=== PATIENT | female | born 1950 | race Caucasian/White ===

== ENCOUNTER 2023-06-01 10:08 | Outpatient (AMB) | payer OTHER, SELFPAY ==
--- NOTE | 2023-06-01 10:22 | MHC.PC.OV ---
Vital Signs 06/01/23 10:23 Height 5 ft 5 in Weight 126 lb 2 oz BMI 21.0 BP 120/70 Blood Pressure Location Lt brachial Position Sitting Pulse 52 Pulse Source Pulse Oximeter Pulse Oximetry (%) 98 Oxygen Delivery Method Room Air Intake Visit Reasons: SPOT WELDER LINE/ Medications Intake Note: Patient is a new patient here to establish care for HTN, Asthma. Transferring care from Dr. Christiano Fuentes. Medical records have been requested today. Skilled Nursing Case Manager Required: No Accompanied by: Self / Same As Patient Allergies SKYLAR Inhibitors Adverse Reaction (Mild, Verified 06/01/23 10:52) Rash amlodipine [From [facility]] Adverse Reaction (Mild, Verified 06/01/23 10:52) Rash Medication List - Last Reconciled 06/01/23 by Alvaro Butts PA-C albuterol sulfate 90 mcg/actuation (Ventolin HFA) 2 puffs inhalation Q6H PRN alendronate 35 mg PO QWEEK aspirin-acetaminophen (buffer) 250-250 mg tabs PO PRN calcium carbonate-vitamin D3 250 mg-3.125 mcg (125 unit) (Oyster Shell Calcium-Vitamin D3) 1 tab PO BID fluticasone propionate 50 mcg/actuation 1 spray intranasal DAILY dlzzmzdlsef-pxsfyccmt-gamzojdw 200-62.5-25 mcg (Trelegy Ellipta) 1 inh inhalation DAILY levothyroxine (Levoxyl) 75 mcg PO DAILY losartan 50 mg PO DAILY pravastatin 40 mg PO BEDTIME sumatriptan succinate take 1 tab at onset of headache; if no relief may repeat 1 tab after at least 2 hrs; max = 4 tabs/24 hr PO topiramate XR 25 mg PO BID Tobacco use date assessed: 06/01/23 Fall risk assessment: No Falls in past year Last assessed Fall Risk: 06/01/23 Dental Screening Dental Screen Date: 06/01/23 Did you have a dental visit in the last 12 months?: Yes Did you have a dental problem in the last 6 months where you did not have access to dental care?: No Was dental information given to patient?: Patient has dentist HPI SPOT WELDER LINE/ Medications HPI Details Patient is a 72-year-old female here today for a new patient visit. Previous PCP was at [facility]. Patient has a past medical history significant for moderate persistent asthma, migraine disorder, osteopenia, hypothyroidism, hypertension and hyperlipidemia. Concern--> reports she did get a colonoscopy last year which showed a very large colon polyp that grew fast. There were concerns for possible colon resection needed. She needed repeat colonoscopy in 1 year. Will try to set up with [facility] .. Asthma : Is followed by a registration scheduling specialist in the [place] area. Has been well controlled with current maintenance inhaler p.r.n. use of her albuterol inhaler. .. Migraines : Migraine disorder has been well controlled with daily Topamax and p.r.n. use of Imitrex. .. HTN: Patient's blood pressure acceptable today in office. She does report monitoring her blood pressure at home reports normal readings. .. Osteopenia: Patient continues on half dose of Fosamax for her osteopenia. Did have bone density about 2-3 years ago which showed some improvement, will wait records. Family history of bladder cancer: She reports her brother and her father both diagnosed with bladder cancer. Both were smokers. She does get surveillance imaging on a annual basis with urologist at [facility]. [facility] Medical History (Updated 06/01/23 @ 11:04 by Alvaro Butts PA-C) Mild intermittent asthma, uncomplicated Personal history of colonic polyps Lesion of throat SI joint arthritis Chronic osteoarthritis Osteoarthritis of sacroiliac joint Osteoarthritis of right hip Nabothian cyst Lumbar spondylosis SHEBA positive Colon polyps Closed fracture of right ankle B12 deficiency Asthma Migraine Hyperlipidemia Hypertension Hypothyroidism Allergic rhinitis Osteopenia Surgical History (Updated 06/01/23 @ 12:46 by Alvaro Butts PA-C) History of partial hysterectomy Family History (Updated 06/01/23 @ 10:58 by Alvaro Butts PA-C) Father Bladder cancer Brother Bladder cancer Social History Housing: House e-Cigarette/Vaping Use: Never Used service: No Current occupational status: retired Cognitive needs: No Hearing needs: No Vision needs: Yes Questionnaire PHQ-9 Over the last 2 weeks, how often have you been bothered by any of the following problems? 1. Little interest or pleasure in doing things: not at all 2. Feeling down, depressed, or hopeless: not at all 3. Trouble falling or staying asleep, or sleeping too much: not at all 4. Feeling tired or having little energy: not at all 5. Poor appetite or overeating: not at all 6. Feeling bad about yourself - or that you are a failure or have let yourself or your family down: not at all 7. Trouble concentrating on things, such as reading the newspaper or watching television: not at all 8. Moving or speaking so slowly that other people could have noticed. Or the opposite - being so fidgety or restless that you have been moving around a lot more than usual: not at all 9. Thoughts that you would be better off or of hurting yourself in some way: not at all Total score: 0 Depression Screening Interpretation: Negative Depression Screening Done: Yes 49984 - PHQ-9 Billing: Yes Source: Developed by Drs. Arias Darden, Uzma Quintero, Judson Rascon and colleagues, with an educational zhane from [employer]. Thrive Questionnaire Date Thrive assessed: 06/01/23 I am a: Patient What is your living situation today?: I have a steady place to live Within the past 12 months, did the food you bought not last and you didn't have the money to get more?: Never true Within the past 12 months, did you worry whether your food would run out before you got money to buy more?: Never true Do you have trouble paying for medicines?: No Do you have trouble getting transportation to medical appointments?: No Do you have trouble paying your heating and electricity bill?: No Do you have trouble taking care of your child, family member or friend?: No Do you have trouble with day-to-day activities such as bathing, preparing meals, shopping, managing finances, etc.?: No Are you currently unemployed and looking for a job?: No Are you interested in more education?: No Please select the resources that you would like help with: None Currently or been in a relationship where the following occur: no concerns reported THRIVE Score: 0 AUDIT C Alcohol Use Questionnaire (AUDIT-C) 1. How often do you have a drink containing alcohol?: Never 3. How often do you have six or more drinks on one occasion?: Never Total Score: 0 SO-7 AMB Questionnaire SO-7 Date SO - 7 assessed: 06/01/23 Feeling nervous, anxious, or on edge: 0 = Not at all Not being able to stop or control worryin = Not at all Worrying too much about different things: 0 = Not at all Trouble relaxin = Not at all Being so restless that it is hard to sit still: 0 = Not at all Becoming easily annoyed or irritable: 0 = Not at all Feeling afraid as if something awful might happen: 0 = Not at all Total SO-7 score (0-4 normal; 5-9 mild; 10-14 moderate; 15-21 severe): 0 Source: Developed by Drs. Arias Darden, Uzma Quintero, Judson Rascon and colleagues, with an educational zhane from [employer]. SO-7 Assessment Billing SO-7 Assessment Tool: SO-7 Assessment 30588 Review of Systems Const Denies headache(s) Eyes Denies loss of vision ENT Denies vertigo, Denies dizziness, Denies headache(s) and Denies sore throat Card Denies chest pain, Denies leg edema and Denies lightheadedness Resp Denies cough, Denies hemoptysis and Denies wheezing GI Denies abdominal pain, Denies melena, Denies constipation, Denies diarrhea and Denies vomiting Denies urinary frequency, Denies dysuria and Denies urinary urgency Musc Denies arthralgias, Denies joint swelling, Denies numbness and Denies tingling Neuro Denies Abnormal speech present, Denies behavioral changes, Denies vertigo, Denies dizziness, Denies headache(s), Denies loss of vision, Denies memory loss, Denies numbness and Denies tingling Psych Denies anxiety, Denies behavioral changes, Denies depression, Denies memory loss and Denies panic attacks Nayan/Lymph Denies easy bleeding and Denies easy bruising Aller/Immun Denies wheezing Physical exam (Primary Care) Vital Signs: Last Vital Signs Pulse 52 06/01/23 10:23 BP 120/70 06/01/23 10:23 Pulse Ox 98 06/01/23 10:23 Oxygen Delivery Method Room Air 06/01/23 10:23 BMI result Body Mass Index 21.0 Tobacco/Smoking Status: Tobacco use Status Tobacco use date assessed 06/01/23 06/01/23 10:42 e-Cigarette/Vaping Use Never Used 06/01/23 10:42 PHQ-9: PHQ-9 Score PHQ-9: Total score 0 06/01/23 11:18 Depression Screening Interpretation: Negative Thrive Assessment: Date of Thrive Assessment Date Thrive assessed 06/01/23 06/01/23 10:56 Currently or been in a relationship where the following occur: no concerns reported Const General: healthy appearing, no acute distress, alert and awake Nutritional Appearance: well nourished Orientation/consciousness: oriented to person, oriented to place and oriented to time HENMT Ears: TM's normal bilaterally General nose exam: Normal nasal mucous membranes and turbinates present Eyes Conjunctivae: conjunctivae normal Sclerae: sclerae normal Pupils: Equal, round and reactive pupils present Neck Neck: Yes no lymphadenopathy and Yes no JVD Thyroid: Thyroid normal Carotids: no bruits Resp Effort & Inspection: normal respiratory effort and not tachypneic Auscultation: no crackles, no rales, no rhonchi and no wheezes Cardio Rate: regular rate Rhythm: regular rhythm Heart sounds: no murmurs and normal S1 and S2 GI Palpation (GI): Soft to palpation, nontender, no hepatomegaly and no splenomegaly Auscultation: normal bowel sounds Skin General skin exam: no rashes or lesions noted and dry skin Neuro General: oriented to person, oriented to place and oriented to time Cranial nerves: Yes Equal, round and reactive pupils present Speech: No Abnormal speech present Gait exam (Neuro): Normal gait present Motor exam (neuro): no tremor noted Extrem Right upper extremity: full ROM Left upper extremity: full ROM Right lower extremity: full ROM; no edema Left lower extremity: full ROM; no edema Psych Mental Status: mental status grossly normal Speech and movement: Normal speech and movement present Affect: normal affect Attitude: cooperative Thought process: Normal thought process present Assessment and Plan Assessment & Plan (1) Hypertension: Code(s): I10 - Essential (primary) hypertension Qualifiers: Hypertension type: primary hypertension Qualified Code(s): I10 - Essential (primary) hypertension Plan: Patient's blood pressure acceptable today in office. Will continue her current dose of losartan. Goal blood pressure is to be below 140/90 (2) Osteopenia: Code(s): M85.80 - Other specified disorders of bone density and structure, unspecified site Qualifiers: Laterality: unspecified laterality Osteopenia location: hip Qualified Code(s): M85.859 - Other specified disorders of bone density and structure, unspecified thigh Plan: Patient continues on half dose of Fosamax for osteopenia. Will need repeat bone density in next 2 years. (3) Hypothyroidism: Code(s): E03.9 - Hypothyroidism, unspecified Qualifiers: Hypothyroidism type: acquired Qualified Code(s): E03.9 - Hypothyroidism, unspecified Plan: Patient reports she has been stable with current dose of levothyroxine. She was followed by human resource professional previously.. Will recheck TSH to assure normal. (4) Hyperlipidemia: Code(s): E78.5 - Hyperlipidemia, unspecified Qualifiers: Hyperlipidemia type: mixed hyperlipidemia Qualified Code(s): E78.2 - Mixed hyperlipidemia Plan: Patient continues on pravastatin 40 mg. Lipid panels have been stable. Goal LDL is to remain below 130. (5) Asthma: Code(s): J45.909 - Unspecified asthma, uncomplicated Qualifiers: Asthma complication type: uncomplicated Asthma persistence: persistent Asthma severity: moderate Qualified Code(s): J45.40 - Moderate persistent asthma, uncomplicated Plan: Patient reports her asthma has been very well controlled with current controller inhalers and p.r.n. use of her albuterol inhaler. She does follow a registration scheduling specialist in the [facility]. Otherwise denies any asthma exacerbations or nighttime awakenings with asthma symptoms. (6) Colon polyps: Code(s): K63.5 - Polyp of colon Qualifiers: Colon location: ascending Colon polyp type: unspecified Qualified Code(s): K63.5 - Polyp of colon Plan: As per HPI reports she did get a colonoscopy last year which showed a very large colon polyp that grew fast. There were concerns for possible colon resection needed. She needed repeat colonoscopy in 1 year. Will try to set up with [facility] (7) Breast cancer screening: Code(s): Z12.39 - Encounter for other screening for malignant neoplasm of breast Qualifiers: Breast cancer screening modality: mammogram Qualified Code(s): Z12.31 - Encounter for screening mammogram for malignant neoplasm of breast Plan: Did have mammogram in December of 2022. (8) Family history of bladder cancer: Code(s): Z80.52 - Family history of malignant neoplasm of bladder Plan: As per HPI (9) Migraine: Code(s): G43.909 - Migraine, unspecified, not intractable, without status migrainosus Qualifiers: Intractability: not intractable Migraine type: unspecified Status migrainosus presence: without status migrainosus Qualified Code(s): G43.909 - Migraine, unspecified, not intractable, without status migrainosus Plan: Patient reports her migraine disorder has been well controlled with current dose of Topamax. Does use sumatriptan and or Excedrin on as needed basis for breakthrough migraines. (10) B12 deficiency: Code(s): E53.8 - Deficiency of other specified B group vitamins Plan: Has a history B12 deficiency. She does take a B12 oral supplement.. Will recheck B12 (11) Tendinopathy of right shoulder: Code(s): M67.911 - Unspecified disorder of synovium and tendon, right shoulder Plan: Reports doing yoga and injured her right shoulder. Has been having some pinpoint anterior shoulder pain. Otherwise no limitations in her range of motion. Has been using naproxen though has not been effective. Will supply patient with meloxicam. Orders: Orders Lipid Panel Today E78.5 - Hyperlipidemia, unspecified Comprehensive [place]. Panel Fast Today I10 - Essential (primary) hypertension Vitamin B12 and Folate Today E53.8 - Deficiency of other specified B group vitamins TSH reflex Free T4 Today E03.9 - Hypothyroidism, unspecified Microalbumin, Random (w Creat) Today I10 - Essential (primary) hypertension Complete Blood Count no Diff Today I10 - Essential (primary) hypertension Referrals Gastroenterology Referral K63.5 - Polyp of colon Medications: New meloxicam 15 mg PO DAILY PRN 14 tabs 0RF pain (scale score 7-10) 14 days M67.911 - Unspecified disorder of synovium and tendon, right shoulder Coding Level of Care Code New Pt Level 4 (50808) Diagnoses Primary hypertension I10 Hypertension type: primary hypertension Osteopenia of hip, unspecified laterality M85.859 Laterality: unspecified laterality Osteopenia location: hip Acquired hypothyroidism E03.9 Hypothyroidism type: acquired Mixed hyperlipidemia E78.2 Hyperlipidemia type: mixed hyperlipidemia Moderate persistent asthma without complication J45.40 Asthma complication type: uncomplicated Asthma persistence: persistent Asthma severity: moderate Polyp of ascending colon, unspecified type K63.5 Colon location: ascending Colon polyp type: unspecified Encounter for screening mammogram for malignant neoplasm of breast Z12.31 Breast cancer screening modality: mammogram Family history of bladder cancer Z80.52 Migraine without status migrainosus, not intractable, unspecified migraine type G43.909 Intractability: not intractable Migraine type: unspecified Status migrainosus presence: without status migrainosus B12 deficiency E53.8 Tendinopathy of right shoulder M67.911 Additional Codes SO-7 Assessment Billing - SO-7 Assessment Tool: SO-7 Assessment 52932 ([id number])
[2023-06-01 10:23] VITALS: BP 120/70; PULSE 52; O2SAT 98; BMI 21.0
== END 2023-06-01 11:17 | disposition home or self-care (01) ==
PROVIDERS: PCP Physician Assistant; Visit Provider Physician Assistant
DX: I10 Essential (primary) hypertension (principal); M85.859 Other specified disorders of bone density and structure, unspecified thigh; E03.9 Hypothyroidism, unspecified; E78.2 Mixed hyperlipidemia; J45.40 Moderate persistent asthma, uncomplicated; K63.5 Polyp of colon; Z12.31 Encounter for screening mammogram for malignant neoplasm of breast; Z80.52 Family history of malignant neoplasm of bladder; G43.909 Migraine, unspecified, not intractable, without status migrainosus; E53.8 Deficiency of other specified B group vitamins; M67.911 Unspecified disorder of synovium and tendon, right shoulder
CPT/HCPCS: 99204

== ENCOUNTER 2023-09-22 09:51 | Outpatient (AMB) | payer OTHER, SELFPAY ==
--- NOTE | 2023-09-22 09:59 | A.OFFVIS_ITS ---
Vital Signs 09/22/23 10:05 Height 5 ft 5 in Weight 127 lb 13.89 oz BMI 21.3 BP 107/67 Blood Pressure Location Lt brachial Position Sitting Pulse 66 Intake Visit Reasons: Colonoscopy Screening Intake Note: Karen presents to in office visit today as a new patient for colonoscopy screening. CC: Patient's last colonoscopy was done last year at [facility]. Billing And Accounting Staff Assistant Required: No Accompanied by: Self / Same As Patient Allergies SKYLAR Inhibitors Adverse Reaction (Mild, Verified 09/22/23 10:10) Cough amlodipine [From [facility]] Adverse Reaction (Mild, Verified 09/22/23 10:10) Rash HPI HPI Colonoscopy Screening: Details: 73-year-old female here for preprocedural meeting to discuss a screening colonoscopy. She is referred by Alvaro Butts Asthma Hypertension High cholesterol Hypothyroid Osteopenia History of colon polyps Migraines Generalized osteoarthritis Lumbar spondylosis History of right ankle fracture * SURGICAL HISTORY Hysterectomy Ankle fx repair Left knee arthroscopic Rt arthorscopic hip repair cataract surg * ALLERGIES SKYLAR inhibitors Amlodipine - rash * [employer] LABS: None in our system HER LAST COLONOSCOPIES SCANNED INTO OUR SYSTEM FROM [facility] TODAY'S VISIT Her last colonoscopy was at [facility], she says I am a frequent flyer. On her last colonoscopy she had a 3mm and very deep polyp in the cecum. PRIOR TO THAT EXAM SHE HAD 3 TUBULAR ADENOMAS REMOVED. She suffers some CIC that resolves well with Miralax (but she did not do well with Mirlax prep or 1/2 lytely), No upper GI problems. There are no prior problems with anesthesia or sedation. Her asthma is well controlled and she denies any cardiac problems. NO ID problems. He has a hx of polyps the last very large. 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!) [facility] Medical History (Reviewed 09/22/23 @ 10:14 by Florence Null [facility] Mild intermittent asthma, uncomplicated Personal history of colonic polyps Lesion of throat SI joint arthritis Chronic osteoarthritis Osteoarthritis of sacroiliac joint Osteoarthritis of right hip Nabothian cyst Lumbar spondylosis SHEBA positive Colon polyps Closed fracture of right ankle B12 deficiency Asthma Migraine Hyperlipidemia Hypertension Hypothyroidism Allergic rhinitis Osteopenia Surgical History H/O colonoscopy History of cataract surgery S/P left knee arthroscopy History of hip surgery History of partial hysterectomy Family History Father Bladder cancer Brother Bladder cancer Social History Housing: House e-Cigarette/Vaping Use: Never Used service: No Current occupational status: retired Cognitive needs: No Hearing needs: No Vision needs: Yes Review of Systems Const Denies fatigue, Denies fever(s), Denies night sweats, Denies poor appetite and Denies weight loss Eyes Reports requires corrective lenses ENT Reports Normal hearing present, Denies dental pain, Denies dysphagia, Denies hearing loss, Denies mouth pain, Denies odynophagia, Denies throat swelling, Denies tongue swelling and Reports other (Dentition adequate) Card Reports no additional complaints Resp Reports no additional complaints GI Details: Denies abdominal pain, Denies melena, Denies bloating, Denies hematochezia, Reports constipation, Denies GI cramping, Denies dysphagia, Denies excessive flatus, Denies early satiety, Denies heartburn, Denies diarrhea, Denies nausea, Denies odynophagia, Denies vomiting and Denies hematemesis Skin/Breast Denies pruritus, Denies lesions, Denies rash and Denies jaundice Neuro Reports Normal hearing present and Denies Abnormal speech present Endo Denies fatigue Aller/Immun Denies throat swelling and Denies tongue swelling Physical Exam Vital Signs: Last Vital Signs Pulse 66 09/22/23 10:05 BP 107/67 09/22/23 10:05 BMI result Body Mass Index 21.3 Const General: cooperative, no acute distress, well developed and well groomed Nutritional Appearance: average body habitus and well nourished Orientation/consciousness: oriented to person, oriented to place and oriented to time Limitations: No language barrier HEENT Head: Yes normocephalic and Yes atraumatic Eyes General: appearance normal, both eyes and all related structures Pupils: Equal, round and reactive pupils present Neck Neck: Yes normal visual inspection and Yes no lymphadenopathy Thyroid: Thyroid normal Resp Effort & Inspection: normal respiratory effort and able to speak in complete sentences Auscultation: clear to auscultation bilaterally Cardio Rate: regular rate Rhythm: regular rhythm Heart sounds: Normal, physiologic split S2 sound present Peripheral pulses: radial pulses present and posterior tibial pulses present GI Inspection: No distended and No Abdominal panniculus present Palpation (GI): Soft to palpation, nontender, no guarding, not rigid and No hepatosplenomegaly present Percussion: Yes normal to percussion Auscultation: normal bowel sounds Rectal Exam - Female: deferred Skin General skin exam: no rashes or lesions noted, turgor normal, skin not dry, no jaundice, No spider nevi and no striae Rashes: no rashes Nails: normal Neuro General: oriented to person, oriented to place and oriented to time Cranial nerves: Yes Equal, round and reactive pupils present and Yes Normal hearing present Speech: No Abnormal speech present Extrem General: Yes normal to inspection, No clubbing, No cyanosis and No edema Psych Appearance: grossly normal and well kempt Mental Status: mental status grossly normal Speech and movement: Normal speech and movement present Affect: normal affect Attitude: cooperative Thought process: Normal thought process present and not confabulating Thought content: Normal thought content present Insight: Good insight present (Psych) Judgement: Good judgement present (Psych) Assessment & Plan Assessment & Plan (1) Tubular adenoma of colon: Comment: LARGE 3 MM TA REMOVED 1 YEAR AGO [facility] Code(s): D12.6 - Benign neoplasm of colon, unspecified Category: Medical Plan Her last colonoscopy was at [facility], she says I am a frequent flyer. On her last colonoscopy she had a 3mm and very deep polyp in the cecum. PRIOR TO THAT EXAM SHE HAD 3 TUBULAR ADENOMAS REMOVED. She suffers some CIC that resolves well with Miralax (but she did not do well with Mirlax prep or 1/2 lytely), No upper GI problems. There are no prior problems with anesthesia or sedation. Her asthma is well controlled and she denies any cardiac problems. NO ID problems. He has a hx of polyps the last very large. 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 Panel Fast 06/01/23 I10 - Essential (primary) hypertension Medications: New sod sulf-pot chloride-mag sulf 1.479-0.188- 0.225 gram (Sutab) PO PER PKG DIR for colonoscopy prep 24 tabs 0RF Coding Level of Care Code New Pt Level 3 (54205) Diagnoses Tubular adenoma of colon D12.6
[2023-09-22 10:05] VITALS: BP 107/67; PULSE 66; BMI 21.3
== END 2023-09-22 10:46 | disposition home or self-care (01) ==
PROVIDERS: PCP Physician Assistant; Visit Provider Nurse Practitioner
DX: D12.6 Benign neoplasm of colon, unspecified (principal)
CPT/HCPCS: 99203

== ENCOUNTER → 2023-09-22 09:51 | Outpatient (BNVA) | payer OTHER, SELFPAY | PROVIDERS: PCP Physician Assistant; Visit Provider Nurse Practitioner ==

== ENCOUNTER 2023-10-25 14:15 | Outpatient (AMB) | payer OTHER, SELFPAY ==
[2023-10-25 14:31] VITALS: BP 128/66; PULSE 67; O2SAT 96; BMI 21.6
--- NOTE | 2023-10-25 14:31 | A.OFFPC_ITS ---
Vital Signs 3 10/25/23 14:31 Height 5 ft 5 in Weight 130 lb BMI 21.6 BP 128/66 Blood Pressure Location Lt brachial Position Sitting Pulse 67 Pulse Source Pulse Oximeter Pulse Oximetry (%) 96 Oxygen Delivery Method Room Air Intake Visit Reasons: Urgent Care FU for 2 fractures. Accompanied by: Spouse Allergies SKYLAR Inhibitors Adverse Reaction (Mild, Verified 10/25/23 14:51) Cough amlodipine [From [facility]] Adverse Reaction (Mild, Verified 10/25/23 14:51) Rash Medication List - Last Reconciled 10/25/23 by Alvaro Butts PA-C albuterol sulfate 90 mcg/actuation (Ventolin HFA) 2 puffs inhalation Q6H PRN alendronate 35 mg PO QWEEK aspirin-acetaminophen (buffer) 250-250 mg tabs PO PRN calcium carbonate-vitamin D3 250 mg-3.125 mcg (125 unit) (Oyster Shell Calcium- Vitamin D3) 1 tab PO BID fluticasone propionate 50 mcg/actuation 1 spray intranasal DAILY lurmsvebxak-taaqetwje-rwmynuxh 200-62.5-25 mcg (Trelegy Ellipta) 1 inh inhalation DAILY levothyroxine (Levoxyl) 75 mcg PO DAILY losartan 50 mg PO DAILY meloxicam 15 mg PO DAILY PRN 14 days polyethylene glycol 3350 (Miralax) 17 grams PO DAILY pravastatin 40 mg PO BEDTIME sod sulf-pot chloride-mag sulf 1.479-0.188- 0.225 gram (Sutab) PO PER PKG DIR for colonoscopy prep sumatriptan succinate take 1 tab at onset of headache; if no relief may repeat 1 tab after at least 2 hrs; max = 4 tabs/24 hr PO topiramate XR 25 mg PO BID Tobacco use date assessed: 06/01/23 Fall risk assessment: 1 Fall in past year (Fall on 10/22/23 ) Last assessed Fall Risk: 10/25/23 Dental Screening Dental Screen Date: 06/01/23 HPI Urgent Care FU for 2 fractures. 2 HPI0 Details Patient is a 73-year-old female here today for follow-up visit.. Patient has a past medical history significant for moderate persistent asthma, migraine disorder, osteopenia, hypothyroidism, hypertension and hyperlipidemia. Recently injured her right ankle and right wrist due to a fall. Was seen at urgent care and got x-rays which showed a right lateral malleolar fracture and a 1st digit hand fracture. She has been using an old Aircast and a scooter to offload her right lower extremity. Has been using a right wrist splint as well. She reports her pain is manageable with anti-inflammatory. [facility] Medical History Mild intermittent asthma, uncomplicated Personal history of colonic polyps Lesion of throat SI joint arthritis Chronic osteoarthritis Osteoarthritis of sacroiliac joint Osteoarthritis of right hip Nabothian cyst Lumbar spondylosis SHEBA positive Colon polyps Closed fracture of right ankle B12 deficiency Asthma Migraine Hyperlipidemia Hypertension Hypothyroidism Allergic rhinitis Osteopenia Surgical History H/O colonoscopy History of cataract surgery S/P left knee arthroscopy History of hip surgery History of partial hysterectomy Family History Father Bladder cancer Brother Bladder cancer Social History Housing: House e-Cigarette/Vaping Use: Never Used service: No Current occupational status: retired Cognitive needs: No Hearing needs: No Vision needs: Yes Questionnaire Thrive Questionnaire Date Thrive assessed: 06/01/23 SO-7 AMB Questionnaire SO-7 Date SO - 7 assessed: 06/01/23 Source: Developed by Drs. Arias Darden, Uzma Quintero, Judson Rascon and colleagues, with an educational zhane from [employer]. Physical exam (Primary Care) Vital Signs: Last Vital Signs Pulse 67 10/25/23 14:31 BP 128/66 10/25/23 14:31 Pulse Ox 96 10/25/23 14:31 Oxygen Delivery Method Room Air 10/25/23 14:31 BMI result Body Mass Index 21.6 Tobacco/Smoking Status: Tobacco use Status Tobacco use date assessed 06/01/23 10/25/23 14:44 e-Cigarette/Vaping Use Never Used 10/25/23 14:44 Thrive Assessment: Date of Thrive Assessment Date Thrive assessed 06/01/23 10/25/23 14:44 Extrem Hand/finger images: 2 1. TENDERNESS TO PALPATION IN THE AREA OUTLINED Ankle/foot/toe images: 2 1. SOME MODERATE SWELLING OVER THE LATERAL ASPECT OF THE RIGHT ANKLE Assessment and Plan Assessment & Plan (1) Closed right fibular fracture: Code(s): S82.401A - Unspecified fracture of shaft of right fibula, initial encounter for closed fracture Qualifiers: Encounter type: initial encounter Fibula location: lateral malleolus F racture alignment: nondisplaced Qualified Code(s): S82.64XA - Nondisplaced fracture of lateral malleolus of right fibula, initial encounter for closed fracture Plan: As per HPI, has access to an Aircast and offloading scooter. Will get repeat x- ray in 3 weeks to evaluate healing. Advised that she can bear weight as tolerated as her fractures and a nonweightbearing bone. (2) Right hand fracture: Code(s): S62.91XA - Unspecified fracture of right wrist and hand, initial encounter for closed fracture Qualifiers: Encounter type: subsequent encounter Fracture healing: with routine healing Fracture type: closed Qualified Code(s): S62.91XD - Unspecified fracture of right wrist and hand, subsequent encounter for fracture with routine healing Plan: As per HPI patient does have some snuffbox tenderness on physical exam. According to x-rays there was no scaphoid fracture though does have a fracture of the 1st digit. Will upload radiology reports from urgent care to patient's chart. (3) Tenderness of anatomical snuffbox: Code(s): M79.643 - Pain in unspecified hand Orders: Orders 2 XR ankle RT 2V 3 Weeks S82.64XA - Nondisplaced fracture of lateral malleolus of right fibula, initial encounter for closed fracture XR tibia fibula RT 2V 3 Weeks S82.64XA - Nondisplaced fracture of lateral malleolus of right fibula, initial encounter for closed fracture Referrals 2 Orthopedics Referral M79.643 - Pain in unspecified hand, S62.91XD - Unspecified fracture of right wrist and hand, subsequent encounter for fracture with routine healing Medications: Changed 2 From alendronate 35 mg PO QWEEK M85.80 - Other specified disorders of bone density and structure, unspecified site To alendronate 35 mg PO QWEEK 13 tabs 2RF 90 days M85.80 - Other specified disorders of bone density and structure, unspecified site From vjuvudrdfpv-pvcqmgnbb-othiirsc 200-62.5-25 mcg (Trelegy Ellipta) 1 inh inhalation DAILY J45.909 - Unspecified asthma, uncomplicated To yzwlkjjpbus-ltzgunexl-vywrfzmf 200-62.5-25 mcg (Trelegy Ellipta) 1 inh inhalation DAILY 3 inhalers 2RF 90 days J45.909 - Unspecified asthma, uncomplicated From levothyroxine (Levoxyl) 75 mcg PO DAILY E03.9 - Hypothyroidism, unspecified To levothyroxine (Levoxyl) 75 mcg PO DAILY 90 tabs 2RF 90 days E03.9 - Hypothyroidism, unspecified From losartan 50 mg PO DAILY I10 - Essential (primary) hypertension To losartan 50 mg PO DAILY 90 tabs 2RF 90 days I10 - Essential (primary) hypertension From pravastatin 40 mg PO BEDTIME E78.5 - Hyperlipidemia, unspecified To pravastatin 40 mg PO BEDTIME 90 tabs 2RF 90 days E78.5 - Hyperlipidemia, unspecified From topiramate XR 25 mg PO BID G43.909 - Migraine, unspecified, not intractable, without status migrainosus To topiramate XR 25 mg PO BID 180 caps 2RF 90 days G43.909 - Migraine, unspecified, not intractable, without status migrainosus From albuterol sulfate 90 mcg/actuation (Ventolin HFA) 2 puffs inhalation Q6H PRN To albuterol sulfate 90 mcg/actuation (Ventolin HFA) 2 puffs inhalation Q6H 3 inhalers 1RF 90 days Coding Level of Care Code Est Pt Level 3 (12776) Diagnoses Closed nondisplaced fracture of lateral malleolus of right fibula, initial encounter S82.64XA Encounter type: initial encounter Fibula location: lateral malleolus Fracture alignment: nondisplaced Closed fracture of right hand with routine healing, subsequent encounter S62.91XD Encounter type: subsequent encounter Fracture healing: with routine healing Fracture type: closed Tenderness of anatomical snuffbox M79.643
== END 2023-10-25 15:18 | disposition home or self-care (01) ==
PROVIDERS: PCP Physician Assistant; Visit Provider Physician Assistant
DX: S82.64XA Nondisplaced fracture of lateral malleolus of right fibula, initial encounter for closed fracture (principal); S62.91XD Unspecified fracture of right hand, subsequent encounter for fracture with routine healing; M79.643 Pain in unspecified hand
CPT/HCPCS: 99213

== ENCOUNTER 2023-10-28 07:34 | Outpatient (REF) | payer OTHER, SELFPAY ==
--- NOTE | ~2023-10-28 | XR_ITS ---
EXAMINATION: XR WRIST, RIGHT CLINICAL INFORMATION: Right hand pain COMPARISON: None available. TECHNIQUE: PA, lateral, oblique, and scaphoid views of the right wrist. FINDINGS: No acute fracture or malalignment. Moderate 1st CMC joint osteoarthritis. No radiopaque foreign body. XR/XR wrist RT w scaphoid IMPRESSION: No acute fracture or malalignment. Moderate 1st CMC joint osteoarthritis. Electronically signed by: Roman Albert MD 11/03/2023 08:36 AM EDT
== END 2023-10-28 07:35 | disposition home or self-care (01) ==
LOC: HO.HOSX 07:34
PROVIDERS: PCP Physician Assistant
DX: M79.641 Pain in right hand (principal); M18.11 Unilateral primary osteoarthritis of first carpometacarpal joint, right hand
CPT/HCPCS: 73110

== ENCOUNTER 2023-10-28 08:14 | Outpatient (AMB) | payer OTHER, SELFPAY ==
[2023-10-28 08:16] VITALS: BMI 21.6
--- NOTE | 2023-10-28 08:16 | A.OFFVIS_ITS ---
Vital Signs 10/28/23 08:16 Height 5 ft 5 in Weight 130 lb BMI 21.6 Intake Visit Reasons: FC- RT Wrist Unspecified fracture Intake Note: Karen is a 73 year old right hand dominant female who presents today for an ED evaluation s/p right thumb nondisplaced fracture, DOI 10/21/23. Patient reports she fell at home, twisting her ankle, using her hand to keep herself from hi tting the floor. She is currently experiencing pain on the radial aspect of the right hand but denies numbness and tingling. She is wearing a wrist brace she already had at home and is taking meloxicam for generalized pains. Denies prior injuries or surgeries to the right hand. Allergies SKYLAR Inhibitors Adverse Reaction (Mild, Verified 10/28/23 08:20) Cough amlodipine [From [facility]] Adverse Reaction (Mild, Verified 10/28/23 08:20) Rash HPI HPI FC- RT Wrist Unspecified fracture: Details: Patient is a 73-year-old female who presents for evaluation of right wrist pain after a fall, date of injury 10/21/2023. The patient reports that when she fell, she both twisted her ankle and struck her right hand on the floor, has been experiencing significant pain in the right wrist and thumb ever since. Patient reports that she was previously evaluated at the urgent care, where x-rays were taken, in the only significant finding on x-ray but the radiologist was a distal tuft fracture of the right thumb. Patient was also evaluated by her primary care, who sent her for evaluation by us due to concerns for right anatomical snuffbox tenderness. Today, the patient reports that she is still experiencing significant pain in the radial wrist and the base of the right thumb, and that both palpation and range of motion are extremely painful. Patient denies any numbness or tingling in the right upper extremity. No other acute complaints or concerns at this time. [facility] Medical History Mild intermittent asthma, uncomplicated Personal history of colonic polyps Lesion of throat SI joint arthritis Chronic osteoarthritis Osteoarthritis of sacroiliac joint Osteoarthritis of right hip Nabothian cyst Lumbar spondylosis SHEBA positive Colon polyps Closed fracture of right ankle B12 deficiency Asthma Migraine Hyperlipidemia Hypertension Hypothyroidism Allergic rhinitis Osteopenia Surgical History H/O colonoscopy History of cataract surgery S/P left knee arthroscopy History of hip surgery History of partial hysterectomy Family History Father Bladder cancer Brother Bladder cancer Social History (Updated 10/28/23 @ 08:20 by GINNY Hudson) Housing: House e-Cigarette/Vaping Use: Never Used service: No Current occupational status: retired Current occupation: rt handed Cognitive needs: No Hearing needs: No Vision needs: Yes Review of Systems Const All systems reviewed & are unremarkable except as noted in HPI and below Physical Exam Vital Signs: BMI result Body Mass Index 21.6 Extrem Other: Patient is alert, oriented, and in no acute distress. Neuro: Normal sensation of the tips of all digits of the right hand this time. Vascular: Cap refill brisk Pain: Patient reports significant tenderness to palpation to the base of the right thumb and the thenar eminence of the right hand and wrist Some tenderness to palpation about the anatomical snuffbox, however the patient reports that this is mostly in the base of the thumb No tenderness to palpation about the ulnar wrist No other tenderness to palpation about the right hand or wrist noted ROM: Patient is able to partially flex and extend the right thumb, but this is restricted due to pain Patient is able to make a full closed fist and extend all other digits of the right hand without difficulty Skin: No lacerations or abrasions. General: No ecchymosis, erythema, or evidence of infection. Psych: Appears grossly normal Affect normal Attitude cooperative Results Reviewed Results Reviewed: X-rays obtained in the office today and independently reviewed by me, Matt Rueda PA-C, demonstrate no radio evident fracture or acute bony abnormality. Assessment & Plan Assessment & Plan (1) Tenderness of anatomical snuffbox: Code(s): M79.643 - Pain in unspecified hand Category: Medical Plan 1. Tenderness of right thumb and anatomical snuffbox after fall Date of injury 11/21/2023 Due to significant tenderness to palpation and pain with range of motion, patient is referred for urgent CT of the right wrist for assessment of the scaphoid and other bones of the right wrist and hand. Patient will be re-evaluated at her CT scan for results review and discussion of further treatment options at that time In the meantime, patient is told that she should remain in her thumb spica splint previously provided to her in the urgent care like a cast until follow-up Patient is amenable to this plan Patient will follow-up after CT scan for results review and discussion of further treatment options, sooner with any acute concerns Orders: Orders CT wrist RT wo IV con Today M79.643 - Pain in unspecified hand XR wrist RT w scaphoid Today M79.641 - Pain in right hand Coding Level of Care Code New Pt Level 3 (14146) Diagnoses Tenderness of anatomical snuffbox M79.643
== END 2023-10-28 08:55 | disposition home or self-care (01) ==
PROVIDERS: PCP Physician Assistant
DX: M79.641 Pain in right hand (principal); M25.531 Pain in right wrist
CPT/HCPCS: 99203

== ENCOUNTER 2023-10-28 14:45 | Outpatient (REF) | payer MEDICARE, SELFPAY ==
--- NOTE | ~2023-10-28 | CT_ITS ---
EXAMINATION: CT WRIST WITHOUT CONTRAST, RIGHT CLINICAL INFORMATION: Concern for scaphoid fracture COMPARISON: Radiographs 10/28/2023 TECHNIQUE: A noncontrast CT is performed on the right wrist with sagittal and coronal reformats. This CT examination was performed using dose optimization techniques as appropriate, variously including the following: *Automated exposure control *Adjustment of mA and/or kV according to patient size (this includes techniques or standardized protocols for targeted exams where dose is matched to indication/reason for exam; i.e. extremities or head) *Use of iterative reconstruction technique DLP: 133 mGy-cm FINDINGS: No acute fracture or malalignment. Degenerative cysts at the volar aspect of the distal pole of the scaphoid narrowing of the triscaphe articulation. Moderate 1st CMC joint osteoarthritis. CT/CT wrist RT wo IV con IMPRESSION: No acute osseous abnormality. Moderate triscaphoid and 1st CMC joint osteoarthritis. Electronically signed by: Roman Albert MD 10/28/2023 04:15 PM EDT
== END 2023-10-28 14:46 | disposition home or self-care (01) ==
LOC: HO.CT 14:45
PROVIDERS: PCP Physician Assistant
DX: M79.641 Pain in right hand (principal)
CPT/HCPCS: 73200

== ENCOUNTER 2023-11-04 13:34 | Outpatient (AMB) | payer OTHER, SELFPAY ==
--- NOTE | 2023-11-04 13:35 | A.OFFVIS_ITS ---
Intake Visit Reasons: OV- RT wrist CT scan review Intake Note: Karen is a 73 year old right hand dominant female who presents for a CT review of the right wrist done on 10/28/2023 S/P fall DOI: 10/21/2023 Allergies SKYLAR Inhibitors Adverse Reaction (Mild, Verified 11/04/23 13:35) Cough amlodipine [From [facility]] Adverse Reaction (Mild, Verified 11/04/23 13:35) Rash HPI HPI OV- RT wrist CT scan review: Details: Patient is a 73-year-old female who presents for right wrist CT scan review. Today, the patient reports that her symptoms have improved significantly, and then she is only experiencing very minor discomfort in her right wrist at this time. The patient states that she did not get her portal to see if the results of her CT scan were, and saw that they were negative for any fracture or acute bony abnormality. Patient has continued wearing of the Velcro thumb spica splint previously provided to her the urgent care. Patient denies any numbness or tingling in the right upper extremity. No other acute complaints or concerns at this time. [facility] Medical History Mild intermittent asthma, uncomplicated Personal history of colonic polyps Lesion of throat SI joint arthritis Chronic osteoarthritis Osteoarthritis of sacroiliac joint Osteoarthritis of right hip Nabothian cyst Lumbar spondylosis SHEBA positive Colon polyps Closed fracture of right ankle B12 deficiency Asthma Migraine Hyperlipidemia Hypertension Hypothyroidism Allergic rhinitis Osteopenia Surgical History H/O colonoscopy History of cataract surgery S/P left knee arthroscopy History of hip surgery History of partial hysterectomy Family History Father Bladder cancer Brother Bladder cancer Social History (Updated 10/28/23 @ 08:20 by GINNY Hudson) Housing: House e-Cigarette/Vaping Use: Never Used service: No Current occupational status: retired Current occupation: rt handed Cognitive needs: No Hearing needs: No Vision needs: Yes Review of Systems Const All systems reviewed & are unremarkable except as noted in HPI and below Physical Exam Extrem Other: Patient is alert, oriented, and in no acute distress. Neuro: Normal sensation of the tips of all digits of the right hand at this time Vascular: Cap refill brisk Pain: Tenderness to palpation of the radial styloid No tenderness to the anatomical snuffbox of the right hand today ROM: Patient is able to make a closed fist and extend digits of the right hand fully and without difficulty Positive Elma test on the right Skin: No lacerations or abrasions. General: Very mild ecchymosis, no erythema, or evidence of infection. Psych: Appears grossly normal Affect normal Attitude cooperative Office Procedures Tendon Injection Tendon Injection Details: De Quervain tenosynovitis injection [id number] Tendon Sheath Injection All charges added?: Procedure code (CPT) selection complete Results Reviewed Results Reviewed: CT scan obtained on 10/28/2023 and independently reviewed by me, Matt Marley, demonstrates no fracture or acute bony abnormality of the right hand or wrist. Cystic changes are noted in the right scaphoid. Assessment & Plan Assessment & Plan (1) De Quervain's tenosynovitis, right: Code(s): M65.4 - Radial styloid tenosynovitis [de Quervain] Category: Medical Plan 1. De Quervain tenosynovitis, right Injection #1: The risks and benefits of a steroid injection including but not limited to risk of damage to blood vessels, nerves, tendons, infection, skin bleaching, failure to improve symptoms, increased pain, and possible need for further injections or other intervention were discussed with the patient and the patient wishes to proceed with the steroid injection. Once consent was obtained, I aseptically prepped the area over the 1st dorsal compartment of the right thumb. I then injected the 1st dorsal compartment with a combination of 1 mL of dexamethasone (4mg/ml), and 1% lidocaine. The patient tolerated the procedure well with no complications and good resolution of their symptoms prior to leaving clinic. If the patient continues to have pain 6-8 weeks following this injection, they may call to schedule appointment to discuss alternative treatment options, sooner with any acute concerns 2. Anatomical snuffbox tenderness of right wrist Resolved No evidence of fracture on CT scan Coding Level of Care Code Est Pt Level 3 (18700) Diagnoses De Quervain's tenosynovitis, right M65.4 CPT Codes Tendon Injection - Tendon Injection 1: [id number] Tendon Sheath Injection ([id number])
== END 2023-11-04 14:13 | disposition home or self-care (01) ==
PROVIDERS: PCP Physician Assistant
DX: M65.4 Radial styloid tenosynovitis [de Quervain] (principal)
CPT/HCPCS: 20550; 99213

== ENCOUNTER → 2023-11-04 13:34 | Outpatient (BNVA) | payer OTHER, SELFPAY | PROVIDERS: PCP Physician Assistant | DX: M65.4 Radial styloid tenosynovitis [de Quervain] (principal) | CPT/HCPCS: 20550; J1100 ==

== ENCOUNTER 2023-11-15 08:27 | Outpatient (REF) | payer OTHER, SELFPAY ==
--- NOTE | ~2023-11-15 | XR_ITS ---
EXAMINATION: XR TIBIA AND FIBULA, RIGHT CLINICAL INFORMATION: S82.64XA - Nondisplaced fracture of lateral malleolus of right fibula. COMPARISON: Same day 11/15/2023 right ankle x-ray. TECHNIQUE: AP and lateral views of the right tibia and fibula were obtained. FINDINGS: Redemonstration of minimally displaced avulsion fracture arising from the tip of the lateral malleolus. See discussion on the ankle x-ray. Otherwise, no additional fracture, dislocation, or focal bone abnormality. Normal bone mineralization. The ankle mortise and knee joints are preserved in anatomic alignment. Mild soft tissue swelling over lateral malleolus. XR/XR tibia fibula RT 2V IMPRESSION: 1. Minimally displaced avulsion fracture tip of lateral malleolus. 2. Otherwise, normal right tibia and fibula. Electronically signed by: Nilo Cid MD 01/23/2024 10:09 AM BLANK Workstation: [id number]
--- NOTE | ~2023-11-15 | XR_ITS ---
EXAMINATION: XR ANKLE, RIGHT CLINICAL INFORMATION: S82.64XA - Nondisplaced fracture of lateral malleolus of right fibula, i... COMPARISON: None available. TECHNIQUE: AP, lateral, and mortise views of the right ankle. FINDINGS: Submitted for interpretation on January 23, 2024. Horizontally oriented cortical disruption at the lateral malleolus without gross malalignment. No lytic or blastic lesions. No metallic or radiopaque foreign body. XR/XR ankle RT 2V IMPRESSION: Concerning fracture lateral malleolus without displacement. Electronically signed by: Jamie Quarles MD 01/23/2024 10:08 AM EST
[2023-11-15 09:57] LABS: Creatinine Urine 66.91 mg/dL; Microalbum/Creatinine Ratio Ur 22.4 ug/mg cr (<30)
[2023-11-15 10:02] LABS: Cholesterol 154 mg/dL (<200); HDL Cholesterol 70 mg/dL (>40); LDL Cholesterol Calculated 73 mg/dL (<100); Triglycerides 56 mg/dL (<150)
[2023-11-15 10:22] LABS: Folate 16.3 ng/mL (> or = 4.0); Vitamin B12 803 pg/mL (200-900)
[2023-11-15 10:23] LABS: TSH reflex Free T4 0.83 uIU/mL (0.32-4.0)
== END 2023-11-15 08:28 | disposition home or self-care (01) ==
LOC: HO.LAB 08:27
PROVIDERS: PCP Physician Assistant; Visit Provider Physician Assistant
DX: S82.64XA Nondisplaced fracture of lateral malleolus of right fibula, initial encounter for closed fracture (principal); E53.8 Deficiency of other specified B group vitamins; E78.5 Hyperlipidemia, unspecified; I10 Essential (primary) hypertension; E03.9 Hypothyroidism, unspecified
CPT/HCPCS: 36415; 73590; 73600; 80061; 82043; 82570; 82607; 82746; 84443

== ENCOUNTER → 2023-11-15 08:48 | Outpatient (BNV) | payer OTHER, SELFPAY | PROVIDERS: PCP Physician Assistant; Visit Provider Radiology Diagnostic Radiology | DX: S82.64XA Nondisplaced fracture of lateral malleolus of right fibula, initial encounter for closed fracture (principal) | CPT/HCPCS: 73590; 73600 ==

== ENCOUNTER 2023-12-01 09:46 | Outpatient (AMB) | payer OTHER, SELFPAY ==
--- NOTE | 2023-12-01 09:54 | A.OFFPC_ITS ---
Vital Signs 12/01/23 10:04 Height 5 ft 5 in Weight 123 lb 8 oz BMI 20.5 BP 118/80 Blood Pressure Location Lt brachial Position Sitting Pulse 67 Pulse Source Pulse Oximeter Pulse Oximetry (%) 98 Oxygen Delivery Method Room Air Intake Visit Reasons: f/u HTN/ Hypothyroid/ HLD - see comments Intake Note: Pt decline flu vaccine in the office. Pt will get Covid-19 and Flu at the pharmacy tomorrow. 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 Accompanied by: Self / Same As Patient Allergies SKYLAR Inhibitors Adverse Reaction (Mild, Verified 12/01/23 10:09) Cough amlodipine [From [facility]] Adverse Reaction (Mild, Verified 12/01/23 10:09) Rash Medication List - Last Reconciled 12/01/23 by Alvaro Butts PA-C albuterol sulfate 90 mcg/actuation (Ventolin HFA) 2 puffs inhalation Q6H 90 days alendronate 35 mg PO QWEEK 90 days aspirin-acetaminophen (buffer) 250-250 mg tabs PO PRN calcium carbonate-vitamin D3 250 mg-3.125 mcg (125 unit) (Oyster Shell Calcium- Vitamin D3) 1 tab PO BID fluticasone propionate 50 mcg/actuation 1 spray intranasal DAILY [id number] 200-62.5-25 mcg (Trelegy Ellipta) 1 inh inhalation DAILY 90 days levothyroxine (Levoxyl) 75 mcg PO DAILY 90 days losartan 50 mg PO DAILY 90 days meloxicam 15 mg PO DAILY PRN 14 days polyethylene glycol 3350 (Miralax) 17 grams PO DAILY pravastatin 40 mg PO BEDTIME 90 days sod sulf-pot chloride-mag sulf 1.479-0.188- 0.225 gram (Sutab) PO PER PKG DIR for colonoscopy prep sumatriptan succinate take 1 tab at onset of headache; if no relief may repeat 1 tab after at least 2 hrs; max = 4 tabs/24 hr PO topiramate XR 25 mg PO BID 90 days Tobacco use date assessed: 06/01/23 Fall risk assessment: No Falls in past year Last assessed Fall Risk: 12/01/23 Dental Screening Dental Screen Date: 06/01/23 HPI f/u HTN/ Hypothyroid/ HLD - see comments HPI Details Patient is a 73-year-old female here today for a follow-up visit. Patient has a past medical history significant for moderate persistent asthma, migraine disorder, osteopenia, hypothyroidism, hypertension and hyperlipidemia. Concern--> patient reports she has been having some right shoulder pain and decreased range of motion ever since her fall. She is interested in physical therapy Right wrist tenosynovitis: Patient did have a fall with concerns for a right wrist fracture. CT of the right wrist without any evidence of fracture. Followed by [facility] .. Right ankle fracture: She has a repeat ankle x-ray she is awaiting radiology read out. She has been in a Aircast walking boot for over the last 6 weeks. She still reports some pain and soreness to her right ankle though attributes this to being in an Aircast all day. Again still waiting radiologist read out over right ankle x-ray to confirm healing of her fracture. .. Asthma : Is followed by a plasma center technician in the [place] area. Has been well controlled with current maintenance inhaler p.r.n. use of her albuterol inhaler. .. Migraines : Migraine disorder has been well controlled with daily Topamax and p.r.n. use of Imitrex. .. HTN: Patient's blood pressure acceptable today in office. She does report monitoring her blood pressure at home reports normal readings. .. Osteopenia: Patient continues on half dose of Fosamax for her osteopenia. Did have bone density about 2-3 years ago which showed some improvement, will wait records. Family history of bladder cancer: She reports her brother and her father both diagnosed with bladder cancer. Both were smokers. She does get surveillance imaging on a annual basis with urologist at [facility]. 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 Has had a partial hysterectomy in the past- Does have her cervix [facility] Medical History Mild intermittent asthma, uncomplicated Personal history of colonic polyps Lesion of throat SI joint arthritis Chronic osteoarthritis Osteoarthritis of sacroiliac joint Osteoarthritis of right hip Nabothian cyst Lumbar spondylosis SHEBA positive Colon polyps Closed fracture of right ankle B12 deficiency Asthma Migraine Hyperlipidemia Hypertension Hypothyroidism Allergic rhinitis Osteopenia Surgical History H/O colonoscopy History of cataract surgery S/P left knee arthroscopy History of hip surgery History of partial hysterectomy Family History Father Bladder cancer Brother Bladder cancer Social History Housing: House e-Cigarette/Vaping Use: Never Used service: No Current occupational status: retired Current occupation: rt handed Cognitive needs: No Hearing needs: No Vision needs: Yes Questionnaire PHQ-9 Over the last 2 weeks, how often have you been bothered by any of the following problems? 1. Little interest or pleasure in doing things: not at all 2. Feeling down, depressed, or hopeless: not at all 3. Trouble falling or staying asleep, or sleeping too much: not at all 4. Feeling tired or having little energy: not at all 5. Poor appetite or overeating: not at all 6. Feeling bad about yourself - or that you are a failure or have let yourself or your family down: not at all 7. Trouble concentrating on things, such as reading the newspaper or watching television: not at all 8. Moving or speaking so slowly that other people could have noticed. Or the opposite - being so fidgety or restless that you have been moving around a lot more than usual: not at all 9. Thoughts that you would be better off or of hurting yourself in some way: not at all Total score: 0 Depression Screening Interpretation: Negative Depression Screening Done: Yes 47877 - PHQ-9 Billing: Yes Source: Developed by Drs. Arias Darden, Uzma Quintero, Judson Rascon and colleagues, with an educational zhane from [employer]. Thrive Questionnaire Date Thrive assessed: 12/01/23 I am a: Patient What is your living situation today?: I have a steady place to live Within the past 12 months, did the food you bought not last and you didn't have the money to get more?: Never true Within the past 12 months, did you worry whether your food would run out before you got money to buy more?: Never true Do you have trouble paying for medicines?: No Do you have trouble getting transportation to medical appointments?: No Do you have trouble paying your heating and electricity bill?: No Do you have trouble taking care of your child, family member or friend?: No Do you have trouble with day-to-day activities such as bathing, preparing meals, shopping, managing finances, etc.?: No Are you currently unemployed and looking for a job?: No Are you interested in more education?: No Please select the resources that you would like help with: None Currently or been in a relationship where the following occur: No concerns reported THRIVE Score: 0 AUDIT C Alcohol Use Questionnaire (AUDIT-C) 1. How often do you have a drink containing alcohol?: Never 3. How often do you have six or more drinks on one occasion?: Never Total Score: 0 SO-7 AMB Questionnaire SO-7 Date SO - 7 assessed: 12/01/23 Feeling nervous, anxious, or on edge: 0 = Not at all Not being able to stop or control worryin = Not at all Worrying too much about different things: 0 = Not at all Trouble relaxin = Not at all Being so restless that it is hard to sit still: 0 = Not at all Becoming easily annoyed or irritable: 0 = Not at all Feeling afraid as if something awful might happen: 0 = Not at all Total SO-7 score (0-4 normal; 5-9 mild; 10-14 moderate; 15-21 severe): 0 Source: Developed by Drs. Arias Darden, Uzma Quintero, Judson Rascon and colleagues, with an educational zhane from [employer]. SO-7 Assessment Billing SO-7 Assessment Tool: SO-7 Assessment 00000 Review of Systems Const Denies headache(s) Eyes Denies loss of vision ENT Denies vertigo, Denies dizziness, Denies headache(s) and Denies sore throat Card Denies chest pain, Denies leg edema and Denies lightheadedness Resp Denies cough, Denies hemoptysis and Denies wheezing GI Denies abdominal pain, Denies melena, Denies constipation, Denies diarrhea and Denies vomiting Denies urinary frequency, Denies dysuria and Denies urinary urgency Musc Denies arthralgias, Denies joint swelling, Denies numbness and Denies tingling Neuro Denies Abnormal speech present, Denies behavioral changes, Denies vertigo, Denies dizziness, Denies headache(s), Denies loss of vision, Denies memory loss, Denies numbness and Denies tingling Psych Denies anxiety, Denies behavioral changes, Denies depression, Denies memory loss and Denies panic attacks Nayan/Lymph Denies easy bleeding and Denies easy bruising Aller/Immun Denies wheezing Physical exam (Primary Care) Vital Signs: Last Vital Signs Pulse 67 12/01/23 10:04 BP 118/80 12/01/23 10:04 Pulse Ox 98 12/01/23 10:04 Oxygen Delivery Method Room Air 12/01/23 10:04 BMI result Body Mass Index 20.5 Tobacco/Smoking Status: Tobacco use Status Tobacco use date assessed 06/01/23 12/01/23 09:55 e-Cigarette/Vaping Use Never Used 12/01/23 09:55 PHQ-9: PHQ-9 Score PHQ-9: Total score 0 12/01/23 10:11 Depression Screening Interpretation: Negative Thrive Assessment: Date of Thrive Assessment Date Thrive assessed 12/01/23 12/01/23 09:55 Currently or been in a relationship where the following occur: No concerns reported Const General: healthy appearing, no acute distress, alert and awake Nutritional Appearance: well nourished Orientation/consciousness: oriented to person, oriented to place and oriented to time HENMT Ears: TM's normal bilaterally General nose exam: Normal nasal mucous membranes and turbinates present Eyes Conjunctivae: conjunctivae normal Sclerae: sclerae normal Pupils: Equal, round and reactive pupils present Neck Neck: Yes no lymphadenopathy and Yes no JVD Thyroid: Thyroid normal Carotids: no bruits Resp Effort & Inspection: normal respiratory effort and not tachypneic Auscultation: no crackles, no rales, no rhonchi and no wheezes Cardio Rate: regular rate Rhythm: regular rhythm Heart sounds: no murmurs and normal S1 and S2 GI Palpation (GI): Soft to palpation, nontender, no hepatomegaly and no splenomegaly Auscultation: normal bowel sounds Skin General skin exam: no rashes or lesions noted and dry skin Neuro General: oriented to person, oriented to place and oriented to time Cranial nerves: Yes Equal, round and reactive pupils present Speech: No Abnormal speech present Gait exam (Neuro): Normal gait present Motor exam (neuro): no tremor noted Extrem Right upper extremity: full ROM Left upper extremity: full ROM Right lower extremity: full ROM; no edema Left lower extremity: full ROM; no edema Psych Mental Status: mental status grossly normal Speech and movement: Normal speech and movement present Affect: normal affect Attitude: cooperative Thought process: Normal thought process present Coding Level of Care Code Est Pt Level 4 (94323) Diagnoses Mixed hyperlipidemia E78.2 Hyperlipidemia type: mixed hyperlipidemia Encounter for screening mammogram for malignant neoplasm of breast Z12.31 Breast cancer screening modality: mammogram Cervical cancer screening Z12.4 Right shoulder tendonitis M77.8 Acquired hypothyroidism E03.9 Hypothyroidism type: acquired De Quervain's tenosynovitis, right M65.4 Additional Codes SO-7 Assessment Billing - SO-7 Assessment Tool: SO-7 Assessment 20910 ([id number]) Assessment & Plan Assessment & Plan (1) Hyperlipidemia: Code(s): E78.5 - Hyperlipidemia, unspecified Category: Medical Qualifiers: Hyperlipidemia type: mixed hyperlipidemia Qualified Code(s): E78.2 - Mixed hyperlipidemia Plan: Patient continues on pravastatin 40 mg. Most recent lipid panel showing excellent control over total cholesterol and LDL (2) Breast cancer screening: Code(s): Z12.39 - Encounter for other screening for malignant neoplasm of breast Category: Medical Qualifiers: Breast cancer screening modality: mammogram Qualified Code(s): Z12.31 - Encounter for screening mammogram for malignant neoplasm of breast Plan: Patient is in need of a up-to-date screening mammogram. (3) Cervical cancer screening: Code(s): Z12.4 - Encounter for screening for malignant neoplasm of cervix Category: Medical Plan: Patient is interested in an up-to-date Pap screening. (4) Right shoulder tendonitis: Code(s): M77.8 - Other enthesopathies, not elsewhere classified Category: Medical Plan: Patient seems to have right shoulder tendinosis likely secondary to her fall. Will likely benefit from formal physical therapy. (5) Hypothyroidism: Code(s): E03.9 - Hypothyroidism, unspecified Category: Medical Qualifiers: Hypothyroidism type: acquired Qualified Code(s): E03.9 - Hypothyroidism, unspecified Plan: Patient continues on levothyroxine 75 mcg daily with good effect. Most recent TSH is stable. (6) De Quervain's tenosynovitis, right: Code(s): M65.4 - Radial styloid tenosynovitis [de Quervain] Category: Medical Plan: Patient was diagnosed with de Quervain's tenosynovitis of her right wrist. She does use a stabilizing, compression brace during the daytime. 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 Referral Z12.4 - Encounter for screening for malignant neoplasm of cervix Medications: Changed From sumatriptan succinate 25 mg orally G43.909 - Migraine, unspecified, not in tractable, without status migrainosus To sumatriptan succinate 25 mg orally PRN; 90 days 27 tabs 3RF migraine headache G43.909 - Migraine, unspecified, not intractable, without status migrainosus From calcium carbonate-vitamin D3 250 mg-3.125 mcg (125 unit) (Oyster Shell Calcium-Vitamin D3) 1 tab PO BID M85.859 - Other specified disorders of bone density and structure, unspecified thigh To calcium carbonate-vitamin D3 250 mg-3.125 mcg (125 unit) (Oyster Shell Calcium-Vitamin D3) 1 tab PO BID 90 days 180 tabs 3RF M85.859 - Other specified disorders of bone density and structure, unspecified thigh Patient Instructions: Goal: LDL to remain below 100 Barriers: Adherence to physical activity and healthy eating habits
[2023-12-01 10:04] VITALS: BP 118/80; PULSE 67; O2SAT 98; BMI 20.5
== END 2023-12-01 10:36 | disposition home or self-care (01) ==
PROVIDERS: PCP Physician Assistant; Visit Provider Physician Assistant
DX: E78.2 Mixed hyperlipidemia (principal); Z12.31 Encounter for screening mammogram for malignant neoplasm of breast; Z12.4 Encounter for screening for malignant neoplasm of cervix; M77.8 Other enthesopathies, not elsewhere classified; E03.9 Hypothyroidism, unspecified; M65.4 Radial styloid tenosynovitis [de Quervain]

== ENCOUNTER → 2023-12-01 09:46 | Outpatient (BNVA) | payer OTHER, SELFPAY | PROVIDERS: PCP Physician Assistant; Visit Provider Physician Assistant | DX: E78.2 Mixed hyperlipidemia (principal); M77.8 Other enthesopathies, not elsewhere classified; E03.9 Hypothyroidism, unspecified; M65.4 Radial styloid tenosynovitis [de Quervain]; Z79.899 Other long term (current) drug therapy | CPT/HCPCS: 96127 ==

== ENCOUNTER 2024-01-03 09:47 | Outpatient (RCR) | payer OTHER, SELFPAY ==
--- NOTE | 2024-01-03 13:19 | MHC.PT.EP ---
[facility] [place] Office [place] Office [place] Office [address] Wen Hess [address] [phone] F: [phone] F: [phone] F: [phone] F: [phone] Physical Therapy Plan of Care Date of Evaluation: 01/03/24 Date of Surgery: Diagnosis: This is a 73 yo female presenting to skilled PT with a script for R shoulder tendonitis. Assessment: This is a 73 yo female presenting to skilled PT with a script for R shoulder tendonitis. Patient reporting that she has had pain now for the last few months after attempting at home yoga. She states that she pushed up from the ground during a yoga move and felt pain at her shoulder. This pain has improved since then but is still lingering with reaching OH, sleeping on her R side and with reaching behind her back. She has not been using pain management with medication or ice/heat as she does not feel like her symptoms are that bad. Pain is described as achy and is located at the anterior and posterior GHJ as well as ACJ. Her pain is constant but worse with end range motions. She is here today requesting an HEP that she can trial on her own due to the distance she has to travel to get here. Assessment reveals pain that ranges from up to a 4/10 at the worst. Patient demos decreased R shoulder and cervical ROM, strength of B shoulder's and scapular stabilizers, TTP at GHJ joint line, UT and impaired posture with forward head, anterior GHJ and rounded shoulders. Based on functional limitations, impaired QOL and pain tolerance patient is a good candidate for skilled PT 2x/wk for 4wks. Due to her commute to the clinic she will be trialing an HEP on her own at this time with the option to return as needed over the next 30 days in case she has questions or pain increases. Additionally, patient was noted to have nystagmus and symptoms with positioning on the mat, with cervical AROM. I suspect she has BPPV based on her statements and torsional nature of the nystagmus. She would benefit from a referral to a PT for assistance with her vestibular dysfunction in order to improve her QOL, prevent falls. Frequency and Duration: The patient will be seen 2x/wk for 4wks Short Term Goals: (In 2 weeks) Demo I with HEP Improve shoulder AROM by at least 20 degs all directions Demo proper scapular recruitment with appropriate shoulder strengthening exercise Intermediate Goals: (in 4 wks) Improve shoulder nonpainful AROM to almost near equal B Demo at least 2 grades improvement in MMT for shoulder Improve SPADI by at least 10 points combined Improve overall functional QOL by at least 75% Treatment Plan: Modalities to reduce pain, spasms and effusion. Manual therapy to restore motion and function. Therapeutic exercise to improve strength and flexibility. Neuromuscular re-education for posture and balance. Therapeutic activities to return to functional activities of daily living. Electronically signed by: Nicolette Aguilera PT Please sign and return to therapist. Thank you for your referral.
--- NOTE | 2024-02-06 09:34 | MHC.PT.DC ---
[facility] [place] Office [place] Office [place] Office [address] Wen Hess [address] [phone] F: [phone] F: [phone] F: [phone] F: [phone] Physical Therapy Discharge Report Diagnosis: This is a 73 yo female presenting to skilled PT with a script for R shoulder tendonitis. Date of Surgery: Date of Evaluation: 01/03/24 Date of Discharge: 02/06/24 Treatments to Date: 1 Cancellations to Date: 0 No Shows to Date: 0 Discharge Status: Achieved Goals Improved Function Independent with HEP Patient Elected to Stop Discharge Summary: This is a 73 yo female presenting to skilled PT with a script for R shoulder tendonitis. Patient reporting that she has had pain now for the last few months after attempting at home yoga. She states that she pushed up from the ground during a yoga move and felt pain at her shoulder. This pain has improved since then but is still lingering with reaching OH, sleeping on her R side and with reaching behind her back. She has not been using pain management with medication or ice/heat as she does not feel like her symptoms are that bad. Pain is described as achy and is located at the anterior and posterior GHJ as well as ACJ. Her pain is constant but worse with end range motions. She is here today requesting an HEP that she can trial on her own due to the distance she has to travel to get here. Assessment reveals pain that ranges from up to a 4/10 at the worst. Patient demos decreased R shoulder and cervical ROM, strength of B shoulder's and scapular stabilizers, TTP at GHJ joint line, UT and impaired posture with forward head, anterior GHJ and rounded shoulders. Based on functional limitations, impaired QOL and pain tolerance patient is a good candidate for skilled PT 2x/wk for 4wks. Due to her commute to the clinic she will be trialing an HEP on her own at this time with the option to return as needed over the next 30 days in case she has questions or pain increases. Chart was DC'd after 30 days Electronically signed by: Nicolette Aguilera PT Please sign and return to therapist. Thank you for your referral.
== END 2024-02-06 09:34 | disposition home or self-care (01) ==
LOC: HO.PTCHIC 09:47
PROVIDERS: PCP Physician Assistant; Visit Provider Physician Assistant
DX: M77.8 Other enthesopathies, not elsewhere classified (principal)
CPT/HCPCS: 97110; 97161; 97162

== ENCOUNTER 2024-01-16 10:18 | Outpatient (REF) | payer OTHER, SELFPAY ==
--- NOTE | ~2024-01-16 | MM_ITS ---
EXAMINATION: MM SCREENING DIGITAL BREAST TOMOSYNTHESIS, BILATERAL CLINICAL INFORMATION: Screening. Asymptomatic. COMPARISON: Mammography: Comparison is made with available priors TECHNIQUE: Digital breast mammography with tomosynthesis is performed in both the craniocaudal and mediolateral oblique views along with computer-aided detection (CAD). FINDINGS: There are scattered areas of fibroglandular density (ACR BI-RADS breast composition Category b). Focal asymmetry upper outer right breast posterior depth stable dating back to 2021 and therefore benign. There are no significant masses, abnormal calcifications, or other abnormalities. MM/MM tomosynthesis screening BI IMPRESSION: No mammographic evidence of malignancy. ASSESSMENT: BI-RADS BI-RADS 2 - Benign Findings RECOMMENDATION: Routine annual mammography screening. 1 year F/U This examination should not preclude the clinical evaluation of a suspicious palpable abnormality. This patient's information was entered into a reminder system with a target due date for their next mammogram. Electronically signed by: Courtney Segundo DO 01/25/2024 02:18 PM BLANK BONILLA
== END 2024-01-16 10:19 | disposition home or self-care (01) ==
LOC: HO.MAMMO 10:18
PROVIDERS: PCP Physician Assistant; Visit Provider Physician Assistant
DX: Z12.31 Encounter for screening mammogram for malignant neoplasm of breast (principal)
CPT/HCPCS: 77063; 77067

== ENCOUNTER → 2024-01-16 10:45 | Outpatient (BNV) | payer OTHER, SELFPAY | PROVIDERS: PCP Physician Assistant; Visit Provider Internal Medicine | DX: Z12.31 Encounter for screening mammogram for malignant neoplasm of breast (principal) | CPT/HCPCS: 77063; 77067 ==

== ENCOUNTER 2024-02-03 11:00 | Outpatient (RCR) | payer OTHER, SELFPAY ==
[2024-01-30 10:48] VITALS: BP 140/80; PULSE 68; O2SAT 94
--- NOTE | 2024-01-30 11:53 | MHC.PT.EP ---
[facility] [place] Office [place] Office [place] Office [address] Wen Hess [address] [phone] F: [phone] F: [phone] F: [phone] F: [phone] Physical Therapy Plan of Care Date of Evaluation: 01/30/24 Date of Surgery: Diagnosis: This is a 73 yo female presenting to skilled PT with a script for BPPV. Assessment: This is a 73 yo female presenting to skilled PT with a script for BPPV. Patient reporting on and off dizziness for many years. Her symptoms increase with looking up, laying on her R side, bending forward, turning fast, heights, being in the dark. Her balance has been off and she is fearful of falling. Her symptoms improve with closing her eyes. She reports fullness in the R ear but no dizziness. Her symptoms last about 30 sec to a min and are provoked by movement. Examination shows WFL oculomotor tests with saccades, (-) VBI B, and decreased cervical AROM. She was (+) for BPPV with dale-hallpike on the L and L patience maneuver which was improved s/p tx. Balance was noted to be off with ambulation and transfers throughout the clinic however was not formally assessed with testing due to time (this will be done next session). S/S consistent with L PC BPPV and she would benefit from PT 2x/wk for 4wks to address impairments, implement HEP and optimize functional mobility. Frequency and Duration: The patient will be seen 2x/wk for 4wks Short Term Goals: Detention Attendant Goals: I in HEP Negative in all 6 canals for dizziness and nystagmus Return to normal gait pattern without reports fo LOB due to dizziness Treatment Plan: Modalities to reduce pain, spasms and effusion. Manual therapy to restore motion and function. Therapeutic exercise to improve strength and flexibility. Neuromuscular re-education for posture and balance. Therapeutic activities to return to functional activities of daily living. Electronically signed by: Nicolette Aguilera PT Please sign and return to therapist. Thank you for your referral.
--- NOTE | 2024-03-05 06:47 | MHC.PT.DC ---
[facility] [place] Office [place] Office [place] Office [address] [phone] F: [phone] F: [phone] F: [phone] F: [phone] Physical Therapy Discharge Report Diagnosis: This is a 73 yo female presenting to skilled PT with a script for BPPV. Date of Surgery: Date of Evaluation: 01/30/24 Date of Discharge: 03/05/24 Treatments to Date: 2 Cancellations to Date: No Shows to Date: Discharge Status: Achieved Goals Improved Function Independent with HEP Discharge Summary: 02/02: Patient was negative in all 6 canals. She demos normal scores on her balance tests. She demo some lightheadedness with head turns during head turns and DGI so I provided her with VOR exercises, balance exercise ideas and ed in regards to returning to our clinic if symptoms return. Chart will be closed after 30 days. Electronically signed by: Nicolette Aguilera, PT Please sign and return to therapist. Thank you for your referral.
== END 2024-03-05 06:47 | disposition home or self-care (01) ==
LOC: HO.PTCHIC 11:00
PROVIDERS: PCP Physician Assistant; Visit Provider Physician Assistant
DX: H81.10 Benign paroxysmal vertigo, unspecified ear (principal)
CPT/HCPCS: 95992; 97110; 97112; 97162

== ENCOUNTER 2024-03-01 10:30 | Outpatient (REF) | payer OTHER, SELFPAY ==
--- OUTSIDE RECORDS SUMMARY | 2024-03-01 11:48 | XMS_ITS ---
Author Organization [facility], Address [address] [facility] [place] [address] Care Team Providers Care Curator Herbarium Name Role Phone Katherin Proctor Unavailable [phone] ALLERGIES, ADVERSE REACTIONS, ALERTS Substance Code Code System Type Reaction Severity Status Start Date End Date Norvasc 87779 RxNorm Drug allergy () 1 Norvasc 59474 RxNorm Drug allergy () 0 MEDICATIONS Medication Code Code System Start Date Stop Date Route Dosage Directions Fill Instructions Breo Ellipta 4442095 RxNorm 019 inhalation Zithromax Z-Jean 719124 RxNorm 06/10/19 22 2 losartan RxNorm 2 alendronate RxNorm 08/18/19 22 levothyroxine RxNorm 2 fexofenadine RxNorm 10/12/19 20 pravastatin RxNorm 2 sumatriptan RxNorm 08/18/19 Excedrin Migraine RxNorm 2 topiramate RxNorm 06/10/19 Celebrex 642771 RxNorm 08/18/19 22 2021 oral 1 prednisone 904955 RxNorm 06/10/19 22 2021 oral 1 Calcium 500 RxNorm 2 fluticasone prop, micro (bulk) RxNorm 10/12/19 20 Trelegy Ellipta 0 RxNorm inhalation PROBLEMS Problem Name Code Code System Start Date End Date Stat us Asthma 636406614 [facility] 06/09/2021 Active Hyperlipidemia 83680410 [facility] 06/09/2021 Activ e Hypothyroidism 38998619 [facility] 06/09/2021 Activ e Hypertension 83293821 [facility] 06/09/2021 Active Unspecified fracture of right patella, initial encounter for closed fracture (822.0, S82.001A) 37873962 [facility] 10/12/2019 I nactive Unspecified fall, initial encounter (W19.xxxA) [facility] 10/18/2019 Inactiv e Bronchitis, acute (J20.9) 64501244 [facility] 06/09/2021 Inactive Contact with and (suspected) exposure to COVID-19 (Z20.822) [facility] 06/11/2021 Inactive Cough, unspecified (R05.9) [facility] 06/11/2021 Inactive Migraines 44979896 [facility] 08/17/2021 Active osteopenia 614355512 [facility] 08/17/2021 Active Unspecified osteoarthritis, unspecified site 643859358 [facility] 08/17/2021 Active Hematuria, unspecified 79588209 [facility] 11/30/2022 Active Contusion of right hand, initial encounter 249375744 [facility] 10/22/2023 Active Sprain of metacarpophalangeal joint of right thumb, initial encounter 96248591 [facility] 10/22/2023 Active Sprain of unspecified ligament of right ankle, initial encounter 47030668714657467 [facility] 10/22/2023 Activ e ENCOUNTERS Encounter Diagnosis Code Code System Date Stat us Hematuria, unspecified 09802271 [facility] 11/30/2022 Ac tive IMMUNIZATIONS * None VITAL SIGNS Code Code System Vitals Name Date Value and Un its 8462-4 [facility] Blood Pressure-Diastolic 11/30/2022 70 mmHg 8480-6 [facility] Blood Pressure-Systolic 11/30/2022 1 16 mmHg 8867-4 [facility] Heart Rate 11/30/2022 66 /min 9279-1 [facility] Respiratory Rate 11/30/2022 18 /min 8310-5 [facility] Body Temperature 11/30/2022 97.4 F 10246-2 [facility] Oxygen Saturation 11/30/2022 99 % SOCIAL HISTORY * None PROCEDURES * None RESULTS Test Code Code System Description Result Value Date Ref erence Range [facility] Glucose Negative 11/30/2022 [facility] Bilirubin Negative 11/30/2022 [facility] Ketone Negative 11/30/2022 [facility] Specific [place] 1.44316 11/30/2022 [facility] Blood 3.81592 11/30/2022 [facility] pH 7.48157 11/30/2022 [facility] Protein Negative 11/30/2022 [facility] Urobilinogen 0.14346 E.U./dL 11/30/2022 [facility] Nitrite Negative 11/30/2022 [facility] Leukocytes 2.74967 11/30/2022 [facility] Color Yellow 11/30/2022 [facility] Clarity [...] Code System Date Urinalysis, automated, without microscopy 62584 CPT 11/30/2022 CULTURE, URINE, ROUTINE 39998;79303 CPT 11/21 GOALS * None HEALTH CONCERNS * No Health Concerns FUNCTIONAL AND COGNITIVE STATUS * None CONSULTATION NOTES * None DISCHARGE SUMMARY NOTES * None HISTORY AND PHYSICAL NOTES * Reason for visit - Illness IMAGING NOTES * None LABORATORY REPORT NARRATIVE NOTES * None PATHOLOGY REPORT NARRATIVE NOTES * None PROGRESS NOTES * None
--- OUTSIDE RECORDS SUMMARY | 2024-03-01 11:48 | XMS_ITS ---
Author Organization [facility], Address [address] [facility] [place] [address] Care Team Providers Care Brake Repairer Air Name Role Phone Judy Nuno Unavailable [phone] ALLERGIES, ADVERSE REACTIONS, ALERTS Substance Code Code System Type Reaction Severity Status Start Date End Date Norvasc 72053 RxNorm Drug allergy () 0 Norvasc 89755 RxNorm Drug allergy () 1 MEDICATIONS Medication Code Code System Start Date Stop Date Route Dosage Directions Fill Instructions Breo Ellipta 2552039 RxNorm 019 inhalation Zithromax Z-Jean 506675 RxNorm 06/10/19 22 2 losartan RxNorm 2 alendronate RxNorm 08/18/19 22 levothyroxine RxNorm 2 fexofenadine RxNorm 10/12/19 20 pravastatin RxNorm 2 sumatriptan RxNorm 08/18/19 Excedrin Migraine RxNorm 2 topiramate RxNorm 06/10/19 22 Celebrex 018334 RxNorm 08/18/19 22 2021 oral 1 prednisone 836669 RxNorm 06/10/19 22 2021 oral 1 Calcium 500 RxNorm 2 fluticasone prop, micro (bulk) RxNorm 10/12/19 20 Trelegy Ellipta 0 RxNorm inhalation PROBLEMS Problem Name Code Code System Start Date End Date Stat Asthma 307681731 [facility] 06/09/2021 Active Hyperlipidemia 68429397 [facility] 06/09/2021 Activ e Hypothyroidism 62717579 [facility] 06/09/2021 Activ e Hypertension 52741676 [facility] 06/09/2021 Active Unspecified fracture of right patella, initial encounter for closed fracture (822.0, S82.001A) 41761249 [facility] 10/12/2019 I nactive Unspecified fall, initial encounter (W19.xxxA) [facility] 10/18/2019 Inactiv e Bronchitis, acute (J20.9) 28081257 [facility] 06/09/2021 Inactive Contact with and (suspected) exposure to COVID-19 (Z20.822) [facility] 06/11/2021 Inactive Cough, unspecified (R05.9) [facility] 06/11/2021 Inactive Migraines 75080516 [facility] 08/17/2021 Active osteopenia 894189231 [facility] 08/17/2021 Active Unspecified osteoarthritis, unspecified site 232036725 [facility] 08/17/2021 Active Hematuria, unspecified 89923371 [facility] 11/30/2022 Active Contusion of right hand, initial encounter 641579362 [facility] 10/22/2023 Active Sprain of metacarpophalangeal joint of right thumb, initial encounter 49054500 [facility] 10/22/2023 Active Sprain of unspecified ligament of right ankle, initial encounter 53362019069855210 [facility] 10/22/2023 Activ e ENCOUNTERS Encounter Diagnosis Code Code System Date Stat us Contusion of right hand, ini tial encounter 334365895 [facility] 10/22/2023 Active Sprain of metacarpophalangea l joint of right thumb, initial encounter 90214974 [facility] 10/22/2023 A ctive Sprain of unspecified ligame nt of right ankle, initial encounter 22463120621347660 [facility] 10/22/2023 Active IMMUNIZATIONS * None VITAL SIGNS Code Code System Vitals Name Date Value and Un its 8462-4 [facility] Blood Pressure-Diastolic 10/22/2023 75 mmHg 8480-6 [facility] Blood Pressure-Systolic 10/22/2023 1 46 mmHg 8867-4 [facility] Heart Rate 10/22/2023 60 /min 9279-1 [facility] Respiratory Rate 10/22/2023 18 /min 8310-5 [facility] Body Temperature 10/22/2023 97.3 F 61241-7 [facility] Oxygen Saturation 10/22/2023 98 % SOCIAL [...] comfort while you are ankle is healing.See aegis operations specialist if you do not have resolution [...] healing for 7 to 10 daysSee your aegis operations specialist if you do not have resolution [...] are identified. IMPRESSION: [place] type A fracture /[place] LABORATORY REPORT NARRATIVE NOTES * None PATHOLOGY REPORT NARRATIVE NOTES * None PROGRESS NOTES * None
[2024-03-02 09:52] LABS: HPV 16,18/45 See PAP report
== END 2024-03-01 10:31 | disposition home or self-care (01) ==
LOC: HO.LNP 10:30
PROVIDERS: PCP Physician Assistant; Visit Provider Obstetrics & Gynecology
DX: Z01.419 Encounter for gynecological examination (general) (routine) without abnormal findings (principal); Z11.51 Encounter for screening for human papillomavirus (HPV)
CPT/HCPCS: 87626; 88175

== ENCOUNTER 2024-03-01 10:30 | Outpatient (AMB) | payer OTHER, SELFPAY ==
--- NOTE | 2024-03-01 10:38 | A.OFFVIS_ITS ---
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 Informatics Consultant: Informatics Consultant Present (Leticia) Accompanied by: Self / Same As Patient Allergies SKYLAR Inhibitors Adverse Reaction (Mild, Verified 03/01/24 10:41) Cough amlodipine [From Norvasc] Adverse Reaction (Mild, Verified 03/01/24 10:41) Rash HPI Comments Details: Presenting for annual exam. No complaints. Last Pap/HPV was many 2 ago, no history of abnormal Pap smears according to the patient, no records available Last Mammogram was BI-RADS 2 in 01/14 Last Colonoscopy was many years ago. preop colonoscopy visit was done in 01/14, the patient is in the process of scheduling her colonoscopy Last DEXA scan was in 06/13 [facility] Medical History Mild intermittent asthma, uncomplicated Personal history of colonic polyps Lesion of throat SI joint arthritis Chronic osteoarthritis Osteoarthritis of sacroiliac joint Osteoarthritis of right hip Nabothian cyst Lumbar spondylosis SHEBA positive Colon polyps Closed fracture of right ankle B12 deficiency Asthma Migraine Hyperlipidemia Hypertension Hypothyroidism Allergic rhinitis Osteopenia Surgical History (Updated 03/01/24 @ 11:00 by Ranjith Guerin MD) History of hysterectomy, supracervical H/O colonoscopy History of cataract surgery S/P left knee arthroscopy History of hip surgery Family History Father Bladder cancer Brother Bladder cancer Social History Housing: House e-Cigarette/Vaping Use: Never Used service: No Current occupational status: retired Current occupation: rt handed Cognitive needs: No Hearing needs: No Vision needs: Yes Female Reproductive History Menstrual Total pregnancies: 2 Full term: 2 Date of Mammogram: 01/16/24 (BI RAD 2) Review of Systems Const All systems reviewed & are unremarkable except as noted in HPI and below Card Reports as per HPI and Reports no additional complaints Resp Reports as per HPI and Reports no additional complaints GI Reports as per HPI and Reports no additional complaints Reports as per HPI Physical Exam Vital Signs: Last Vital Signs BP 118/80 03/01/24 10:44 BMI result Body Mass Index 20.8 Const General: cooperative, healthy appearing and comfortable General: Yes bladder normal to palpation External Female Exam: No lesion Speculum Exam - Vagina: normal appearance of the vagina, normal vaginal discharge and not erythematous Speculum Exam - Cervix: normal appearance of the cervix and Cervical os open Bimanual exam- vagina & uterus: bladder normal to palpation and uterus absent Bimanual Exam- Adnexa, other: Other (No masses detected) OB/external & speculum: Cervical os open Assessment & Plan Assessment & Plan (1) Well woman exam: Code(s): Z01.419 - Encounter for gynecological examination (general) (routine) without abnormal findings Category: Medical Plan: Co testing done since there is no records available of previous Pap smears Counseled the patient about the recommended dietary allowance of 1200 mg of Calcium & 800 IU of vitamin D. Instructions given the patient to schedule next screen Mammogram in 01/15. Will order DEXA scan for 06/15 . The patient was instructed to perform monthly self-breast exams and to schedule a 2 week DEXA scan follow-up appointment and an annual exam in a year; All questions answered and the patient verbalized understanding. Orders: Orders XR DEXA axial skeleton 3 Months Z78.0 - Asymptomatic menopausal state Coding Level of Care Code New Pt Prev Care >65yr (51917) Diagnoses Well woman exam Z01.419
[2024-03-01 10:44] VITALS: BP 118/80; BMI 20.8
--- OUTSIDE RECORDS SUMMARY | 2024-03-01 11:10 | XMS_ITS ---
Author Organization [facility], Address [address] [facility] [place] [address] Care Team Providers Care Pie Bakery Laborer Name Role Phone Katherin Proctor Unavailable [phone] ALLERGIES, ADVERSE REACTIONS, ALERTS Substance Code Code System Type Reaction Severity Status Start Date End Date Norvasc 59102 RxNorm Drug allergy () 0 Norvasc 07766 RxNorm Drug allergy () 1 MEDICATIONS Medication Code Code System Start Date Stop Date Route Dosage Directions Fill Instructions Breo Ellipta 8360070 RxNorm 019 inhalation Zithromax Z-Jean 281314 RxNorm 06/10/19 22 2 losartan RxNorm 2 alendronate RxNorm 08/18/19 22 levothyroxine RxNorm 2 fexofenadine RxNorm 10/12/19 20 pravastatin RxNorm 2 sumatriptan RxNorm 08/18/19 Excedrin Migraine RxNorm 2 topiramate RxNorm 06/10/19 Celebrex 744494 RxNorm 08/18/19 22 2021 oral 1 prednisone 112768 RxNorm 06/10/19 22 2021 oral 1 Calcium 500 RxNorm 2 fluticasone prop, micro (bulk) RxNorm 10/12/19 20 Trelegy Ellipta 0 RxNorm inhalation PROBLEMS Problem Name Code Code System Start Date End Date Stat us Asthma 009337455 [facility] 06/09/2021 Active Hyperlipidemia 20373193 [facility] 06/09/2021 Activ e Hypothyroidism 73733576 [facility] 06/09/2021 Activ e Hypertension 51211889 [facility] 06/09/2021 Active Unspecified fracture of right patella, initial encounter for closed fracture (822.0, S82.001A) 33828635 [facility] 10/12/2019 I nactive Unspecified fall, initial encounter (W19.xxxA) [facility] 10/18/2019 Inactiv e Bronchitis, acute (J20.9) 96165543 [facility] 06/09/2021 Inactive Contact with and (suspected) exposure to COVID-19 (Z20.822) [facility] 06/11/2021 Inactive Cough, unspecified (R05.9) [facility] 06/11/2021 Inactive Migraines 14521858 [facility] 08/17/2021 Active osteopenia 793630496 [facility] 08/17/2021 Active Unspecified osteoarthritis, unspecified site 749000798 [facility] 08/17/2021 Active Hematuria, unspecified 46930988 [facility] 11/30/2022 Active Contusion of right hand, initial encounter 042876055 [facility] 10/22/2023 Active Sprain of metacarpophalangeal joint of right thumb, initial encounter 19983300 [facility] 10/22/2023 Active Sprain of unspecified ligament of right ankle, initial encounter 13813075914508854 [facility] 10/22/2023 Activ e ENCOUNTERS Encounter Diagnosis Code Code System Date Stat us Hematuria, unspecified 94122250 [facility] 11/30/2022 Ac tive IMMUNIZATIONS * None VITAL SIGNS Code Code System Vitals Name Date Value and Un its 8462-4 [facility] Blood Pressure-Diastolic 11/30/2022 70 mmHg 8480-6 [facility] Blood Pressure-Systolic 11/30/2022 1 16 mmHg 8867-4 [facility] Heart Rate 11/30/2022 66 /min 9279-1 [facility] Respiratory Rate 11/30/2022 18 /min 8310-5 [facility] Body Temperature 11/30/2022 97.4 F 00949-5 [facility] Oxygen Saturation 11/30/2022 99 % SOCIAL HISTORY * None PROCEDURES * None RESULTS Test Code Code System Description Result Value Date Ref erence Range [facility] Glucose Negative 11/30/2022 [facility] Bilirubin Negative 11/30/2022 [facility] Ketone Negative 11/30/2022 [facility] Specific [place] 1.62932 11/30/2022 [facility] Blood 3.97492 11/30/2022 [facility] pH 7.58729 11/30/2022 [facility] Protein Negative 11/30/2022 [facility] Urobilinogen 0.44420 E.U./dL 11/30/2022 [facility] Nitrite Negative 11/30/2022 [facility] Leukocytes 2.29025 11/30/2022 [facility] Color Yellow 11/30/2022 [facility] Clarity Clear 11/30/2022 630-4 [facility] CULTURE, URINE, ROUTINE SEE NOTE 11/30/2022 MEDICAL EQUIPMENT * Patient has no history of implantable devices ASSESSMENT Assessment We will contact you in about 3 days with the results of the urine culture.As discussed given your strong family history of bladder cancer and the blood in your urine you MUST arrange follow-up with a urologist.If you develop any burning with urination, peeing more frequently, urgency, or fever please be reevaluated immediately TREATMENT PLAN Type Description Date APPOINTMENT If not feeling mary r in 3 day(s), please see your primary care physician. If you do not have a primary care physician, please return to this clinic. 11/30/2022 Labs Tests Test Name Code Code System Date Urinalysis, automated, without microscopy 55855 CPT 11/30/2022 CULTURE, URINE, ROUTINE 69391;57382 CPT 11/21 GOALS * None HEALTH CONCERNS * No Health Concerns FUNCTIONAL AND COGNITIVE STATUS * None CONSULTATION NOTES * None DISCHARGE SUMMARY NOTES * None HISTORY AND PHYSICAL NOTES * Reason for visit - Illness IMAGING NOTES * None LABORATORY REPORT NARRATIVE NOTES * None PATHOLOGY REPORT NARRATIVE NOTES * None PROGRESS NOTES * None
--- OUTSIDE RECORDS SUMMARY | 2024-03-01 11:10 | XMS_ITS ---
Author Organization [facility], Address [address] [facility] [place] [address] Care Team Providers Care Credit Card Analyst Name Role Phone Judy Nuno Unavailable [phone] ALLERGIES, ADVERSE REACTIONS, ALERTS Substance Code Code System Type Reaction Severity Status Start Date End Date Norvasc 02859 RxNorm Drug allergy () 0 Norvasc 75917 RxNorm Drug allergy () 1 MEDICATIONS Medication Code Code System Start Date Stop Date Route Dosage Directions Fill Instructions Breo Ellipta 1033833 RxNorm 019 inhalation Zithromax Z-Jean 040525 RxNorm 06/10/19 22 2 losartan RxNorm 2 alendronate RxNorm 08/18/19 22 levothyroxine RxNorm 2 fexofenadine RxNorm 10/12/19 20 pravastatin RxNorm 2 sumatriptan RxNorm 08/18/19 Excedrin Migraine RxNorm 2 topiramate RxNorm 06/10/19 22 Celebrex 362912 RxNorm 08/18/19 22 2021 oral 1 prednisone 435022 RxNorm 06/10/19 22 2021 oral 1 Calcium 500 RxNorm 2 fluticasone prop, micro (bulk) RxNorm 10/12/19 20 Trelegy Ellipta 0 RxNorm inhalation PROBLEMS Problem Name Code Code System Start Date End Date Stat Asthma 726219841 [facility] 06/09/2021 Active Hyperlipidemia 07832370 [facility] 06/09/2021 Activ e Hypothyroidism 19642728 [facility] 06/09/2021 Activ e Hypertension 79032617 [facility] 06/09/2021 Active Unspecified fracture of right patella, initial encounter for closed fracture (822.0, S82.001A) 49481365 [facility] 10/12/2019 I nactive Unspecified fall, initial encounter (W19.xxxA) [facility] 10/18/2019 Inactiv e Bronchitis, acute (J20.9) 63099834 [facility] 06/09/2021 Inactive Contact with and (suspected) exposure to COVID-19 (Z20.822) [facility] 06/11/2021 Inactive Cough, unspecified (R05.9) [facility] 06/11/2021 Inactive Migraines 33715420 [facility] 08/17/2021 Active osteopenia 357776272 [facility] 08/17/2021 Active Unspecified osteoarthritis, unspecified site 833970902 [facility] 08/17/2021 Active Hematuria, unspecified 97584646 [facility] 11/30/2022 Active Contusion of right hand, initial encounter 858293720 [facility] 10/22/2023 Active Sprain of metacarpophalangeal joint of right thumb, initial encounter 39946876 [facility] 10/22/2023 Active Sprain of unspecified ligament of right ankle, initial encounter 68625788495506128 [facility] 10/22/2023 Activ e ENCOUNTERS Encounter Diagnosis Code Code System Date Stat us Contusion of right hand, ini tial encounter 697784674 [facility] 10/22/2023 Active Sprain of metacarpophalangea l joint of right thumb, initial encounter 44803881 [facility] 10/22/2023 A ctive Sprain of unspecified ligame nt of right ankle, initial encounter 15286106197640446 [facility] 10/22/2023 Active IMMUNIZATIONS * None VITAL SIGNS Code Code System Vitals Name Date Value and Un its 8462-4 [facility] Blood Pressure-Diastolic 10/22/2023 75 mmHg 8480-6 [facility] Blood Pressure-Systolic 10/22/2023 1 46 mmHg 8867-4 [facility] Heart Rate 10/22/2023 60 /min 9279-1 [facility] Respiratory Rate 10/22/2023 18 /min 8310-5 [facility] Body Temperature 10/22/2023 97.3 F 91004-3 [facility] Oxygen Saturation 10/22/2023 98 % SOCIAL HISTORY * None PROCEDURES * None MEDICAL EQUIPMENT * Patient has no history of implantable devices ASSESSMENT * None TREATMENT PLAN Type Description Date ORDERS For your ankle sprai n Y our x-ray does not show any new bony abnormalities but a radiologist will review the films and we will call you if there is any change in this report.Use the boot you have from your previous ankle fracture for up to 7 to 10 days for support and comfort while you are ankle is healing.See intelligence specialist if you do not have resolution of your symptoms in 7 to 10 days, sooner if it is worse or if we call you with confirmation of a fracture by the radiologistFor your thumb sprain Y our x-ray does not show any new bony abnormalities. A radiologist will review the films and we will call you if there is a change in this report.Use the splint for support and comfort while your thumb is healing for 7 to 10 daysSee your intelligence specialist if you do not have resolution of your symptoms in 7 to 10 days or sooner if worse should we call you with confirmation of her fracture by the radiologist 10/22/2023 APPOINTMENT If not feeling mary r in 3 day(s), please see your primary care physician. If you do not have a primary care physician, please return to this clinic. 10/22/2023 Lab Tests None GOALS * None HEALTH CONCERNS * No Health Concerns FUNCTIONAL AND COGNITIVE STATUS * None CONSULTATION NOTES * None DISCHARGE SUMMARY NOTES * None HISTORY AND PHYSICAL NOTES * Reason for visit - Injury IMAGING NOTES * /[place] History: Pain-Right Ankle: The patient presents with a chief complaint of constant (but worse at times) pain of the right wrist and right ankle since Oct 21, 2023. It has the following qualities: aching and shooting. The patient describes the severity as 7/10, with 10 being the worst imaginable. The problem is made worse by movement. Context - Initial History: The patient reports it was the result of an injury that occurred on 10/21/2023, which was not work related. This is not the result of a motor vehicle accident. Pt reports falling after getting up off the couch. The patient also reports swelling as an abnormal symptom related to the complaint.RIGHT - FINGER #1 (THUMB), 2 OR MORE VIEWS FINDINGS:Soft tissue swelling is appreciable. There is concern of a subtle lucency about the first distal tuft without displacement cortical fragmentsThere are no advanced degenerative changes areevident.No radiodense foreign bodies are identified. IMPRESSION:Questionable fracture of the distaltuft * History: Pain-Right Ankle: The patient presents with a chief complaint of constant (but worse at times) pain of the right wrist and right ankle since Oct 21, 2023. It has the following qualities: aching and shooting. The patient describes the severity as 7/10, with 10 being the worst imaginable. The problem is made worse by movement. Context - Initial History: The patient reports it was the result of an injury that occurred on 10/21/2023, which was not work related. This is not the result of a motor vehicle accident. Pt reports falling after getting up off the couch. The patient also reports swelling as an abnormal symptom related to the complaint.Ankle FINDINGS: Soft tissue swelling is appreciable about the lateral malleolus. There is an obliquely oriented fracture involving the distal fibula below the level of the tibiotalar joint. Tibiotalar joint is congruent There are no advanced degenerative changes are evident. No radiodense foreign bodies are identified. IMPRESSION: West type A fracture /[place] LABORATORY REPORT NARRATIVE NOTES * None PATHOLOGY REPORT NARRATIVE NOTES * None PROGRESS NOTES * None
== END 2024-03-01 11:06 | disposition home or self-care (01) ==
PROVIDERS: PCP Physician Assistant; Visit Provider Obstetrics & Gynecology
DX: Z01.419 Encounter for gynecological examination (general) (routine) without abnormal findings (principal)
CPT/HCPCS: 99387; 99459

== ENCOUNTER 2024-03-07 10:27 | Outpatient (AMB) | payer OTHER, SELFPAY ==
--- NOTE | 2024-03-07 10:47 | A.OFFVIS_ITS ---
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 Pv Required: No Accompanied by: Self / Same As Patient Allergies SKYLAR Inhibitors Adverse Reaction (Mild, Verified 03/07/24 10:53) Cough amlodipine [From [facility]] Adverse Reaction (Mild, Verified 03/07/24 10:53) Rash Medication List - Last Reconciled 03/07/24 by Alvaro Butts PA-C albuterol sulfate 90 mcg/actuation (Ventolin HFA) 2 puffs inhalation Q6H 90 days alendronate 35 mg PO QWEEK 90 days aspirin-acetaminophen (buffer) 250-250 mg tabs PO PRN calcium carbonate-vitamin D3 250 mg-3.125 mcg (125 unit) (Oyster Shell Calcium- Vitamin D3) 1 tab PO BID 90 days fluticasone propionate 50 mcg/actuation 1 spray intranasal DAILY rgltskrskex-jsfishwxi-guwcnnpi 200-62.5-25 mcg (Trelegy Ellipta) 1 inh inhalation DAILY 90 days levothyroxine (Levoxyl) 75 mcg PO DAILY 90 days losartan 50 mg PO DAILY 90 days meloxicam 15 mg PO DAILY PRN 14 days polyethylene glycol 3350 (Miralax) 17 grams PO DAILY pravastatin 40 mg PO BEDTIME 90 days sod sulf-pot chloride-mag sulf 1.479-0.188- 0.225 gram (Sutab) PO PER PKG DIR for colonoscopy prep sumatriptan succinate 25 mg orally PRN; 90 days topiramate XR 25 mg PO BID 90 days HPI AWV G0438 HPI Details Patient is a 73-year-old female here today for] an annual wellness visit Patient has a past medical history significant for moderate persistent asthma, migraine disorder, osteopenia, hypothyroidism, hypertension and hyperlipidemia. Today we discussed patient's in his life planning and [place] of care. We also did review patient's comprehensive care plan that was scanned into patient's documents. Vaccines: Up-to-date with COVID, flu, shingles. Needs pneumonia vaccine .. mammo: Done 12/2023- BIRADS 1 Bone density: done at [facility] in 2022- Osteopenia -continues on half dose of Fosamax though most recent DEXA shows no indication to treat. She will stop Fosamax. Colorectal cancer screening: scheduled for colonoscopy in the Spring 2024 HPI Comments History of Present Illness Details reviewed past medical history- yes reviewed surgical / hospitalization history- yes reviewed current medications- yes reviewed family history- yes home safety throw rugs? grab bars? raised toilet seat? working smoke detectors? activities of daily living difficulty bathing or showering? difficulty dressing? difficulty using the toilet? difficulty getting in and out of bed? difficulty walking? receives help from other person's with any of the above tasks? instrumental activities of daily living uses telephone - gets to place out of walking distance- go shopping for groceries- repairs own meals- does own minor home maintenance- does own laundry- does own housework- manages own money- currently takes medication- end of life planning discussed advanced directives- yes advanced directives on file? discussed wishes expressed in advanced directives. fall risk have you had any falls with injuries in the past year? have you had 2 or more falls in the past year? fall risk assessment: [facility] Medical History (Updated 03/07/24 @ 11:14 by Alvaro Butts PA-C) Mild intermittent asthma, uncomplicated Personal history of colonic polyps Lesion of throat SI joint arthritis Chronic osteoarthritis Osteoarthritis of sacroiliac joint Osteoarthritis of right hip Nabothian cyst Lumbar spondylosis SHEBA positive Colon polyps Closed fracture of right ankle B12 deficiency Asthma Migraine Hyperlipidemia Hypertension Hypothyroidism Allergic rhinitis Osteopenia Surgical History History of hysterectomy, supracervical H/O colonoscopy History of cataract surgery S/P left knee arthroscopy History of hip surgery Family History Father Bladder cancer Brother Bladder cancer Social History Housing: House e-Cigarette/Vaping Use: Never Used service: No Current occupational status: retired Current occupation: rt handed Cognitive needs: No Hearing needs: No Vision needs: Yes Questionnaire Medicare Wellness Checkup [age] What gender do you identify with?: female During the past 4 weeks, how much have you been bothered by emotional problems such as feeling anxious, depressed, irritable, sad or downhearted, and blue?: not at all During the past 4 weeks, has your physical & emotional health limited your social activities with family, friends, neighbors, or groups?: not at all During the past 4 weeks, how much bodily pain have you generally had?: moderate pain (dental work) During the past 4 weeks, was someone available to help you if you needed & wanted help?: yes, as much as I wanted During the past 4 weeks, what was the hardest physical activity you could do for at least 2 minutes?: moderate Can you get to places out of walking distance without help? (For eg., can you travel alone on buses, taxis or drive your car?): Yes Can you go shopping for groceries or clothes without someone's help?: Yes Can you prepare your own meals?: Yes Can you do your housework without help?: Yes Because of any health problems, do you need the help of another person with your personal care needs such as eating, bathing, dressing or getting around the house?: No Can you handle your own money without help?: Yes During the past 4 weeks, how would you rate your health in general?: very good During the past 4 weeks how have things been going for you?: pretty well Are you having difficulties driving your car?: no Do you always fasten your seat belt when you are in a car?: yes, usually During past 4 weeks, have you been bothered by the following: never: Sexual problems? and Problems using the telephone? and sometimes: Falling or dizzy when standing up, Trouble eating well?, Teeth or denture problems? and Tiredness or fatigue? Have you fallen 2 or more times in the past year?: Yes Are you afraid of falling?: Yes During the past 4 weeks, how many drinks of wine, beer, or other alcoholic beverages did you have?: no alcohol at all Do you exercise for about 20 minutes 3 or more times a week?: yes, all the time Have you been given information to help with the following?: yes: Hazards in your house that might hurt you? and yes: Keeping track of your medications? How often do you have trouble taking medicines the way you have been told to take them?: I always take medicine as prescribed How confident are you that you can control & manage most of your health problems?: very confident What is your race?: or origin or descent Mini Mental State Exam (MMSE) Orientation What is the (year) (season) (date) (day) (month)?: year Where are we (state) (county) (town or city) (hospital) (floor)?: town or city Attention & Calculation (CHOOSE ONE) Ask pt to begin with 100 & count backward by 7. Stop after 5 repeats. If pt cannot ask them to spell the word WORLD backward.: 86 Spell WORLD backwards (DLROW): 5 letters Score Score: 8 Activity of Daily Living Bathing - sponge bath, tub bath or shower: receives no assistance (gets in/out by self, if usual bathing means Dressing - getting clothes from closets & drawers, including inner/outer garments & fasteners.: gets clothes & gets completely dressed without help Toileting - going to the 'toilet room' for urine/bowel elimination & cleaning self/arranging clothes: goes to toilet room, cleans self, arranges clothes without help Transfer: moves in & out of bed and chair without help (may use support object) Continence: controls urination/bowel movements completely by self Feeding: feeds self without help Total Score: 0 Information obtained from: patient Using telephone: independent Traveling: independent Shopping: independent Preparing meals: independent Housework: independent Taking medicine: independent Managing money: independent PHQ-9 Over the last 2 weeks, how often have you been bothered by any of the following problems? 1. Little interest or pleasure in doing things: not at all 2. Feeling down, depressed, or hopeless: not at all 3. Trouble falling or staying asleep, or sleeping too much: not at all 4. Feeling tired or having little energy: several days 5. Poor appetite or overeating: several days 6. Feeling bad about yourself - or that you are a failure or have let yourself or your family down: not at all 7. Trouble concentrating on things, such as reading the newspaper or watching television: not at all 8. Moving or speaking so slowly that other people could have noticed. Or the opposite - being so fidgety or restless that you have been moving around a lot more than usual: not at all 9. Thoughts that you would be better off or of hurting yourself in some way: not at all Total score: 2 Depression Screening Interpretation: Negative Depression Screening Done: Yes 36365 - PHQ-9 Billing: Yes Source: Developed by Drs. Arias Darden, Uzma Quintero, Judson Rascon and colleagues, with an educational zhane from [employer]. Physical Exam Vital Signs: Last Vital Signs Temp 97.1 F 03/07/24 10:48 Pulse 76 03/07/24 10:48 BP 136/80 03/07/24 10:48 Pulse Ox 98 03/07/24 10:48 Oxygen Delivery Method Room Air 03/07/24 10:48 BMI result Body Mass Index 20.6 HEENT Other: hearing screening whisper test- passed Eyes Other: vision screening- 20 20 OS OD OU Other: urinary incontinence? no Neuro Other: balance Romberg- normal tandem walk test- able walk-in turned test-able rise from sit to stand- within 2 seconds Assessment & Plan Assessment & Plan (1) Annual wellness visit: Code(s): Z00.00 - Encounter for general adult medical examination without abnormal findings Plan: As per HPI Orders: Orders TSH reflex Free T4 03/07/24 E03.9 - Hypothyroidism, unspecified Lipid Panel 03/07/24 E78.2 - Mixed hyperlipidemia Comprehensive [place]. Panel Fast 03/07/24 I10 - Essential (primary) hypertension Microalbumin, Random (w Creat) 03/07/24 I10 - Essential (primary) hypertension Medications: Discontinued alendronate Discontinued Reason: Doctor's Order 35 mg PO QWEEK 90 days 13 tabs 2RF M85.80 - Other specified disorders of bone density and structure, unspecified site Quality Reporting (2019) Depression/Bipolar (159/160/161/177) PHQ-9: Total score: 2 Coding Level of Care Code Medicare First (G0438) Diagnoses Annual wellness visit Z00.00 CPT Codes Advance Care Planning - Time spent: 1-15 minutes, not on file ([id number]) Additional Codes PHQ-9 - 54048 - PHQ-9 Billing: Yes ([id number]) Advance Care Planning Advance Care Planning discussion: Exists, not on file Date of discussion: 03/07/24 Who was present: Patient Forms completed: TRIXIE Time spent: 1-15 minutes, not on file Actual minutes spent: 4
[2024-03-07 10:48] VITALS: BP 136/80; PULSE 76; TEMP 36.2; O2SAT 98; BMI 20.6
--- OUTSIDE RECORDS SUMMARY | 2024-03-07 11:56 | XMS_ITS ---
Author Organization [facility], Address [address] [facility] [place] [address] Care Team Providers Care Splitting Machine Tender Name Role Phone Judy Nuno Unavailable [phone] ALLERGIES, ADVERSE REACTIONS, ALERTS Substance Code Code System Type Reaction Severity Status Start Date End Date Norvasc 75640 RxNorm Drug allergy () 0 Norvasc 34580 RxNorm Drug allergy () 1 MEDICATIONS Medication Code Code System Start Date Stop Date Route Dosage Directions Fill Instructions Breo Ellipta [id number] RxNorm 019 inhalation Zithromax Z-Jean 484733 RxNorm 06/10/19 22 2 losartan RxNorm 2 alendronate RxNorm 08/18/19 22 levothyroxine RxNorm 2 fexofenadine RxNorm 10/12/19 20 pravastatin RxNorm 2 sumatriptan RxNorm 08/18/19 Excedrin Migraine RxNorm 2 topiramate RxNorm 06/10/19 Celebrex 491351 RxNorm 08/18/19 22 2021 oral 1 prednisone 057143 RxNorm 06/10/19 22 2021 oral 1 Calcium 500 RxNorm 2 fluticasone prop, micro (bulk) RxNorm 10/12/19 20 Trelegy Ellipta 0 RxNorm inhalation PROBLEMS Problem Name Code Code System Start Date End Date Stat Asthma 260490052 [facility] 06/09/2021 Active Hyperlipidemia 56475844 [facility] 06/09/2021 Activ e Hypothyroidism 89359245 [facility] 06/09/2021 Activ e Hypertension 73408982 [facility] 06/09/2021 Active Unspecified fracture of right patella, initial encounter for closed fracture (822.0, S82.001A) 85958167 [facility] 10/12/2019 I nactive Unspecified fall, initial encounter (W19.xxxA) [facility] 10/18/2019 Inactiv e Bronchitis, acute (J20.9) 14647928 [facility] 06/09/2021 Inactive Contact with and (suspected) exposure to COVID-19 (Z20.822) [facility] 06/11/2021 Inactive Cough, unspecified (R05.9) [facility] 06/11/2021 Inactive Migraines 35016014 [facility] 08/17/2021 Active osteopenia 456176576 [facility] 08/17/2021 Active Unspecified osteoarthritis, unspecified site 802175292 [facility] 08/17/2021 Active Hematuria, unspecified 63751350 [facility] 11/30/2022 Active Contusion of right hand, initial encounter 741480859 [facility] 10/22/2023 Active Sprain of metacarpophalangeal joint of right thumb, initial encounter 43977544 [facility] 10/22/2023 Active Sprain of unspecified ligament of right ankle, initial encounter 45753986184547945 [facility] 10/22/2023 Activ e ENCOUNTERS Encounter Diagnosis Code Code System Date Stat us Contusion of right hand, ini tial encounter 217778333 [facility] 10/22/2023 Active Sprain of metacarpophalangea l joint of right thumb, initial encounter 75925895 [facility] 10/22/2023 A ctive Sprain of unspecified ligame nt of right ankle, initial encounter 91922101868294026 [facility] 10/22/2023 Active IMMUNIZATIONS * None VITAL SIGNS Code Code System Vitals Name Date Value and Un its 8462-4 [facility] Blood Pressure-Diastolic 10/22/2023 75 mmHg 8480-6 [facility] Blood Pressure-Systolic 10/22/2023 1 46 mmHg 8867-4 [facility] Heart Rate 10/22/2023 60 /min 9279-1 [facility] Respiratory Rate 10/22/2023 18 /min 8310-5 [facility] Body Temperature 10/22/2023 97.3 F 93447-1 [facility] Oxygen Saturation 10/22/2023 98 % SOCIAL [...] comfort while you are ankle is healing.See correctional treatment specialist if you do not have resolution [...] healing for 7 to 10 daysSee your correctional treatment specialist if you do not have resolution [...] are identified. IMPRESSION: [place] type A fracture /[place] LABORATORY REPORT NARRATIVE NOTES * None PATHOLOGY REPORT NARRATIVE NOTES * None PROGRESS NOTES * None
--- OUTSIDE RECORDS SUMMARY | 2024-03-07 11:56 | XMS_ITS ---
Author Organization [facility], Address [address] [facility] [place] [address] Care Team Providers Care Analytical Scientist Name Role Phone Katherin Proctor Unavailable [phone] ALLERGIES, ADVERSE REACTIONS, ALERTS Substance Code Code System Type Reaction Severity Status Start Date End Date Norvasc 43022 RxNorm Drug allergy () 0 Norvasc 26185 RxNorm Drug allergy () 1 MEDICATIONS Medication Code Code System Start Date Stop Date Route Dosage Directions Fill Instructions Breo Ellipta [id number] RxNorm 019 inhalation Zithromax Z-Jean 593122 RxNorm 06/10/19 22 2 losartan RxNorm 2 alendronate RxNorm 08/18/19 22 levothyroxine RxNorm 2 fexofenadine RxNorm 10/12/19 20 pravastatin RxNorm 2 sumatriptan RxNorm 08/18/19 Excedrin Migraine RxNorm 2 topiramate RxNorm 06/10/19 Celebrex 135045 RxNorm 08/18/19 22 2021 oral 1 prednisone 136358 RxNorm 06/10/19 22 2021 oral 1 Calcium 500 RxNorm 2 fluticasone prop, micro (bulk) RxNorm 10/12/19 20 Trelegy Ellipta 0 RxNorm inhalation PROBLEMS Problem Name Code Code System Start Date End Date Stat us Asthma 334304151 [facility] 06/09/2021 Active Hyperlipidemia 97225052 [facility] 06/09/2021 Activ e Hypothyroidism 86751239 [facility] 06/09/2021 Activ e Hypertension 00869934 [facility] 06/09/2021 Active Unspecified fracture of right patella, initial encounter for closed fracture (822.0, S82.001A) 90875225 [facility] 10/12/2019 I nactive Unspecified fall, initial encounter (W19.xxxA) [facility] 10/18/2019 Inactiv e Bronchitis, acute (J20.9) 30887065 [facility] 06/09/2021 Inactive Contact with and (suspected) exposure to COVID-19 (Z20.822) [facility] 06/11/2021 Inactive Cough, unspecified (R05.9) [facility] 06/11/2021 Inactive Migraines 98220768 [facility] 08/17/2021 Active osteopenia 926442763 [facility] 08/17/2021 Active Unspecified osteoarthritis, unspecified site 913879321 [facility] 08/17/2021 Active Hematuria, unspecified 21682224 [facility] 11/30/2022 Active Contusion of right hand, initial encounter 553748368 [facility] 10/22/2023 Active Sprain of metacarpophalangeal joint of right thumb, initial encounter 38671477 [facility] 10/22/2023 Active Sprain of unspecified ligament of right ankle, initial encounter 46169485921250944 [facility] 10/22/2023 Activ e ENCOUNTERS Encounter Diagnosis Code Code System Date Stat us Hematuria, unspecified 20098871 [facility] 11/30/2022 Ac tive IMMUNIZATIONS * None VITAL SIGNS Code Code System Vitals Name Date Value and Un its 8462-4 [facility] Blood Pressure-Diastolic 11/30/2022 70 mmHg 8480-6 [facility] Blood Pressure-Systolic 11/30/2022 1 16 mmHg 8867-4 [facility] Heart Rate 11/30/2022 66 /min 9279-1 [facility] Respiratory Rate 11/30/2022 18 /min 8310-5 [facility] Body Temperature 11/30/2022 97.4 F 47810-8 [facility] Oxygen Saturation 11/30/2022 99 % SOCIAL HISTORY * None PROCEDURES * None RESULTS Test Code Code System Description Result Value Date Ref erence Range [facility] Glucose Negative 11/30/2022 [facility] Bilirubin Negative 11/30/2022 [facility] Ketone Negative 11/30/2022 [facility] Specific [place] 1.52809 11/30/2022 [facility] Blood 3.48453 11/30/2022 [facility] pH 7.85022 11/30/2022 [facility] Protein Negative 11/30/2022 [facility] Urobilinogen 0.68340 E.U./dL 11/30/2022 [facility] Nitrite Negative 11/30/2022 [facility] Leukocytes 2.76323 11/30/2022 [facility] Color Yellow 11/30/2022 [facility] Clarity [...] Code System Date Urinalysis, automated, without microscopy 27030 CPT 11/30/2022 CULTURE, URINE, ROUTINE 39598;54709 CPT 11/21 GOALS * None HEALTH CONCERNS * No Health Concerns FUNCTIONAL AND COGNITIVE STATUS * None CONSULTATION NOTES * None DISCHARGE SUMMARY NOTES * None HISTORY AND PHYSICAL NOTES * Reason for visit - Illness IMAGING NOTES * None LABORATORY REPORT NARRATIVE NOTES * None PATHOLOGY REPORT NARRATIVE NOTES * None PROGRESS NOTES * None
--- OUTSIDE RECORDS SUMMARY | 2024-03-07 11:57 | XMS_ITS ---
Author Organization [facility], Address [address] [facility] [place] [address] Care Team Providers Care Health Education Teacher Name Role Phone Judy Nuno Unavailable [phone] ALLERGIES, ADVERSE REACTIONS, ALERTS Substance Code Code System Type Reaction Severity Status Start Date End Date Norvasc 62360 RxNorm Drug allergy () 1 Norvasc 77767 RxNorm Drug allergy () 0 MEDICATIONS Medication Code Code System Start Date Stop Date Route Dosage Directions Fill Instructions Breo Ellipta 8249052 RxNorm 019 inhalation Zithromax Z-Jean 326162 RxNorm 06/10/19 22 2 losartan RxNorm 2 alendronate RxNorm 08/18/19 22 levothyroxine RxNorm 2 fexofenadine RxNorm 10/12/19 20 pravastatin RxNorm 2 sumatriptan RxNorm 08/18/19 Excedrin Migraine RxNorm 2 topiramate RxNorm 06/10/19 Celebrex 838365 RxNorm 08/18/19 22 2021 oral 1 prednisone 168570 RxNorm 06/10/19 22 2021 oral 1 Calcium 500 RxNorm 2 fluticasone prop, micro (bulk) RxNorm 10/12/19 20 Trelegy Ellipta 0 RxNorm inhalation PROBLEMS Problem Name Code Code System Start Date End Date Stat Asthma 720781987 [facility] 06/09/2021 Active Hyperlipidemia 79982796 [facility] 06/09/2021 Activ e Hypothyroidism 47399245 [facility] 06/09/2021 Activ e Hypertension 34751504 [facility] 06/09/2021 Active Unspecified fracture of right patella, initial encounter for closed fracture (822.0, S82.001A) 12801895 [facility] 10/12/2019 I nactive Unspecified fall, initial encounter (W19.xxxA) [facility] 10/18/2019 Inactiv e Bronchitis, acute (J20.9) 63024463 [facility] 06/09/2021 Inactive Contact with and (suspected) exposure to COVID-19 (Z20.822) [facility] 06/11/2021 Inactive Cough, unspecified (R05.9) [facility] 06/11/2021 Inactive Migraines 43409584 [facility] 08/17/2021 Active osteopenia 399765343 [facility] 08/17/2021 Active Unspecified osteoarthritis, unspecified site 186502085 [facility] 08/17/2021 Active Hematuria, unspecified 15874560 [facility] 11/30/2022 Active Contusion of right hand, initial encounter 575708241 [facility] 10/22/2023 Active Sprain of metacarpophalangeal joint of right thumb, initial encounter 99868564 [facility] 10/22/2023 Active Sprain of unspecified ligament of right ankle, initial encounter 76887062828015031 [facility] 10/22/2023 Activ e ENCOUNTERS Encounter Diagnosis Code Code System Date Stat us Contusion of right hand, ini tial encounter 999410078 [facility] 10/22/2023 Active Sprain of metacarpophalangea l joint of right thumb, initial encounter 52490342 [facility] 10/22/2023 A ctive Sprain of unspecified ligame nt of right ankle, initial encounter 98193555991008839 [facility] 10/22/2023 Active IMMUNIZATIONS * None VITAL SIGNS Code Code System Vitals Name Date Value and Un its 8462-4 [facility] Blood Pressure-Diastolic 10/22/2023 75 mmHg 8480-6 [facility] Blood Pressure-Systolic 10/22/2023 1 46 mmHg 8867-4 [facility] Heart Rate 10/22/2023 60 /min 9279-1 [facility] Respiratory Rate 10/22/2023 18 /min 8310-5 [facility] Body Temperature 10/22/2023 97.3 F 35813-7 [facility] Oxygen Saturation 10/22/2023 98 % SOCIAL [...] comfort while you are ankle is healing.See orthopedics teacher if you do not have resolution of [...] healing for 7 to 10 daysSee your orthopedics teacher if you do not have resolution of [...] are identified. IMPRESSION: [place] type A fracture /[place] LABORATORY REPORT NARRATIVE NOTES * None PATHOLOGY REPORT NARRATIVE NOTES * None PROGRESS NOTES * None
--- OUTSIDE RECORDS SUMMARY | 2024-03-07 11:57 | XMS_ITS ---
Author Organization [facility], Address [address] [facility] [place] [address] Care Team Providers Care Quality Assurance Supervisor Body Name Role Phone Katherin Proctor Unavailable [phone] ALLERGIES, ADVERSE REACTIONS, ALERTS Substance Code Code System Type Reaction Severity Status Start Date End Date Norvasc 45197 RxNorm Drug allergy () 0 Norvasc 75077 RxNorm Drug allergy () 1 MEDICATIONS Medication Code Code System Start Date Stop Date Route Dosage Directions Fill Instructions Breo Ellipta 1823674 RxNorm 019 inhalation Zithromax Z-Jaen 357239 RxNorm 06/10/19 22 2 losartan RxNorm 2 alendronate RxNorm 08/18/19 22 levothyroxine RxNorm 2 fexofenadine RxNorm 10/12/19 20 pravastatin RxNorm 2 sumatriptan RxNorm 08/18/19 Excedrin Migraine RxNorm 2 topiramate RxNorm 06/10/19 Celebrex 037441 RxNorm 08/18/19 22 2021 oral 1 prednisone 842682 RxNorm 06/10/19 22 2021 oral 1 Calcium 500 RxNorm 2 fluticasone prop, micro (bulk) RxNorm 10/12/19 20 Trelegy Ellipta 0 RxNorm inhalation PROBLEMS Problem Name Code Code System Start Date End Date Stat us Asthma 778730782 [facility] 06/09/2021 Active Hyperlipidemia 29555052 [facility] 06/09/2021 Activ e Hypothyroidism 45654858 [facility] 06/09/2021 Activ e Hypertension 16485680 [facility] 06/09/2021 Active Unspecified fracture of right patella, initial encounter for closed fracture (822.0, S82.001A) 72665281 [facility] 10/12/2019 I nactive Unspecified fall, initial encounter (W19.xxxA) [facility] 10/18/2019 Inactiv e Bronchitis, acute (J20.9) 39612708 [facility] 06/09/2021 Inactive Contact with and (suspected) exposure to COVID-19 (Z20.822) [facility] 06/11/2021 Inactive Cough, unspecified (R05.9) [facility] 06/11/2021 Inactive Migraines 93569561 [facility] 08/17/2021 Active osteopenia 496436598 [facility] 08/17/2021 Active Unspecified osteoarthritis, unspecified site 124560061 [facility] 08/17/2021 Active Hematuria, unspecified 88435910 [facility] 11/30/2022 Active Contusion of right hand, initial encounter 301988106 [facility] 10/22/2023 Active Sprain of metacarpophalangeal joint of right thumb, initial encounter 32977197 [facility] 10/22/2023 Active Sprain of unspecified ligament of right ankle, initial encounter 59043767536925850 [facility] 10/22/2023 Activ e ENCOUNTERS Encounter Diagnosis Code Code System Date Stat us Hematuria, unspecified 37679351 [facility] 11/30/2022 Ac tive IMMUNIZATIONS * None VITAL SIGNS Code Code System Vitals Name Date Value and Un its 8462-4 [facility] Blood Pressure-Diastolic 11/30/2022 70 mmHg 8480-6 [facility] Blood Pressure-Systolic 11/30/2022 1 16 mmHg 8867-4 [facility] Heart Rate 11/30/2022 66 /min 9279-1 [facility] Respiratory Rate 11/30/2022 18 /min 8310-5 [facility] Body Temperature 11/30/2022 97.4 F 20041-4 [facility] Oxygen Saturation 11/30/2022 99 % SOCIAL HISTORY * None PROCEDURES * None RESULTS Test Code Code System Description Result Value Date Ref erence Range [facility] Glucose Negative 11/30/2022 [facility] Bilirubin Negative 11/30/2022 [facility] Ketone Negative 11/30/2022 [facility] Specific Randolph 1.22141 11/30/2022 [facility] Blood 3.20598 11/30/2022 [facility] pH 7.74959 11/30/2022 [facility] Protein Negative 11/30/2022 [facility] Urobilinogen 0.11530 E.U./dL 11/30/2022 [facility] Nitrite Negative 11/30/2022 [facility] Leukocytes 2.49225 11/30/2022 [facility] Color Yellow 11/30/2022 [facility] Clarity [...] Code System Date Urinalysis, automated, without microscopy 93126 CPT 11/30/2022 CULTURE, URINE, ROUTINE 44251;93740 CPT 11/21 GOALS * None HEALTH CONCERNS * No Health Concerns FUNCTIONAL AND COGNITIVE STATUS * None CONSULTATION NOTES * None DISCHARGE SUMMARY NOTES * None HISTORY AND PHYSICAL NOTES * Reason for visit - Illness IMAGING NOTES * None LABORATORY REPORT NARRATIVE NOTES * None PATHOLOGY REPORT NARRATIVE NOTES * None PROGRESS NOTES * None
== END 2024-03-07 11:25 | disposition home or self-care (01) ==
PROVIDERS: PCP Physician Assistant; Visit Provider Physician Assistant
DX: Z00.00 Encounter for general adult medical examination without abnormal findings (principal)

== ENCOUNTER → 2024-03-07 10:27 | Outpatient (BNVA) | payer OTHER, SELFPAY | PROVIDERS: PCP Physician Assistant; Visit Provider Physician Assistant | DX: Z00.00 Encounter for general adult medical examination without abnormal findings (principal); J45.40 Moderate persistent asthma, uncomplicated; G43.909 Migraine, unspecified, not intractable, without status migrainosus; M85.80 Other specified disorders of bone density and structure, unspecified site; E03.9 Hypothyroidism, unspecified; I10 Essential (primary) hypertension; E78.5 Hyperlipidemia, unspecified | CPT/HCPCS: 96127 ==

== ENCOUNTER 2024-04-24 11:01 | Day surgery (SDC) | payer OTHER, SELFPAY ==
--- OUTSIDE RECORDS SUMMARY | 2024-04-24 10:36 | XMS_ITS | Patient Health Record ---
Author Organization [facility] Address [address] [place], [place] [id number] Care Team Providers Care Dulser Name Role Phone Molly SERNA, Lee Primary Care Provider Michael Leonard Unavailable [phone] Josh Power Unavailable Unavailable Allergies Allergen (clinical drug ingredient) Drug/Non Drug Allergy documented on EMR Reaction Allergy Type Onset Date Status amlodipine Norvasc rash Drug Allergy Active angiotensin-converting enzyme inhibitor (FN) SKYLAR Inhibitors Unknown Drug Allergy Acti ve Reason For Referral No Information Medications Medication SIG (Take, Route, Frequency, Duration) Notes Start Date End Date Status Fluticasone Propionate 50 MCG/ACT 1 spray in each nostril Nasally Once a day for 90 days Active Alendronate Sodium 35 MG 1 tablet 30 min utes before the first food, beverage or medicine of the day with plain water Orally for 30 day(s) Active Trelegy Ellipta 200-62.5-25 MCG/ACT 1 puff Inhalation Once a day for 30 days Active Naproxen Active Losartan Potassium 50 MG 1 tablet Orally Once a day for 30 day(s) Active Levoxyl 75 MCG 1 tablet in the morning on an empty stomach Orally Once a day Active Topiramate 25 MG 1 tablet Orally Once a day for 30 day(s) twice a day Active Calcium + D 500-1000-40 MG-UNT-MCG as directed Orally Active Albuterol Sulfate HFA 108 (90 Base) MCG/ACT 1 puff as needed Inhalation every 4 hrs Active Super B Complex Acti ve prevastin 40mg one capsual once a day Active SUMAtriptan Succinate 25 MG 1 tablet at least 2 hours between doses as needed Orally Twice a day as needed Active Social History Tobacco Use: Social History Observation Description Date Details (start date - stop date) Never Smoker NA - NA Tobacco Question Answer Notes Are you a: never smoker Additional Findings: Tobacco Non-User Does not u se moist powdered tobacco Problems Problem Type SNOMED Code ICD Code Onset Dates Problem Status W/U Status Risk Notes Problem Allergic rhinitis (35533451) Allergic rhinitis (J30.9) Active confirmed Problem Moderate persistent asthma (694576139) Moderate persistent asthma (J45.40) Active confirmed Vital Signs Heart Rate 65 /min 10/28/2023 Respiratory Rate 14 /min 10/28/2023 Blood pressure diastolic 74 mm Hg 10/28/2023 Height 66 in 10/28/2023 Blood pressure systolic 120 mm Hg 10/28/2023 Weight 130 lbs 10/28/2023 BMI 20.98 kg/m2 10/28/2023 Encounters Encounter Location Date Provider Diagnosis [facility] [address] [place] [address] 04/27/2023 Michael Gant Moderate persistent asthma J45.40 and Allergic rhinitis J30.9 [facility] [address] [place] [address] 10/28/2023 Michael Gant Moderate persistent asthma J45.40 and Allergic rhinitis J30.9 Assessments Encounter Date Diagnosis (ICD Code) Assessment Notes Treatment Notes Treatment Clinical Notes Section Notes 10/28/2023 Moderate persistent asthma (ICD-10 - J45.40) Will require pneumonia vaccination if has not received yet also influenza vaccination annually. Also had RSV vaccine 04/27/2023 Moderate persistent asthma (ICD-10 - J45.40) Will require pneumonia vaccination if has not received yet also influenza vaccination annually. Also had RSV vaccine 04/27/2023 Allergic rhinitis (ICD-10 - J30.9) 10/28/2023 Allergic rhinitis (ICD-10 - J30.9) Plan Of Treatment Pending Test Test Name Order Date Chest X-Ray PA and Lateral 08/04/2021 Next Appt Details Provider Name:Michael Gant, 05/09/2024 10:30:00 AM, [address] [place], [address], Insurance Providers Payer Name Payer Address Payer Phone Subscriber Number Group Number Insured Name Patient Relationship to Insured Coverage Start Date Coverage End Date [facility] [address] [place] [phone] [id number] FEROZ SIMONS Self - patient is the insured Medical (General) History Medical History History ICD Code Hyperlipidemia Hypothyroidism Back pain Migraine headache G43.909 Allergic rhinitis J30.9 Moderate persistent asthma J45.40 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
--- OUTSIDE RECORDS SUMMARY | 2024-04-24 10:36 | XMS_ITS ---
Author Organization [facility] Address [address] [place] [address] [address] [place], [place] [phone] Care Team Providers Care Dependency Counselor Name Role Phone Lee Barnes MD Primary Care Provider Sara jennifer Michael Gant Unavailable [phone] Josh Power Unavailable Unavailable REASON FOR VISIT New Refill Request Medications Medication SIG (Take, Route, Frequency, Duration) Notes Start Date End Date Status Trelegy Ellipta 200-62.5-25 MCG/ACT 1 puff Inhalation Once a day for 90 days Active Encounters Encounter Location Date Provider Diagnosis [facility] [address] [id number] 12/20/2022 Michael Gant Moderate persistent asthma J45.40 Assessments Encounter Date Diagnosis (ICD Code) Assessment Notes Treatment Notes Treatment Clinical Notes Section Notes 12/20/2022 Moderate persistent asthma (ICD-10 - J45.40) Plan Of Treatment Medication Medication Name Sig Start Date Stop Date Notes Trelegy Ellipta 200-62.5-25 MCG/ACT 1 puff Inhalation Once a day for 90 days Next Appt Details Provider Name:Michael Gant, 05/09/2024 10:30:00 AM, [address] [place], [address], Progress Notes * FEROZ SIMONSDOB:1950 (72 yo F)Acc No.[id number]:12/20/2022 Patient:?FEROZ SIMONS :1950???Age:72 Y???Sex:Female Address:[address] [place] [address], [place], [address] * Refills? Refill Trelegy Ellipta Aerosol Powder Breath Activated, 200-62.5-25 MCG/ACT, Inhalation, 3, 1 puff, Once a day, 90 days, Refills=5 * true * Date:? Generated for Radha malave/Sonali/Bellitting on:?04/24/2024 10:36 AM EST
--- OUTSIDE RECORDS SUMMARY | 2024-04-24 10:36 | XMS_ITS | Clinical Summary ---
Author Organization [facility] Address [address] [place] [address] Care Team Providers Care Concrete Technician Name Role Phone Horace Stovall MD Primary Care Provider Allergies Active Allergy Reactions Criticality Noted Date Comments Reuben Inhibitors Cough,Other (see comments) 11/20 cough Amlodipine Cough,Rash Low 11/20/2016 rash Medications albuterol (PROAIR HFA,VENTOLIN HFA) 90 mcg inhaler Inhale by mouth. Active aspirin-acetaminoph en-caffeine (Excedrin Extra Strength) 250-250-65 mg per tablet Take 1 tablet by mouth 3 times daily as needed. 3 Active calcium carbonate-vitamin D3 500 mg-10 mcg (400 unit) chewable tablet Chew and swallow 1 tablet by mouth 2 times daily. 1 Active fexofenadine (SABINO) 180 mg tablet Take 1 tablet by mouth daily. Active fluticasone-umeclid inium-vilanterol (Trelegy Ellipta) 200-62.5-25 mcg blister with device Inhale by mouth. 3 Active b complex vitamins tablet Take by mouth. Active levothyroxine (LevoxyL) 75 mcg tabletIndications:H yperparathyroidism (HCC) Take 1 tablet (75 mcg total) by mouth daily. 90 tablet 3 3 Active polyethylene glycol 3350 (Miralax) powder Take 17 g by mouth daily. 3 Active fluticasone propionate (FLONASE) 50 mcg/actuation nasal spray 3 Active pravastatin (PRAVACHOL) 40 mg tabletIndications:H yperlipidemia, unspecified hyperlipidemia type Take 1 tablet (40 mg total) by mouth once a day. 90 tablet 3 3 Active calcium carbonate-vitamin D3 (Oyster Shell Calcium-Vit D3) 500 mg-400 units tabletIndications:A ge-related osteoporosis without current pathological fracture Take 1 tablet by mouth 2 times a day. 180 tablet 3 3 Active SUMAtriptan (IMITREX) 25 mg tablet Take 1 tablet (25 mg total) by mouth once as needed for migraine for up to 90 doses. 27 tablet 2 3 Active alendronate (FOSAMAX) 35 mg tabletIndications:A ge-related osteoporosis without current pathological fracture Take one tablet by mouth once weekly. 12 tablet 3 3 Active losartan (COZAAR) 50 mg tablet TAKE 1 TABLET DAILY DIRECTED 90 tablet 3 4 Active topiramate (TOPAMAX) 25 mg tabletIndications:M igraine without aura and without status migrainosus, not intractable TAKE 1 TABLET TWICE A DAY 180 tablet 3 4 Active Active Problems Problem Noted Date Diagnosed Date Hypothyroidism (acquired) 12/29/2022 Hematuria 12/29/2022 Allergic rhinitis 11/23/2022 Asthma 11/23/2022 At risk for osteoporosis 11/23/2022 B12 deficiency 11/23/2022 Cataract 11/23/2022 Cervical radiculopathy 11/23/2022 Chest pain, exertional 11/23/2022 Colon polyps 11/23/2022 Assessment & Plan (11/23/2022 2:03 PM EDT): The patient recently had colonoscopy. Recommendation for repeat colonoscopy in 1 year. Dizziness, nonspecific 11/23/2022 Elevated antinuclear antibody (SHEBA) level 2022 Positive SHEBA (antinuclear antibody) 11/23/2022 Essential hypertension 11/23/2022 Hyperlipidemia 11/23/2022 Hyperparathyroidism 11/23/2022 Lesion of throat 11/23/2022 Migraine without aura and wi thout status migrainosus, not intractable 11/23/2022 Nabothian cyst 11/23/2022 Neck pain 11/23/2022 Osteopenia of neck of left femur 11/23/2022 Personal history of colonic polyps 11/23/2022 Primary osteoarthritis of both hands 11/23/2022 Osteoarthritis of sacroiliac joint 11/23/2022 SI joint arthritis 11/23/2022 Spondylosis of lumbar spine 11/23/2022 Stage 3 chronic kidney disease 11/23/2022 Closed fracture of distal phalanx of right thumb 10/30/2021 Low back pain, unspecified 08/17/2021 Resolved Problems Problem Noted Date Diagnosed Date Resolved Date Closed fracture of right ankle 11/23/2022 11/23/2022 Dog bite, hand 11/23/2022 11/23/2022 Hypertension 11/23/2022 11/23/2022 Hypertrophied cervix 11/23/2022 023 Tick bite of right thigh 11/23/202204/2022 Bitten by dog, initial encounter 10/30/2021 11/23/2022 Contusion of right thumb with damage to nail 11/23/2022 Encounters Date Type Department Care Team Description 02/08/[address] Endocrinology Department [address] [place] [id number] Dereje Nunez MD Age-related osteoporosis without current pathological fracture from Last 3 Months Immunizations Immunization Administration Dates Next Due Covid-19, Moderna, mRNA, Mon ovalent, PF Pediatric 50 mcg/0.5mL dose (for ages 6 to 11 years old) 12/01/2021 Covid-19, Moderna, mRNA, Mon ovalent, PF, 50 mcg/0.5 mL dose (for ages 6 to 11 yrs old or booster dose 18Y+) 12/01/2021 Influenza Whole 11/01/2018 Influenza, High Dose Seasona l, Preservative Free 10/31/2017,11/20/2016 Influenza, High Dose Seasona l, Quadrivalent PF 12/01/2021,11/01/2020,11/02/2019 Influenza, Trivalent, MDV, Injectable ,11/02/2019,10/31/2017,11/20 Influenza, Unspecified 12/01/2021 Pneumococcal Conjugate Vacci ne, 13 Valent 05/16/2015 Pneumococcal Conjugate Vacci ne, 7 Valent 05/16/2015 Pneumococcal Polysaccharide Vaccine, 23 Valent 04/19/2017,08/22/2006 Td(Adult) Unspecified Formulation 12/13/2016 Zoster Vaccine Recombinant 01/02/2020,11/02/2019 Zoster Vaccine, Live 11/02/2019,05/16/2011 Family History Medical History Relation Name Comments Bladder Cancer Brother Hypertension Brother Myocardial Infarction Brother Bladder Cancer Father Hypertension Father Peripheral vascular disease Father Stroke Father Diabetes type II Mother Hypertension Mother Rheum arthritis Mother Breast cancer Neg Hx Colon cancer Neg Hx Ovarian cancer Neg Hx Uterine cancer Neg Hx Relation Name Status Comments Brother Father Mother Social History Tobacco Use Types Packs/Day Years Used Date Smoking Tobacco: Never Passive Smoke Exposure: Past Smokeless Tobacco: Never Tobacco Cessation:Counseling Given: Not Answered Comments No Sex and Gender Information Value Date Recorded Sex Assigned at Female 11/23/2022 12:26 PM EDT Legal Sex Female 10:05 AM EDT Gender Identity Female 11/23/2022 12:26 PM EDT Sexual Orientation Choose not to disclose 2022 12:26 PM EDT Last Filed Vital Signs Vital Sign Reading Time Taken Comments Blood Pressure 118/78 12/29/2022 8:43 AM EST Pulse 70 11/23/2022 1:41 PM EDT Temperature - - Respiratory Rate 16 12/29/2022 8:43 AM EST Oxygen Saturation - - Inhaled Oxygen Concentration - - Weight 57.2 kg (126 lb) 12/29/2022 8:43 AM EST Height 165.1 cm (5' 5 ) 12/29/2022 8:43 AM EST Body Mass Index 20.97 12/29/2022 8:43 AM EST Plan of Treatment Health Maintenance Due Date Last Done Comments Cologuard 1950 Colon Cancer Screening 1950 Colonoscopy 1950 FOBT / Fit Test 1950 Sigmoidoscopy 1950 DTaP,Tdap,and Td Vaccines (1 - Tdap) 12/14/2016 12/13/2016 Basic Metabolic Panel 05/11/2023 05/10/2022 , 07/24/2021, 07/24/2021, Additional history exists COVID-19 Vaccine ( season) 2023 12/01/2022, 12/01/2021, 12/01/2021, Additional history exists Influenza Vaccine (#1) 2023 , 12/01/2022, 12/01/2021, Additional history exists Alcohol/Substance Use Screening 02/22/2024 Depression Screening and Follow-Up 02/22/2024 11/23/2022 Health Care Proxy Review 02/22/2024 Social Drivers of Health Annual Screening 02/22/2024 Mammogram 12/27/2024 12/27/2022, 09/2021, 10/20/2020 Pneumococcal Vaccine: 50+ Years Completed 04/19/2017, 05/16/2015, 08/22/2006 Zoster Vaccines Completed 01/02/2020, 10/22, 11/02/2019, Additional history exists Hepatitis C Screening Completed 05/15/2020 Osteoporosis Screening Completed 05/26/2022, 2020 RSV Vaccine (60+ years old and patients) Completed 12/08/2022 Hepatitis B Vaccines Aged Out No long er eligible based on patient's age to complete this topic Procedures * Due to [place] [employer] law, this organization might not be sharing negative HIV tests. Procedure Name Priority Date/Time Associated Diagnosis Comments LYRIC BILATERAL SCREENING DIGITAL MAMMOGRAM WITH SPIKE Routine 12/27/2022 8:30 AM EST Polyp of colon, unspecified part of colon, unspecified type DEXA BONE DENSITY AXIAL Routine 05/26/2022 8:53 AM EDT COMPREHENSIVE METABOLIC PANEL Routine 05/10/2022 9:30 AM EDT HEPATITIS C ANTIBODY W/REFLEX TO HCV RNA, QUANTITATIVE PCR Routine 05/15/2020 9:11 AM EDT from Last 3 Months or Most Recently Relevant to Health Maintenance Results * Due to [place] [employer] law, this organization might not be sharing negative HIV tests. * LYRIC Bilateral Screening Digital Mammogram With Spike (12/27/2022 8:30 AM EST) Anatomical Region Laterality Modality Breast Bilateral Mammography Narrative 01/01/2023 5:05 PM EST EXAMINATION LYRIC Bilateral Screening Digital Mammogram With Spike. INDICATION Karen Simons is a 72 y.o. female and is seen for: LYRIC Bilateral Screening Digital Mammogram With Spike. R2 CAD was used in the interpretation of this study. COMPARISON Compared to: 10/29/2021 LYRIC Screening Digital Mammogram and 10/20/2020 LYRIC Screening Digital Mammogram Bilateral Breast Findings: The breasts have scattered areas of fibroglandular density. No significant masses, calcifications or other abnormalities are seen. IMPRESSION No mammographic findings of malignancy. BI-RADS?? ATLAS category (overall): 1 - Negative MANAGEMENT Routine Screening Mammogram in 1 Year is recommended for bilateral. ??The patient was entered into a reminder system with a target date for their next mammogram. If this radiology report contains a blank impression section, it is an incomplete radiology report. ??Please contact the interpreting radiologist or applicable radiology division as soon as possible to obtain the completed interpretation. us Wil Wallace MD IMG BI PROCEDURES Final Res ult * DEXA Bone Density Axial (05/26/2022 8:53 AM EDT) Anatomical Region Laterality Modality Hip, L-spine Bone Densitometr y 05/26/2022 11:2 1 AM EDT Narrative 05/26/2022 11:24 AM EDT ? DEPARTMENT OF RADIOLOGY Patient: KAREN SIMONS ?Unit #: [id number] Ordering MD: DEREJE NUNEZ MD ? : 1950 Procedure: DEXA Bone Density Axial ?Age: 71 Location: XRAY ?Exam Date: 05/26/22 Status: REG CLI ? Room/Bed: Primary MD: YONATAN MAC DO ?Patient ?Order: DEXABONE Additional Copy: ??DEREJE NUNEZ MD, YASIR DO - EXAM: ??BONE MINERAL DENSITY PROCEDURE: The bone mineral density (BMD) of the spine and proximal left femur was determined using an external X-ray source (TYMR). SITE: ??[facility] COMPARISON: Prior BMD of 2020 FINDINGS: L1-L4: ??BMD 0.98gm/cm2 ?? T-Score -0.6 ?Z-score: 1.7 ?? prior BMD(T) 1.03 (-0.2) Femoral neck: ??BMD 0.68gm/cm2 ?? T-Score -1.5 ?Z-score: 0.4 Total hip: ?? BMD 0.82 gm/cm2 ?? T-Score -1 ?Z-score: 0.6 prior BMD(T) 0.88 (-0.6) The World Health Organization (WHO) defines osteoporosis (as studied in post-menopausal women) as a T value of (-)2.5 or less at any site. ??Osteopenia is defined by a T value between (-)1.1 and (-)2.4. 10-year Fracture Risk (FRAX) Major osteoporotic fracture 9.5% Hip fracture 1.7% In general, it is recommended that patients receive approximately 1000 mg of calcium daily, either from dairy products or supplements (including multiple vitamin). Patients should consider supplementing with vitamin D. Vitamin D recommendations should be discussed with Health Care Provider and measurement of vitamin D levels should be considered. Careful weight-bearing exercise is also useful in maintaining bone mass and to help protect against falls. Based on our precision data, a change of 1.5% in the spine or total hip is significant in the individual patient. IMPRESSION: This patient has osteopenia. Compared to the prior study, there has been a decrease in the BMD/T value of the spine and hip. Thank you for the courtesy of this referral. ELECTRONICALLY SIGNED BY: ??Arias Miranda MD 05/26/2022 11:22 AM ?? [id number] Procedure Note Arias Miranda MD - 11/17/2022 DEPARTMENTOF RADIOLOGY Peng t: KAREN SIMONS Unit #:[id number] Ordering MD: DEREJE NUNEZ MD :1950 Procedure: DEXA Bone Density Axial Age:71 Location: XRAY ExamDate: 05/26/22 Status: REG CLIRoom/Bed: Primary MD: YONATAN MAC DO PatientAcct #: [id number] Order:DEXABONE Additional Copy: DEREJE NUNEZ MD, YASIR DO - EXAM: BONE MINERAL DENSITY PROCEDURE: The bone mineral density (BMD) of the spine and proximal leftfemur was determined using an external X-ray source (Hologic). SITE: [facility] COMPARISON: Prior BMD of 2020 FINDINGS: L1-L4: BMD 0.98gm/cm2 T-Score -0.6 Z-score: 1.7 prior BMD(T) 1.03(-0.2) Femoral neck: BMD 0.68gm/cm2 T-Score -1.5 Z-score: 0.4 Total hip: BMD 0.82 gm/cm2 T-Score -1 Z-score: 0.6 prior BMD(T)0.88 (-0.6) The World Health Organization (WHO) defines osteoporosis (as studied inpost-menopausal women) as a T value of (-)2.5 or less at any site. Osteopenia is defined by a T value between (-)1.1 and (-)2.4. 10-year Fracture Risk (FRAX) Major osteoporotic fracture 9.5% Hip fracture 1.7% In general, it is recommended that patients receive approximately 1000 mgof calcium daily, either from dairy products or supplements (including multiple vitamin). Patients should considersupplementing with vitamin D. Vitamin D recommendations should be discussed with Health Care Provider and measurement of vitamin D levelsshould be considered. Careful weight-bearing exercise is also useful in maintaining bone mass and to help protect against falls. Based on our precision data, a change of 1.5% in the spine or total hipis significant in the individual patient. IMPRESSION: This patient has osteopenia. Compared to the prior study, there has nan decrease in the BMD/T value of the spine and hip. Thank you for the courtesy of this referral. ELECTRONICALLY SIGNED BY: Arias Miranda MD 05/26/2022 11:22 [place] [id number] Dereje Nunez MD IMG DXA PROCEDURES Final Result * (ABNORMAL) Comprehensive Metabolic Panel (05/10/2022 9:30 AM EDT) NA 140 136 - 145 mMOL/L [facility] K 4.4 3.5 - 5.1 mMOL/L [facility] Cl 106 98.0 - 109.0 mMOL/L [facility] CO2 26 23 - 32 mMOL/L [facility] Anion Gap 12 11 - 21 mMOL/L [facility] BUN 15 8 - 23 mg/dL [facility] Creatinine 0.91 0.50 - 1.12 mg/dL [facility] eGFR 63 60- eGFR [facility] Comment: GFR=60-89mL/min/1.73m^2; POSSIBLE MILDLY REDUCED KIDNEY FUNCTION (STAGE G2) Glucose 103(H) 60 - 99 mg/dL [facility] Calcium 9.6 8.4 - 10.4 mg/dL [facility] Bilirubin, Total 0.43 0.2 - 1.2 mg/dL [facility] AST 25 0 - 33 U/L [facility] ALT 16 0 - 33 U/L [facility] Total Protein 6.7 6.6 - 8.7 g/dL [facility] Albumin 4.1 3.5 - 5.0 gm/dL [facility] Globulin, Total 2.6 1.3 - 3.5 gm/dL [facility] A/G Ratio 1.6 1.5 - 3.0 . [facility] Alkaline Phosphatase 46 40.0 - 129.0 U/L [facility] 05/10/2022 9:30 AM EDT Dereje Nunez MD LAB BLOOD ORDERABLES Anayeli l Result [facility] * Hepatitis C Antibody w/Reflex to HCV RNA, Quantitative PCR (05/15/2020 9:11 AM EDT) Hepatitis C Antibody Interpretation NONREACTIVE NONREACTIVE . [facility] 05/15/2020 9:11 AM EDT us Susy Rdz MD LAB BLOOD ORDERABLES Final Resu lt [facility] from Last 3 Months or Most Recently Relevant to Health Maintenance Advance Directives Documents on File Type Date Recorded Patient Test Bore Helper Expl anation Health Care Proxy 03/02/2022 03/02/2022 Health Care Proxy 08/07/2021 07/24/2021 Care Teams Concrete Technician Relationship Specialty Start Date End Date Horace Stovall MD [address] [place] [address] PCP - General Internal Medicine 08/01/23
--- OUTSIDE RECORDS SUMMARY | 2024-04-24 10:36 | XMS_ITS | Referral Summary ---
Author Organization [facility] Address [address] [place] [address] Care Team Providers Care Orthotics Prosthetics Technician Name Role Phone Horace Stovall MD Primary Care Provider Encounters Date Type Department Care Team Description 02/08/2024 Refill [facility] [address] [facility] Endocrinology Department [address] [place] [address] Dereje Nunez MD Age-related osteoporosis without current pathological fracture from Last 3 Months Allergies Active Allergy Reactions Criticality Noted Date [...] right thumb with damage to nail 11/23/2022 Immunizations Immunization Administration Dates Next Due Covid-19, [...] Vaccine Recombinant 01/02/2020,11/02/2019 Zoster Vaccine, Live 11/02/2019,05/16/2011 Social History Tobacco Use Types Packs/Day Years [...] 12/29/2022 8:43 AM EST Plan of Treatment Not on file Procedures * Due to [place] [employer] law, this organization might not be sharing [...] to Health Maintenance Results * Due to [place] [employer] law, this organization might not be sharing [...] OF RADIOLOGY Patient: KAREN SIMONS ?Unit #: [id number] Ordering MD: DEREJE NUNEZ MD ? : [...] using an external X-ray source (Hologic). SITE: ??[facility] COMPARISON: Prior BMD of 2020 FINDINGS: [...] ??Arias Miranda MD 05/26/2022 11:22 AM ?? [id number] Procedure Note Arias Miranda MD - 11/17/2022 DEPARTMENTOF RADIOLOGY Peng t: KAREN SIMONS Unit #:[id number] Ordering MD: DEREJE NUNEZ MD :1950 Procedure: DEXA Bone Density Axial Age:71 Location: XRAY ExamDate: 05/26/22 Status: REG CLIRoom/Bed: Primary MD: YONATAN MAC DO PatientAcct #: [id number] Order:DEXABONE Additional Copy: DEREJE NUNEZ MD, YASIR DO - EXAM: BONE MINERAL DENSITY PROCEDURE: The bone mineral density (BMD) of the spine and proximal leftfemur was determined using an external X-ray source (Hologic). SITE: [facility] COMPARISON: Prior BMD of 2020 FINDINGS: [...] SIGNED BY: Arias Miranda MD 05/26/2022 11:22 [id number] us Dereje Nunez MD IM DXA PROCEDURES Final Result * (ABNORMAL) Comprehensive [...] [facility] 05/10/2022 9:30 AM EDT us Dereje Nunez MD LAB BLOOD ORDERABLES Anayeli [...] Documents on File Type Date Recorded Patient Edger Machine Operator Expl anation Health Care Proxy 03/02/2022 03/02/2022 Health Care Proxy 08/07/2021 07/24/2021 Care Teams Orthotics Prosthetics Technician Relationship Specialty Start Date End Date Horace Stovall MD [address] [place] [id number] PCP - General Internal Medicine 08/01/23
--- OUTSIDE RECORDS SUMMARY | 2024-04-24 10:36 | XMS_ITS | Encounter Summary ---
Author Organization [facility] Address [address] [place] [address] Care Team Providers Care Hose Finisher Name Role Phone Physician, Pcp Unknown Primary Care Provider Sara vailable Encounter Details Date Type Department Care Team (Late st Contact Info) Description 03/22/2024 Lab Requisition [facility] - Main Lab [address] [facility] [place] [address] Joshua Arreaga MD [address] [facility] [address] [place] [address] Gross hematuria Social History Tobacco Use Types Packs/Day Years Used Date Smoking Tobacco: Never Assessed Comments Unknown Sex and Gender Information Value Date Recorded Sex Assigned at Not on file Legal Sex Female 2:07 PM EST Gender Identity Not on file Sexual Orientation Not on file documented as of this encounter Plan of Treatment Not on file documented as of this encounter Procedures Procedure Name Priority Date/Time Associated Diagnosis Comments AP OUTSIDE CONSULT Routine 03/20/2024 12 :00 AM EST Gross hematuria documented in this encounter Results * Anatomic pathology outside consult (03/20/2024 12:00 AM EST) Final Diagnosis A. Urine, Voided, ([id number]): Negative for high grade urothelial carcinoma. Acute inflammatory cells are present. 04/02/2024 4:56 PM EST [facility] Clinical Information Gross hematuria R31.0 Urine cytology with reflex [facility]ro[employer] ([facility]) 04/02/2024 4:56 PM EST [facility] Gross Description A. Urine, Voided, ([id number]): Received is one ThinPrep slide for cytology. 04/02/2024 4:56 PM EST [facility] Disclaimer Unless otherwise specified, all tissue is 10% NB formalin fixed and paraffin embedded. Technical pathology services provided by [facility] at [address] [facility] [address], [place] [address] (CLIA #[id number]/Trino Retana MD, Software Quality Manager) 04/02/2024 4:56 PM EST [facility] Tissue Urine specimen from urethra / Unknown 03/20/2024 03/22/2024 2:13 PM EST us Joshua Arreaga MD LAB PATHOLOGY ORDERABLES Final Result [facility] [address] [place] [address], documented in this encounter Visit Diagnoses Diagnosis Gross hematuria documented in this encounter Care Teams Hose Finisher Relationship Specialty Start Date End Date Physician, Pcp Unknown PCP - General 03/22/24 documented as of this encounter
--- OUTSIDE RECORDS SUMMARY | 2024-04-24 10:36 | XMS_ITS | Clinical Summary ---
Author Organization [email or web address] Address [address] [facility] [address] [place] [address] Care Team Providers Care Coffee Taster Name Role Phone No, Pcp [facility] Primary Care Provider Unavailabl e Allergies Active Allergy Reactions Criticality Noted Date Comments Reuben Inhibitors Other (See Comments) 11/20/2016 Amlodipine Rash Low 11/20/2016 Immunizations Name Administration Dates Next Due Fluzone Trivalent High Dose (65+ years) 11/01/19 18,11/20/2016 Social History Tobacco Use Types Packs/Day Years Used Date Smoking Tobacco: Never Assessed Comments Unknown Sex and Gender Information Value Date Recorded Sex Assigned at Not on file Legal Sex Female 9:25 AM EDT Gender Identity Not on file Sexual Orientation Not on file Plan of Treatment Health Maintenance Due Date Last Done Comments Colorectal Cancer: COLONOSCO PY Screening every 10 yrs (or Modifier) 1950 Depression: Screening Annual ly using PHQ-2/9 in Adults 18 yrs or above (or HM Modifier)([facility]) 08/04/1967 Hepatitis C Virus Infection in Adolescents and Adults: Screening (or Modifier) ([facility]) 08/04/1967 SDWI Screening Reminder: Miriam brooks for all adults ([facility]) 08/04/1967 Tobacco Smoking Cessation: i n Adults excluding Women: Behavioral and Pharmacotherapy Interventions ([facility]) 08/04/1967 DTaP/Tdap/Td Vaccines ([facility]) (1 - Tdap) 1968 Colorectal Cancer Screening 45 -75 Yrs (or HM Modifier) 1994 Colorectal Cancer: FLEXIBLE SIGMOIDOSCOPY Screening every 5 yrs 1994 Colorectal Cancer: Fecal Imm unochemical Test (FIT) Annually [facility] 1994 Colorectal Cancer: High-sens itivity gFOBT Screening Annually [facility] 1994 Colorectal Cancer: Stool Col oguard Screening every 3 yrs 1994 Colorectal Cancer:CT Colonog kenya Screening every 5 yrs 1994 Lipid Screening: Every 5 yrs for Women aged 45+ (or HM Modifier) ([facility]) 08/04/1995 Breast Cancer: Screening Miriam ually age 50-74 yrs (or HM Modifier)([facility]) 08/04/1999 Zoster/Shingles Vaccine Seri es Screening: Adults aged 18+ yrs (or HM Modifiers)([facility]) (1 of 2) 08/04/1999 Osteoporosis Screening to Pr event Fractures: Women aged 65 years+ ([facility]) 2014 Pneumococcal Vaccination Scr eening: Patients 65+ yrs of age ([facility]) (1 of 1 - PCV) 2014 Flu Vaccination: Ages 65+: Y early High Dose Recommended (or Modifier)([facility]) 09/22/2023 10/31/2017, 7 COVID-19 Vaccine Screening: Initial Series and Booster Status ([facility]) ( - 2023-25 season) 2023 RSV Vaccines (1 - 1-dose 75+ series) 2024 [employer] Devices Not on file Insurance MEDICARE Care Teams Coffee Taster Relationship Specialty Start Date End Date No, Pcp, [facility] N/A Do not use PCP - General 11/21/19
--- OUTSIDE RECORDS SUMMARY | 2024-04-24 10:37 | XMS_ITS ---
Author Organization [facility] Address [address] [place], [place] [address] Care Team Providers Care Customs Broker Name Role Phone Lee Barnes MD Primary Care Provider Michael Leonard Unavailable [phone] Josh Power Unavailable Unavailable Allergies Allergen (clinical drug ingredient) Drug/Non Drug Allergy documented on EMR Reaction Allergy Type Onset Date Status Norvasc rash Drug Allergy Active angiotensin-converting enzyme inhibitor (FN) SKYLAR Inhibitors Unknown Drug Allergy Acti ve REASON FOR VISIT 6 Month f/u Asthma Medications Medication SIG (Take, Route, Frequency, Duration) Notes Start Date End Date Status Fluticasone Propionate 50 MCG/ACT 1 spray in each nostril Nasally Once a day for 90 days Active Trelegy Ellipta 200-62.5-25 MCG/ACT 1 puff Inhalation Once a day for 30 days Active Calcium + D 500-1000-40 MG-UNT-MCG as directed Orally Active prevastin 40mg one capsual once a day Active SUMAtriptan Succinate 25 MG 1 tablet at least 2 hours between doses as needed Orally Twice a day as needed Active Alendronate Sodium 35 MG 1 tablet 30 min utes before the first food, beverage or medicine of the day with plain water Orally for 30 day(s) Active Naproxen Active Losartan Potassium 50 MG 1 tablet Orally Once a day for 30 day(s) Active Levoxyl 75 MCG 1 tablet in the morning on an empty stomach Orally Once a day Active Super B Complex Acti ve Topiramate 25 MG 1 tablet Orally Once a day for 30 day(s) twice a day Active Albuterol Sulfate HFA 108 (90 Base) MCG/ACT 1 puff as needed Inhalation every 4 hrs Active Social History Tobacco Use: Social History Observation Description Date Details (start date - stop date) Never Smoker NA - NA Tobacco Question Answer Notes Are you a: never smoker Additional Findings: Tobacco Non-User Does not u se moist powdered tobacco Vital Signs Weight 130 lbs 10/28/2023 Blood pressure systolic 120 mm Hg 10/28/19 24 Blood pressure diastolic 74 mm Hg 024 Heart Rate 65 /min 10/28/2023 Respiratory Rate 14 /min 10/28/2023 Height 66 in 10/28/2023 BMI 20.98 kg/m2 10/28/2023 Encounters Encounter Location Date Provider Diagnosis [facility] [address] [place] [address] 10/28/2023 Michael Gant Moderate persistent asthma J45.40 and Allergic rhinitis J30.9 Assessments Encounter Date Diagnosis (ICD Code) Assessment Notes Treatment Notes Treatment Clinical Notes Section Notes 10/28/2023 Moderate persistent asthma (ICD-10 - J45.40) Will require pneumonia vaccination if has not received yet also influenza vaccination annually. Also had RSV vaccine 10/28/2023 Allergic rhinitis (ICD-10 - J30.9) Plan Of Treatment Medication Medication Name Sig Start Date Stop Date Notes Fluticasone Propionate 50 MCG/ACT 1 spray in each nostril Nasally Once a day for 90 days Trelegy Ellipta 200-62.5-25 MCG/ACT 1 puff Inhalation Once a day for 30 days Albuterol Sulfate HFA 108 (9 0 Base) MCG/ACT 1 puff as needed Inhalation every 4 hrs Treatment Notes Assessment Notes Moderate persistent asthma Will require pneumonia vaccination if has not received yet also influenza vaccination annually. Also had RSV vaccine Next Appt Details Follow Up: 6 Months, Reason: Provider Name:Michael Gant, 05/09/2024 10:30:00 AM, [address] [place], [address], Progress Notes * FEROZ SIMONSDOB:1950 (73 yo F)Acc No.[id number]:10/28/2023 Patient:?FEROZ SIMONS Provider:?[facility]1950???Age:73 Y???Sex:Female D ate:10/28/2023 Address:[address] [place] [address], [place] , [facility] Pcp:Lee Barnes MD Subjective: * Chief Complaints: * ???6 Month f/u Asthma * HPI: ???Asthma:?73 year old female presents with c/o Asthma.?Since the last visit?the shortness of breath is stable with the use of Trelegy. Had some difficulty with humidity in summer but now feels better. She had a fall and injured her ankle and right wrist?.?The cough is?improved.?The shortness of breath is?mild occuring with climbing up one flight of stairs.?Bronchodilator use is now?albuterol rarely.?Patient denies?chest pain chills fever hemoptysis.? * ROS:?follow up ROS:?General:?alert, energetic.?Cardiology:?no chest pain with exertion, no chest pain while asleep, no palpitations, no leg swelling, no shortness of breath when supine, no shortness of breath with exertion.?Endocrinology:?no new/worsening heat/cold intolerance, no new/worsening sexual dysfunction, no new/worsening of hot flashes.?GI:?no reflux symptoms while asleep, denies occasional nausea/vomiting.?Neurology:?no headaches in the AM, no excessive night movement, gait stable, no indication of nocturnal seizures, no recent loss of coordination, no new motor or sensory losses.?Psychology:?heightended mood, no suicidal thoughts, optimistic, memory good/better, concentration good/better, motivation good/better.?Pulmonology:?no shortness of breath during the day, no worsening cough, no chest pain with breathing.?All other 12 systems reviewed and negative other than above. * Medical History:? * Surgical History:?Colonoscop y Ankle Fx, ORIF Hysterectomy Knee surgery Hip surgery Tonsillectomy/Adenoidectomy * Hospitalization/Major Diagno stic Procedure:? * Family History:?Father: dece ased, Bladder cancer, diagnosed with Diabetes mellitus, Hypertension, Cancer.?Mother: , diagnosed with Diabetes mellitus, Hypertension.? * Social History:?Marital stat us: . 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 Occup. exposure: None. Tobacco?Are you a:?never smoker,?Additional Findings: Tobacco Non-User?Does not use moist powdered tobacco.?Alcohol: None. Recreational drug use: None. * Medications:?TakingAlbuterol Sulfate HFA 108 (90 Base) MCG/ACT Aerosol Solution 1 puff as needed Inhalation every 4 hrs Naproxen Alendronate Sodium 35 MG Tablet 1 tablet 30 minutes before the first food, beverage or medicine of the day with plain water Orally Super B Complex Calcium + D 500-1000-40 MG-UNT-MCG Tablet Chewable as directed Orally SUMAtriptan Succinate 25 MG Tablet 1 tablet at least 2 hours between doses as needed Orally Twice a day , Notes to Pharmacist: as neededprevastin 40mg one capsual once a day Topiramate 25 MG Tablet 1 tablet Orally Once a day , Notes to Pharmacist: twice a dayLevoxyl 75 MCG Tablet 1 tablet in the morning on an empty stomach Orally Once a day Losartan Potassium 50 MG Tablet 1 tablet Orally Once a day Fluticasone Propionate 50 MCG/ACT Suspension 1 spray in each nostril Nasally Once a day Trelegy Ellipta 200-62.5-25 MCG/ACT Aerosol Powder Breath Activated 1 puff Inhalation Once a day Medication List reviewed and reconciled with the patientTaking Albuterol Sulfate HFA 108 (90 Base) MCG/ACT Aerosol Solution 1 puff as needed Inhalation every 4 hrs Taking Naproxen Taking Alendronate Sodium 35 MG Tablet 1 tablet 30 minutes before the first food, beverage or medicine of the day with plain water Orally Taking Super B Complex Taking Calcium + D 500-1000-40 MG-UNT-MCG Tablet Chewable as directed Orally Taking SUMAtriptan Succinate 25 MG Tablet 1 tablet at least 2 hours between doses as needed Orally Twice a day , Notes to Pharmacist: as neededTaking prevastin 40mg one capsual once a day Taking Topiramate 25 MG Tablet 1 tablet Orally Once a day , Notes to Pharmacist: twice a dayTaking Levoxyl 75 MCG Tablet 1 tablet in the morning on an empty stomach Orally Once a day Taking Losartan Potassium 50 MG Tablet 1 tablet Orally Once a day Taking Fluticasone Propionate 50 MCG/ACT Suspension 1 spray in each nostril Nasally Once a day Taking Trelegy Ellipta 200-62.5-25 MCG/ACT Aerosol Powder Breath Activated 1 puff Inhalation Once a day Medication List reviewed and reconciled with the patient * Allergies:?Norvasc: silviaSKYLAR Finleymagali[Allergies Verified] Objective: * Vitals:?Wt: 130, BP:120/74, HR: 65, RR: 14, O2 sat: 98%RA, Ht: 66, BMI:20.98. * Examination: ???General Physical Exam: ?General Appearance:?in no acute distress.?Eyes?Conjunctiva not injected, Sclera not icteric, EOMI, PERRL.?Ears?No significant abnormalities, bilaterally.?Nose?No significant mucosal congestion (normal mucosa). No nasal discharge. No nasal polyps seen.?Sinuses?Non tender.?Oral cavity?No significant abnormalities appreciated.?The hypopharynx?Normal in appearance; no erythema or exudate.?Neck Supple, JVP is normal, no masses, thyroid is normal.?Chest?Normal shape and expansion with respiration.?Lungs?Respiratory rate is normal, Percussion normal bilaterally, Breath sounds are clear bilaterally.?Heart:?Normal rate, regular rhythm, Normal S1, normal S2, no murmurs, rub, gallop.?Extremities?No digital clubbing, acrocyanosis or peripheral edema. Lymph?No cervical, submandibular or supraclavicular adenopathy.?Skin:?Warm and dry, No rash on partial skin exam.?Vascular:?Peripheral pulses intact bilaterally.?Neuro:?A & O x 3, Grossly nonfocal motor and sensory exam.?Data?All data and notes provided were personally reviewed.?Data: ?Radiographs? CXR from 10/23/21 was personally reviewed by me and shows no acute infiltrate or effusion. Mild pectus excavatum deformity.?Pulmonary Function Tests? PFTs from 07/02/20 were personally reviewed by me. Spirometry shows mild ventilatory defect on obstructive basis. TLC is normal. Diffusing capacity is reduced. These finings are consistent with diagnosis of?asthma versus mild?COPD.?Miscellaneous?Time spent for the visit is 32 minutes including face to face contact with the patient, review and analysis of data and documentation.? Assessment: * Assessment: 1.?Moderate persistent asthm a - J45.40 (Primary)?2.?Allergic rhinitis - J30.9? Plan: * Treatment: 2.?Allergic rhinitis? Continue Fluticasone Propionate Suspension, 50 MCG/ACT, 1 spray in each nostril, Nasally, Once a day, 90 days, 3, Refills 3.?? * Procedure Codes:? * Preventive Medicine:? ??Counseling:?Fall Risk ?Have you had any falls in the past year??Yes,?Have you had any falls with injury in the past year??Yes,?Assessment:?Performed.? * Follow Up:?6 Months * Images: * Sign off status: Completed true * Provider:?Michael Gant MD, [facility] Date:? 10/28/2023 Generated for Radha malave/Sonali/eTransmitting on:?04/24/2024 10:36 AM EST History and Physical Notes * HPI (History of Present Illness) Category Sub-Category Detail Notes Category Not es Asthma Since the last visit the shortne ss of breath is stable with the use of Trelegy. Had some difficulty with humidity in summer but now feels better. She had a fall and injured her ankle and right wrist Patient denies chest pain chills fe see hemoptysis The cough is improved The shortness of breath is mild occuring with climbing up one flight of stairs Bronchodilator use is now albuterol rare ly Asthma Examination Category Sub-Category Detail Notes Category Not es General Physical Exam Eyes Conjunctiv a not injected, Sclera not icteric, EOMI, PERRL Neck Supple, JVP is rowena l, no masses, thyroid is normal Heart: Normal rate, regular rhythm, Normal S1, normal S2, no murmurs, rub, gallop Lungs Respiratory rate is normal, Percussion normal bilaterally, Breath sounds are clear bilaterally General Appearance: in no acute distress Oral cavity No significant abnor malities appreciated Chest Normal shape and exp ansion with respiration Extremities No digital clubbing, acrocyanosis or peripheral edema Ears No significant abnor malities, bilaterally Nose No significant mucos al congestion (normal mucosa). No nasal discharge. No nasal polyps seen The hypopharynx Normal in appearance ; no erythema or exudate Sinuses Non tender Skin: Warm and dry, No rosetta h on partial skin exam Neuro: A & O x 3, Grossly n onfocal motor and sensory exam Vascular: Peripheral pulses in tact bilaterally Lymph No cervical, submand ibular or supraclavicular adenopathy Data All data and notes p rovided were personally reviewed Data Radiographs CXR from 10/23/21 was personally reviewed by me and shows no acute infiltrate or effusion. Mild pectus excavatum deformity Pulmonary Function Tests PFTs from were personally reviewed by me. Spirometry shows mild ventilatory defect on obstructive basis. TLC is normal. Diffusing capacity is reduced. These finings are consistent with diagnosis of asthma versus mild COPD Miscellaneous Time spent for the v isit is 32 minutes including face to face contact with the patient, review and analysis of data and documentation
--- OUTSIDE RECORDS SUMMARY | 2024-04-24 10:37 | XMS_ITS ---
Author Organization [facility] Address [address] [place], [place] [id number] Care Team Providers Care Temporary Staff Accountant Name Role Phone Lee Barnes MD Primary Care Provider Michael Leonard Unavailable [phone] Josh Power Unavailable Unavailable Allergies Allergen (clinical drug ingredient) Drug/Non Drug Allergy documented on EMR Reaction Allergy Type Onset Date Status amlodipine Norvasc rash Drug Allergy Active angiotensin-converting enzyme inhibitor (FN) SKYLAR Inhibitors Unknown Drug Allergy Acti ve REASON FOR VISIT 6 month follow up asthma Medications Medication SIG (Take, Route, Frequency, Duration) Notes Start Date End Date Status Fluticasone Propionate 50 MCG/ACT 1 spray in each nostril Nasally Once a day for 90 days Active ProAir HFA 108 (90 Base) MCG/ACT 2 puff Inhalation every 4 hours as needed for 90 days Active Trelegy Ellipta 200-62.5-25 MCG/ACT 1 puff Inhalation Once a day for 30 days Active Fluticasone Propionate 50 MCG/ACT USE 1 SPRAY IN EACH NOSTRIL DAILY Active Losartan Potassium 50 MG 1 tablet Orally Once a day for 30 day(s) Active SUMAtriptan Succinate 25 MG 1 tablet at least 2 hours between doses as needed Orally Twice a day as needed Active prevastin 40mg one capsual once a day Active Topiramate 25 MG 1 tablet Orally Once a day for 30 day(s) twice a day Active Levoxyl 75 MCG 1 tablet in the morning on an empty stomach Orally Once a day Active Calcium + D 500-1000-40 MG-UNT-MCG as directed Orally Active Naproxen Active Alendronate Sodium 35 MG 1 tablet 30 min utes before the first food, beverage or medicine of the day with plain water Orally for 30 day(s) Active Super B Complex Acti ve Social History Tobacco Use: Social History Observation Description Date Details (start date - stop date) Never Smoker NA - NA Tobacco Question Answer Notes Are you a: never smoker Additional Findings: Tobacco Non-User Does not u se moist powdered tobacco Vital Signs Weight 127 lbs 04/27/2023 Blood pressure systolic 118 mm Hg 04/27/19 24 Blood pressure diastolic 74 mm Hg 024 Heart Rate 88 /min 04/27/2023 Respiratory Rate 16 /min 04/27/2023 Height 66 in 04/27/2023 BMI 20.5 kg/m2 04/27/2023 Encounters Encounter Location Date Provider Diagnosis [facility] [address] [place] [address] 04/27/2023 Michael Gant Moderate persistent asthma J45.40 and Allergic rhinitis J30.9 Assessments Encounter Date Diagnosis (ICD Code) Assessment Notes Treatment Notes Treatment Clinical Notes Section Notes 04/27/2023 Moderate persistent asthma (ICD-10 - J45.40) Will require pneumonia vaccination if has not received yet also influenza vaccination annually. Also had RSV vaccine 04/27/2023 Allergic rhinitis (ICD-10 - J30.9) Plan Of Treatment Medication Medication Name Sig Start Date Stop Date Notes Fluticasone Propionate 50 MCG/ACT 1 spray in each nostril Nasally Once a day for 90 days ProAir HFA 108 (90 Base) MCG/ACT 2 puff Inhalation every 4 hours as needed for 90 days Trelegy Ellipta 200-62.5-25 MCG/ACT 1 puff Inhalation Once a day for 30 days Treatment Notes Assessment Notes Moderate persistent asthma Will require pneumonia vaccination if has not received yet also influenza vaccination annually. Also had RSV vaccine Next Appt Details Follow Up: 6 Months, Reason: Provider Name:Michael Gant, 05/09/2024 10:30:00 AM, [address] [place], [address], Progress Notes * FEROZ SIMONSDOB:1950 (72 yo F)Acc No.[id number]:04/27/2023 Patient:?FEROZ SIMONS Provider:?Michael Gant MD, [facility]P :1950???Age:72 Y???Sex:Female D ate:04/27/2023 Address:[address] [place], [place] [id number] Pcp:Lee Barnes MD Subjective: * Chief Complaints: * ???6 month follow up asthma * HPI: ???Asthma:?72 year old female presents with c/o Asthma.?Since the last visit?the shortness of breath is stable with the use of Trelegy.?The cough is?improved.?The shortness of breath is?mild occuring with climbing up one flight of stairs.?Bronchodilator use is now?albuterol rarely. Patient denies?chest pain chills fever hemoptysis.? * ROS:?follow [...] tobacco.?Alcohol: None. Recreational drug use: None. * Medications:?TakingNaproxen Alendronate Sodium 35 MG Tablet 1 tablet [...] Tablet 1 tablet Orally Once a day ProAir HFA 108 (90 Base) MCG/ACT Aerosol Solution 2 puff Inhalation every 4 hours as needed Fluticasone Propionate 50 MCG/ACT Suspension USE 1 SPRAY IN EACH NOSTRIL DAILY Trelegy Ellipta 200-62.5-25 MCG/ACT Aerosol Powder Breath Activated 1 puff Inhalation Once a day Medication List reviewed and reconciled with the patientTaking Naproxen Taking Alendronate Sodium 35 MG Tablet [...] 1 tablet Orally Once a day Taking ProAir HFA 108 (90 Base) MCG/ACT Aerosol Solution 2 puff Inhalation every 4 hours as needed Taking Fluticasone Propionate 50 MCG/ACT Suspension USE 1 SPRAY IN EACH NOSTRIL DAILY Taking Trelegy Ellipta 200-62.5-25 MCG/ACT Aerosol Powder Breath Activated 1 puff Inhalation Once a day Medication List reviewed and reconciled with the patient * Allergies:?Norvasc: rashACE Maliano[Allergies Verified] Objective: * Vitals:?Wt: 127, BP:118/74, HR: 88, RR: 16, O2 sat: 99%RA, Ht: 66, BMI:20.5. * Examination: ???General Physical Exam: ?General Appearance:?in [...] status: Completed true * Provider:?Michael Gant MD, [facility] Date:? 04/27/2023 Generated for Radha malave/Sonali/eTransmitting on:?04/24/2024 10:36 AM EST History and Physical Notes * HPI (History of Present Illness) Category Sub-Category Detail Notes Category Not es Asthma Since the last visit the shortne ss of breath is stable with the use of Trelegy Patient denies chest pain chills fe see [...]
--- OUTSIDE RECORDS SUMMARY | 2024-04-24 10:37 | XMS_ITS | Clinical Summary ---
Author Organization [facility] Address [address] [place] [address] Phone Care Team Providers Care Cp Bleacher Operator Name Role Phone Physician, Pcp Unknown Primary Care Provider Sara vailable Encounters Date Type Department Care Team Description 03/22/2024 Lab Requisition [facility] - Main Lab [address] [facility] [place] [address] Joshua Arreaga MD Gross hematuria from Last 3 Months Social History Tobacco Use Types Packs/Day Years Used Date Smoking Tobacco: Never Assessed Comments Unknown Sex and Gender Information Value Date Recorded Sex Assigned at Not on file Legal Sex Female 2:07 PM EST Gender Identity Not on file Sexual Orientation Not on file Plan of Treatment Health Maintenance Due Date Last Done Comments Breast Cancer Screening 1950 DTaP,Tdap,and Td Vaccines (1 - Tdap) 1968 Pneumococcal Vaccine: 50+ Ye ars (1 of 1 - PCV) 08/04/1999 Zoster Vaccines (1 of 2) 08/04/1999 COVID-19 Vaccine ( - 2023-2 5 season) 2023 Influenza Vaccine (#1) 2023 Colorectal Cancer Screening: Colonoscopy 03/22/2024 Depression Screening 03/22/2024 Falls Risk Assessment 03/22/2024 Hepatitis C Screening 03/22/2024 Medicare Annual Wellness Visit 03/22/2024 Osteoporosis Screening (Bone Density Screening) 03/22/2024 Social Influencers of Health Screening 03/22/2024 RSV Immunization Patients 60 + Years Old (1 - 1-dose 75+ series) 2024 HIB Vaccines Aged Out No longer eligi ble based on patient's age to complete this topic HPV Vaccines Aged Out No longer eligi ble based on patient's age to complete this topic Hepatitis A Vaccines Aged Out No long er eligible based on patient's age to complete this topic Hepatitis B Vaccines Aged Out No long er eligible based on patient's age to complete this topic IPV Vaccines Aged Out No longer eligi ble based on patient's age to complete this topic MMR Vaccines Aged Out No longer eligi ble based on patient's age to complete this topic Meningococcal ACWY Vaccine Aged Out N o longer eligible based on patient's age to complete this topic Meningococcal B Vacine Aged Out No lo nger eligible based on patient's age to complete this topic RSV Immunization Patients Un rubina 20 months Aged Out No longer eligible b ased on patient's age to complete this topic Varicella Vaccines Aged Out No longer eligible based on patient's age to complete this topic Procedures Procedure Name Priority Date/Time Associated Diagnosis Comments AP OUTSIDE CONSULT Routine 03/20/2024 12 :00 AM EST Gross hematuria from Last 3 Months Results * Anatomic pathology outside consult (03/20/2024 12:00 AM EST) Final Diagnosis A. Urine, Voided, ([id number]): Negative for high grade urothelial carcinoma. Acute inflammatory cells are present. 04/02/2024 4:56 PM [facility] Clinical Information Gross hematuria R31.0 Urine cytology with reflex UroVysion (AUC/GUC) 04/02/2024 4:56 PM [facility] Gross Description A. Urine, Voided, ([id number]): Received is one ThinPrep slide for cytology. 04/02/2024 4:56 PM [facility] Disclaimer Unless otherwise specified, all tissue is 10% NB formalin fixed and paraffin embedded. Technical pathology services provided by [facility] at [address] [place] [address] [address], [place] [address] (CLIA #[id number]/Trino Retana MD, Unit Supervisor) 04/02/2024 4:56 PM [facility] Tissue Urine specimen from urethra / Unknown 03/20/2024 03/22/2024 2:13 PM EST us Joshua Arreaga MD LAB PATHOLOGY ORDERABLES Final Result [facility] [address] [place] [address], [place] [phone] from Last 3 Months Insurance [employer] MEDICARE [employer] MEDICARE Care Teams Cp Bleacher Operator Relationship Specialty Start Date End Date Physician, Pcp Unknown PCP - General 03/22/24
[2024-04-24 12:08] VITALS: BP 143/70; PULSE 77; RESP 16; TEMP 36.6; O2SAT 100; BMI 20.8
--- NOTE | 2024-04-24 12:27 | MHC.SHP ---
Pre-Procedural Eval Section A - 24 Hr Update-Section A only Date of Service: 04/24/24 Section B - Complete if H&P > 30 days Chief Complaint: Benign neoplasm of colon,screening Relevant Family History (Specify if Yes): No Relevant Social History: None Present Medications: see Short Stay Collaborative assessment Medical History: Significant History (Asthma Hypertension High cholesterol Hypothyroid Osteopenia History of colon polyps Migraines Generalized osteoarthritis Lumbar spondylosis History of right ankle fracture) History of Previous Operations: Relevant previous surgery/procedure and date(s) (Hysterectomy Ankle fx repair Left knee arthroscopic Rt arthorscopic hip repair cataract surg) Allergies: Allergies Allergy/AdvReac Type Severity Reaction Status Date / Time SKYLAR Inhibitors AdvReac Mild Cough Verified 04/24/24 11:45 amlodipine [From Norvasc] AdvReac Mild Rash Verified 04/24/24 11:45 Review of Systems Sugical H&P ROS: Negative: Constitution, Cardiovascular, Respiratory, Neurological, Psychiatric, Hem-Onc, Allergic/Immunologic, Gastrointestinal, Genitourinary, Musculoskeletal, Integumentary, Endocrine and Eyes/Ears/Nose/Throat Exam Surgical H&P Exam: Normal: HEENT, Normal: Heart, Normal: Lungs, Normal: Extremities, Normal: Abdomen, Normal: Skin and Normal: Neurological Plan Diagnosis/Plan: Unchanged I have reviewed the history and physical and performed a pertinent physical examination on my patient. No changes have occurred unless specified. Time Spent With Patient Time: Total time managing care of this patient today ____ minutes.
--- NOTE | 2024-04-24 13:25 | HO.ANESPROP2 ---
[facility] Active Problems Active Problems: All Active Problems Annual wellness visit (Acute) Well woman exam (Acute) Benign paroxysmal positional vertigo (Acute) Right shoulder tendonitis (Acute) Cervical cancer screening (Acute) De Quervain's tenosynovitis, right (Acute) Tenderness of anatomical snuffbox (Acute) Right hand fracture (Acute) Closed right fibular fracture (Acute) Tubular adenoma of colon (Acute) Tendinopathy of right shoulder (Acute) B12 deficiency (Acute) Migraine (Acute) Family history of bladder cancer (Acute) Breast cancer screening (Acute) Osteopenia (Acute) Hypothyroidism (Acute) Hypertension (Acute) Hyperlipidemia (Acute) Asthma (Acute) Colon polyps (Acute) Past Medical History Medical History Mild intermittent asthma, uncomplicated Personal history of colonic polyps Lesion of throat SI joint arthritis Chronic osteoarthritis Osteoarthritis of sacroiliac joint Osteoarthritis of right hip Nabothian cyst Lumbar spondylosis SHEBA positive Colon polyps Closed fracture of right ankle B12 deficiency Asthma Migraine Hyperlipidemia Hypertension Hypothyroidism Allergic rhinitis Osteopenia Functional capacity: independent ambulation Patient : No Family History Family History Father Bladder cancer Brother Bladder cancer Family history of problems with anesthesia: No Surgical History Surgical History History of hysterectomy, supracervical H/O colonoscopy History of cataract surgery S/P left knee arthroscopy History of hip surgery History of Problems with Anesthesia: No Social History Social History Housing: House Patient Tobacco Use Status: Never used Tobacco e-Cigarette/Vaping Use: Never Used Use of substances other than those prescribed or required for medical reasons: No Are you DNR?: No Advance Directives: No Advance Directives Information Provided: Yes service: No Current occupational status: retired Current occupation: rt handed Cognitive needs: No Hearing needs: No Vision needs: Yes Meds Allergies Allergy/AdvReac Type Severity Reaction Status Date / Time SKYLAR Inhibitors AdvReac Mild Cough Verified 04/24/24 11:45 amlodipine [From Norvasc] AdvReac Mild Rash Verified 04/24/24 11:45 Active Medications: Current Medications Lactated Ringer's (Lr) 1,000 mls @ 100 mls/hr IVCONT .Q10H MOHAMUD Home Medications ?Medication ?Instructions ?Recorded ?Confirmed ?Last Taken ?Type aspirin-acetaminophen (buffered) tab PO PRN Headache 06/01/23 03/07/24 Unknown History 250 mg-250 mg tablet fluticasone propionate 50 1 spray intranasal DAILY 06/01/23 04/24/24 Unknown History mcg/actuation nasal spray,suspension Exam Height,Weight and Vital Signs: Height 5 ft 5 in Weight 56.699 kg Last Vital Signs Temp 97.9 F 04/24/24 12:08 Pulse 77 04/24/24 12:08 Resp 16 04/24/24 12:08 BP 143/70 H 04/24/24 12:08 Pulse Ox 100 04/24/24 12:08 O2 Del Method Room Air 04/24/24 12:08 Airway Mallampati Class: II TM Dist: >3cm Neck ROM: Full Heart: RRR Lungs: CTA Assessment and Plan Assessment Anesthesia Assessment: Anesthesia Plan Discussed and Chart Reviewed Final Anesthetic Review Family History of Problems with Anesthesia: No History of Problems with Anesthesia: No NPO: Yes ASA Class: II Final Preanesthetic Review: Meds/Allgs Chart Reviewed, Consent Obtained/Reviewed and Anes Risks/Benef Reviewed Patient Risk: Low Procedure Risk: Low Anesthetic Plan Anesthetic Plan: MAC: Disposition: Standard PACU
--- NOTE | 2024-04-24 13:42 | P.OPN-COLO_ITS ---
Colonoscopy Operative Note Operative Note Date of Service: 04/24/24 Narrative: Operative Information Procedure Description: Colonoscopy Indication: screening, hx of polyps Anesthesia: MAC COLONOSCOPY Instrument: Olympus variable stiffness pediatric scope 190L Colonoscopy Monitoring: Vital signs and clinical assessment, continuous EKG monitoring, Pulse oximetry, Carbon Dioxide monitoring and blood pressure monitoring were done throughout the procedure. Colon withdrawal time was 12 minutes. Procedure: The patient was placed in the left lateral decubitis position and pre-procedure medications were administered. After a digital rectal examination of the ano-rectum, the video colonoscope was inserted into the rectum and advanced through the colon to the cecum/TI. The colonoscope was slowly withdrawn in a retrograde panoramic fashion and the colon mucosa was carefully examined including a retroflexed view of the rectum. Findings and interventions are described below. Procedure Difficulty: moderate Findings: Terminal Ileum-normal Cecum: 4-6 mm sessile polyp removed with cold snare. flat granular polyp 10-11 mm raised with eleview injection and removed with cold snare Ascending Colon: 10-12 mm sessile polyp lifted with eleview and removed with cold snare, piecemeal--moderate diverticulosis Transverse Colon -normal Descending Colon: mild diverticulosis, 3-4 mm sessile polyp removed with cold forceps Sigmoid Colon: moderate diverticulosis, 5-6 mm sessile polyp removed with cold forceps Rectum: Retroflexion with small internal hemorrhoids seen, grade I Anorectum - normal Intervention: cold snare, cold snare with eleview and cold forceps Colon preparation: Kingston Bowel Preparation Scale Right colon; 3 Transverse colon: 3 Left colon; 3 (0 = Unprepared colon segment with mucosa not seen due to solid stool that cannot be cleared. 1 = Portion of mucosa of the colon segment seen, but other areas of the colon segment not well seen due to staining, residual stool and/or opaque liquid. 2 = Minor amount of residual staining, small fragments of stool and/or opaque liquid, but mucosa of colon segment seen well. 3 = Entire mucosa of colon segment seen well with no residual staining, small fragments of stool or opaque liquid) Impression and Post Procedure Diagnosis: diverticulosis colon polyps x 5 internal hemorrhoids Plan: High fiber diet leaflet Avoid straining at stool, epsom salts and sitz bath, anusol supps or cream Repeat Colonoscopy in 1 year or earlier if clinically indicated Above findings were reviewed with the patient and relevant handouts were provided if indicated.
[2024-04-24 13:50] VITALS: BP 106/48; PULSE 66; RESP 16; TEMP 36.6; O2SAT 98
[2024-04-24 14:05] VITALS: BP 120/56; PULSE 61; RESP 16; TEMP 36.6; O2SAT 98
[2024-04-24 14:20] VITALS: BP 138/61; PULSE 61; RESP 16; TEMP 36.6; O2SAT 98
== END 2024-04-24 14:54 | disposition home or self-care (01) ==
PROVIDERS: PCP Physician Assistant; Visit Provider Internal Medicine Gastroenterology
PROC: 0DJD8ZZ Inspection of Lower Intestinal Tract, Via Natural or Artificial Opening Endoscopic (ICD-10-PCS; CPT 45378; principal; 2024-04-24 13:20)
DX: Z12.11 Encounter for screening for malignant neoplasm of colon (principal); Z86.0101 Personal history of adenomatous and serrated colon polyps; D12.0 Benign neoplasm of cecum; K63.5 Polyp of colon; K57.30 Diverticulosis of large intestine without perforation or abscess without bleeding; K64.0 First degree hemorrhoids; I10 Essential (primary) hypertension; E78.00 Pure hypercholesterolemia, unspecified; E03.9 Hypothyroidism, unspecified; J45.20 Mild intermittent asthma, uncomplicated; M85.80 Other specified disorders of bone density and structure, unspecified site; Z79.51 Long term (current) use of inhaled steroids; Z79.82 Long term (current) use of aspirin; Z79.899 Other long term (current) drug therapy; Z88.8 Allergy status to other drugs, medicaments and biological substances; Z98.890 Other specified postprocedural states
CPT/HCPCS: 45385; 45380; 45381; 88305; J2003; J2704

== ENCOUNTER → 2024-04-24 11:01 | Outpatient (BNV) | payer OTHER, SELFPAY | PROVIDERS: PCP Physician Assistant; Visit Provider Internal Medicine Gastroenterology | DX: Z12.11 Encounter for screening for malignant neoplasm of colon (principal); Z86.0100 Personal history of colon polyps, unspecified; D12.0 Benign neoplasm of cecum; K63.5 Polyp of colon | CPT/HCPCS: 45380; 45381; 45385 ==

== ENCOUNTER 2024-06-14 09:59 | Outpatient (REF) | payer OTHER, SELFPAY ==
--- NOTE | ~2024-06-14 | MM_ITS ---
EXAMINATION: DXA BONE DENSITY AXIAL HISTORY: Z78.0 - Asymptomatic menopausal state TECHNIQUE: [place]on Dual energy absorptiometry (DEXA) of the lumbar spine, total left hip, and femoral neck was performed. COMPARISON: There are no prior studies for comparison. FINDINGS: The bone mineral density of the lumbar spine is 1.091 with a T-score of -0.7, and a Z-score of 1.3. This is indicative of normal bone mineral density. The bone mineral density of the left total hip is 0.820 with a T-score of -1.5, and a Z-score of 0.4. This is indicative of osteopenia. The bone mineral density of the left femoral neck is 0.816 with a T-score of -1.6, and a Z-score of 0.5. This is indicative of osteopenia. MM/XR DEXA axial skeleton IMPRESSION: Based on bone mineral density, and according to World Health Organization (WHO) criteria, the diagnosis is consistent with osteopenia. All bone density values are in grams per centimeter squared (g/cm2). Statistically, 68% of repeat scans fall within 1 SD (+/- 0.010 g/cm2 for AP spine L1-L4) and 1 SD (+/- 0.012 g/cm2 for femur total) FRAX is a trademark of the [employer] [place] [employer] Metabolic Bone Disease, a World Health Organization (WHO) Collaborating Center. Electronically signed by: Arias Yee MD 06/15/2024 07:48 AM EDT
--- OUTSIDE RECORDS SUMMARY | 2024-06-14 11:20 | XMS_ITS | Encounter Summary ---
Author Organization [employer] Address [address] [place] [address] Care Team Providers Care Publications Production Supervisor Name Role Phone Physician, Pcp Unknown Primary Care Provider Sara vailable Encounter Details Date Type Department Care Team (Late st Contact Info) Description 03/22/2024 Lab Requisition [facility] - Main Lab [address] [facility] [place] [address] Joshua Arreaga MD [address] [facility] [address] [place] [address] Gross hematuria Social History Tobacco [...] AM EST) Final Diagnosis A. Urine, Voided, ([id number]): Negative for high grade urothelial carcinoma. Acute inflammatory cells are present. 04/02/2024 4:56 PM EST [facility] Clinical Information Gross hematuria R31.0 Urine cytology with reflex [facility]ro[employer] ([facility]) 04/02/2024 4:56 PM EST [facility] Gross Description A. Urine, Voided, ([id number]): Received is one ThinPrep slide for cytology. 04/02/2024 4:56 PM EST [facility] Disclaimer Unless otherwise specified, all tissue is 10% NB formalin fixed and paraffin embedded. Technical pathology services provided by [facility] at [address] [facility] [address], [place] [address] (CLIA #[id number]/Trino Retana MD, Nurse) 04/02/2024 4:56 PM EST [facility] Tissue Urine specimen from urethra / Unknown 03/20/2024 03/22/2024 2:13 PM EST us Joshua Arreaga MD LAB PATHOLOGY ORDERABLES Final Result [facility] [address] [place] [address], documented in this encounter Visit Diagnoses Diagnosis Gross hematuria documented in this encounter Care Teams Publications Production Supervisor Relationship Specialty Start Date End Date Physician, Pcp Unknown PCP - General 03/22/24 documented as of this encounter
--- OUTSIDE RECORDS SUMMARY | 2024-06-14 11:20 | XMS_ITS | Referral Summary ---
Author Organization [facility] Address [address] [place] [address] Care Team Providers Care Hospitality Job Titles Name Role Phone Horace Stovall MD Primary [...] Not on file Procedures * Due to [place] [employer] law, this organization might not be sharing [...] to Health Maintenance Results * Due to [place] [employer] law, this organization might not be sharing [...] of this study. COMPARISON Compared to: 10/29/2021 [facility] Screening Digital Mammogram and 10/20/2020 [facility] Screening Digital Mammogram Bilateral Breast Findings: The [...] OF RADIOLOGY Patient: KAREN SIMONS ?Unit #: [id number] Ordering MD: DEREJE NUNEZ MD ? : [...] was determined using an external X-ray source ([employer]). SITE: ??[facility] COMPARISON: Prior BMD of 2021 FINDINGS: L1-L4: ??BMD 0.98gm/cm2 ?? T-Score -0.6 [...] ??Arias Miranda MD 05/26/2022 11:22 AM ?? [id number] Procedure Note Arias Miranda MD - 11/17/2022 DEPARTMENTOF RADIOLOGY Peng t: KAREN SIMONS Unit #:[id number] Ordering MD: DEREJE NUNEZ MD :1950 Procedure: DEXA Bone Density Axial Age:71 Location: XRAY ExamDate: 05/26/22 Status: REG CLIRoom/Bed: Primary MD: YONATAN MAC DO PatientAcct #: [id number] Order:DEXABONE Additional Copy: DEREJE NUNEZ MD, YASIR DO - EXAM: BONE MINERAL DENSITY PROCEDURE: The bone mineral density (BMD) of the spine and proximal leftfemur was determined using an external X-ray source ([employer]). SITE: [facility] COMPARISON: Prior BMD of 2020 FINDINGS: L1-L4: [...] SIGNED BY: Arias Miranda MD 05/26/2022 11:22 [id number] us Dereje Nunez MD IMG DXA PROCEDURES Final [...] Documents on File Type Date Recorded Patient Pull Socket Assembler Expl anation Health Care Proxy 03/02/2022 03/02/2022 Health Care Proxy 08/07/2021 07/24/2021 Care Teams Hospitality Job Titles Relationship Specialty Start Date End Date Horace Stovall MD [address] [place] [id number] PCP - General Internal Medicine 08/01/23
--- OUTSIDE RECORDS SUMMARY | 2024-06-14 11:20 | XMS_ITS | Clinical Summary ---
Author Organization [facility] Address [address] [place] [address] Care Team Providers Care Cylinder Worker Name Role Phone Horace Stovall MD Primary [...] 2023 12/01/2022, 12/01/2021, 12/01/2021, Additional history exists Alcohol/Substance Use Screening 02/22/2024 Depression Screening and Follow-Up 02/22/2024 11/23/2022 Health Care Proxy Review 02/22/2024 Social Drivers of Health Annual Screening 02/22/2024 Influenza Vaccine (Season Ended) 2024 12/01/2022, 12/01/2022, 12/01/2021, Additional history exists Mammogram 12/27/2024 12/27/2022, 09/2021, 10/20/2020 Pneumococcal Vaccine: 50+ Years Completed 04/19/2017, 05/16/2015, 08/22/2006 Zoster Vaccines Completed 01/02/2020, 10/22, 11/02/2019, Additional history exists Hepatitis C Screening Completed 05/15/2020 Osteoporosis Screening Completed 05/26/2022, 2020 RSV Vaccine (60+ years old and patients) Completed 12/08/2022 Hepatitis B Vaccines Aged Out No long er eligible based on patient's age to complete this topic Procedures * Due to [place] [employer] law, this organization might not be sharing [...] Health Maintenance Results * Due to [place] [employer] law, this organization might not be sharing [...] 10/29/2021 [facility] Screening Digital Mammogram and 10/20/2020 [facility] Screening Digital Mammogram Bilateral Breast Findings: [...] OF RADIOLOGY Patient: KAREN SIMONS ?Unit #: [id number] Ordering MD: DEREJE NUNEZ MD ? : [...] was determined using an external X-ray source ([employer]). SITE: ??[facility] COMPARISON: Prior BMD of 2020 FINDINGS: [...] ??Arias Miranda MD 05/26/2022 11:22 AM ?? [id number] Procedure Note Arias Miranda MD - 11/17/2022 DEPARTMENTOF RADIOLOGY Peng t: KAREN SIMONS Unit #:[id number] Ordering MD: DEREJE NUNEZ MD :1950 Procedure: DEXA Bone Density Axial Age:71 Location: XRAY ExamDate: 05/26/22 Status: REG CLIRoom/Bed: Primary MD: YONATAN MAC DO PatientAcct #: [id number] Order:DEXABONE Additional Copy: DEREJE NUNEZ MD YONATAN MAC DO - EXAM: BONE MINERAL DENSITY PROCEDURE: The bone mineral density (BMD) of the spine and proximal leftfemur was determined using an external X-ray source ([employer]). SITE: [facility] COMPARISON: Prior BMD of 2020 FINDINGS: [...] SIGNED BY: Arias Miranda MD 05/26/2022 11:22 [id number] Dereje Nunez MD IMG DXA PROCEDURES Final [...] Documents on File Type Date Recorded Patient Validation Consultant Expl anation Health Care Proxy 03/02/2022 03/02/2022 Health Care Proxy 08/07/2021 07/24/2021 Care Teams Cylinder Worker Relationship Specialty Start Date End Date Horace Stovall MD [address] [place] [id number] PCP - General Internal Medicine 08/01/23
--- OUTSIDE RECORDS SUMMARY | 2024-06-14 11:20 | XMS_ITS | Clinical Summary ---
Author Organization [facility] Address [address] [facility] [address] [address] [address] Care Team Providers Care Powerhouse Mechanic Apprentice Name Role Phone No, Pcp IMPROVEMENT SPEC Primary Care Provider Unavailabl e Allergies Active [...] Adults 18 yrs or above (or HM Modifier)([facility]) 1950 Hepatitis C Virus Infection in Adolescents and Adults: Screening (or Modifier) ([facility]) 08/04/1967 [facility] Screening Reminder: Miriam brooks for all adults ([facility]) 08/04/1967 Tobacco Smoking Cessation: i n Adults excluding Women: Behavioral and Pharmacotherapy Interventions ([facility]) 08/04/1967 DTaP/Tdap/Td Vaccines ([facility]) (1 - Tdap) 1968 Colorectal Cancer Screening 45 -75 Yrs (or HM Modifier) 1994 Colorectal Cancer: FLEXIBLE SIGMOIDOSCOPY Screening every 5 yrs 1994 Colorectal Cancer: Fecal Imm unochemical Test (FIT) Annually [facility] 1994 Colorectal Cancer: High-sens itivity gFOBT Screening Annually [facility] 1994 Colorectal Cancer: Stool Col oguard Screening every 3 yrs 1994 Colorectal Cancer:CT Colonog kenya Screening every 5 yrs 1994 Lipid Screening: Every 5 yrs for Women aged 45+ (or HM Modifier) ([facility]) 08/04/1995 Breast Cancer: Screening Miriam ually age 50-74 yrs (or HM Modifier)([facility]) 08/04/1999 Pneumococcal Vaccination Scr eening: Patients 50+ yrs of age ([facility]) (1 of 1 - PCV) 08/04/1999 Zoster/Shingles Vaccine Seri es Screening: Adults aged 18+ yrs (or HM Modifiers)([facility]) (1 of 2) 08/04/1999 Osteoporosis Screening to Pr event Fractures: Women aged 65 years+ ([facility]) 2014 COVID-19 Vaccine Screening: Initial Series and Booster Status ([facility]) (2023- season) 2023 RSV Vaccines (1 - 1-dose 75+ series) 2024 Flu Vaccination: Ages 65+: Y early High Dose Recommended (or Modifier)([facility]) 09/21/2024 10/31/2017, 7 [employer] Not on file Insurance MEDICARE Care Teams Powerhouse Mechanic Apprentice Relationship Specialty Start Date End Date No, Pcp, IMPROVEMENT SPEC N/A Do not use PCP - General 11/21/19
--- OUTSIDE RECORDS SUMMARY | 2024-06-14 11:20 | XMS_ITS | Patient Health Record ---
Author Organization [facility] Address [address] [place], [place] [id number] Care Team Providers Care Slip Box Changer Name Role Phone Molly SERNA, Lee Primary Care Provider Michael Leonard Unavailable [phone] Tono Josh Unavailable Unavailable Allergies Allergen (clinical drug ingredient) Drug/Non Drug Allergy documented on EMR Reaction Allergy Type Onset Date Status amlodipine Norvasc rash Drug Allergy Active angiotensin-converting enzyme inhibitor (FN) SKYLAR Inhibitors Unknown Drug Allergy Acti ve Reason For Referral No Information Medications Medication SIG (Take, Route, Frequency, Duration) Notes Start Date End Date Status Alendronate Sodium 35 MG 1 tablet 30 min utes before the first food, beverage or medicine of the day with plain water Orally for 30 day(s) Active Super B Complex Acti ve Calcium + D 500-1000-40 MG-UNT-MCG as directed Orally Active SUMAtriptan Succinate 25 MG 1 tablet at least 2 hours between doses as needed Orally Twice a day as needed Active prevastin 40mg one capsual once a day Active Topiramate 25 MG 1 tablet Orally Once a day for 30 day(s) twice a day Active Fluticasone Propionate 50 MCG/ACT 1 spray in each nostril Nasally Once a day for 90 days Active Trelegy Ellipta 200-62.5-25 MCG/ACT 1 puff Inhalation Once a day for 30 days Active Albuterol Sulfate HFA 108 (90 Base) MCG/ACT 1 puff as needed Inhalation every 4 hrs Active Levoxyl 75 MCG 1 tablet in the morning on an empty stomach Orally Once a day Active Losartan Potassium 50 MG 1 tablet Orally Once a day for 30 day(s) Active Social History Tobacco Use: Social History Observation Description Date Details (start date - stop date) Never Smoker NA - NA Tobacco Question Answer Notes Are you a: never smoker Additional Findings: Tobacco Non-User Does not u se moist powdered tobacco Problems Problem Type SNOMED Code ICD Code Onset Dates Problem Status W/U Status Risk Notes Problem Allergic rhinitis (88090393) Allergic rhinitis (J30.9) Active confirmed Problem Moderate persistent asthma (980636010) Moderate persistent asthma (J45.40) Active confirmed Vital Signs Heart Rate 68 /min 05/09/2024 Respiratory Rate 16 /min 05/09/2024 Blood pressure diastolic 70 mm Hg 05/09/2024 Height 66 in 05/09/2024 Blood pressure systolic 112 mm Hg 05/09/2024 Weight 125 lbs 05/09/2024 BMI 20.17 kg/m2 05/09/2024 Encounters Encounter Location Date Provider Diagnosis [facility] [address] [place] [address] 10/28/2023 Michael Gant Moderate persistent asthma J45.40 and Allergic rhinitis J30.9 [facility] [address] [place] [address] 05/09/2024 Michael Gant Moderate persistent asthma J45.40 and Allergic rhinitis J30.9 Assessments Encounter Date Diagnosis (ICD Code) Assessment Notes Treatment Notes Treatment Clinical Notes Section Notes 10/28/2023 Moderate persistent asthma (ICD-10 - J45.40) Will require pneumonia vaccination if has not received yet also influenza vaccination annually. Also had RSV vaccine 05/09/2024 Moderate persistent asthma (ICD-10 - J45.40) Will require pneumonia vaccination if has not received yet also influenza vaccination annually. Also had RSV vaccine 05/09/2024 Allergic rhinitis (ICD-10 - J30.9) 10/28/2023 Allergic rhinitis (ICD-10 - J30.9) Plan Of Treatment Pending Test Test Name Order Date Chest X-Ray PA and Lateral 08/04/2021 Next Appt Details Provider Name:Michael Gant, 11/14/2024 10:45:00 AM, [address] [place], [address], Insurance Providers Payer Name Payer Address Payer Phone Subscriber Number Group Number Insured Name Patient Relationship to Insured Coverage Start Date Coverage End Date 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
--- OUTSIDE RECORDS SUMMARY | 2024-06-14 11:20 | XMS_ITS ---
Author Organization [facility] Address [address] [place], [place] [address] Care Team Providers Care Integrated Marketing Specialist Name Role Phone Lee Barnes MD Primary Care Provider Michael Leonard Unavailable [phone] Josh Power Unavailable Unavailable Allergies Allergen (clinical drug ingredient) Drug/Non Drug Allergy documented on EMR Reaction Allergy Type Onset Date Status amlodipine Norvasc rash Drug Allergy Active angiotensin-converting enzyme inhibitor (FN) SKYLAR Inhibitors Unknown Drug Allergy Acti ve REASON FOR VISIT 3 Month Asthma Follow up Medications Medication SIG (Take, Route, Frequency, Duration) [...] Once a day for 30 day(s) Active Super B Complex Acti ve Calcium + D 500-1000-40 MG-UNT-MCG as directed Orally Active SUMAtriptan Succinate 25 MG 1 tablet at least 2 hours between doses as needed Orally Twice a day as needed Active prevastin 40mg one capsual once a day Active Topiramate 25 MG 1 tablet Orally Once a day for 30 day(s) twice a day Active Alendronate Sodium 35 MG 1 tablet 30 min utes before the first food, beverage or medicine of the day with plain water Orally for 30 day(s) Active Social History Tobacco Use: Social History Observation Description Date Details (start date - stop date) Never Smoker NA - NA Tobacco Question Answer Notes Are you a: never smoker Additional Findings: Tobacco Non-User Does not u se moist powdered tobacco Vital Signs Weight 125 lbs 05/09/2024 Blood pressure systolic 112 mm Hg 05/10/19 25 Blood pressure diastolic 70 mm Hg 025 Heart Rate 68 /min 05/09/2024 Respiratory Rate 16 /min 05/09/2024 Height 66 in 05/09/2024 BMI 20.17 kg/m2 05/09/2024 Encounters Encounter Location Date Provider Diagnosis [facility] [address] [place] [address] 05/09/2024 Michael Gant Moderate persistent asthma J45.40 and Allergic rhinitis J30.9 Assessments Encounter Date Diagnosis (ICD Code) Assessment Notes Treatment Notes Treatment Clinical Notes Section Notes 05/09/2024 Moderate persistent asthma (ICD-10 - J45.40) Will require pneumonia vaccination if has not received yet also influenza vaccination annually. Also had RSV vaccine 05/09/2024 Allergic rhinitis (ICD-10 - J30.9) Plan Of [...] Up: 6 Months, Reason: Provider Name:Michael Gant, 11/14/2024 10:45:00 AM, [address] [place], [address], Progress Notes * FEROZ SIMONSDOB:1950 (73 yo F)Acc No.[id number]:05/09/2024 Patient:?FEROZ SIMONS [facility]1950???Age:73 Y???Sex:Female D ate:05/09/2024 Address:[address] [place] [address], [place] [facility] Pcp:Lee Barnes MD Subjective: * Chief Complaints: * ???3 Month Asthma Follow up * HPI: ???Asthma:?73 year old female presents with c/o Asthma.?Since the last visit?the shortness of breath is stable with the use of Trelegy.?The cough is?improved.?The shortness of breath is?mild occuring with climbing up one flight of stairs.?Bronchodilator use is now?albuterol rarely only few times per year.?Patient denies?chest pain chills fever hemoptysis.? * ROS:?follow [...] History:?Father: dece ased, Bladder cancer, diagnosed with Hypertension, Cancer, Diabetes mellitus.?Mother: , diagnosed with Hypertension, Diabetes mellitus.? * Social History:?Marital stat us: . 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 Occup. exposure: None. Tobacco?Are you a:?never smoker,?Additional Findings: Tobacco Non-User?Does not use moist powdered tobacco.?Alcohol: None. Recreational drug use: None. * Medications:?TakingAlendrona te Sodium 35 MG Tablet 1 tablet 30 [...] Activated 1 puff Inhalation Once a day Albuterol Sulfate HFA 108 (90 Base) MCG/ACT Aerosol Solution 1 puff as needed Inhalation every 4 hrs Medication List reviewed and reconciled with the patientTaking Alendronate Sodium 35 MG Tablet 1 tablet [...] Activated 1 puff Inhalation Once a day Taking Albuterol Sulfate HFA 108 (90 Base) MCG/ACT Aerosol Solution 1 puff as needed Inhalation every 4 hrs Medication List reviewed and reconciled with the patient * Allergies:?Norvasc: rashACE Inhibitorsno[Allergies Verified] Objective: * Vitals:?Wt: 125, BP:112/70, HR: 68, RR: 16, O2 sat: 100%RA, Ht: 66, BMI:20.17. * Examination: ???General Physical Exam: ?General Appearance:?in [...] Assessment: 1.?Moderate persistent asthm a - J45.40 (Primary)???2.?Allergic rhinitis - J30.9??? Plan: * Treatment: 2.?Allergic rhinitis? Continue Fluticasone Propionate Suspension, 50 MCG/ACT, 1 spray in each nostril, Nasally, Once a day, 90 days, 3, Refills 3.?? * Procedure Codes:?G2211 Compl ex e/m visit add on * Preventive Medicine:? ??Counseling:?Fall Risk ?Have you had any falls in the past year??Yes,?Have you had any falls with injury in the past year??Yes,?Assessment:?Performed.? * Follow Up:?6 Months * Images: * Sign off status: Completed true * Provider:?Michael Gant MD, [facility] Date:? 05/09/2024 Generated for Radha malave/Sonali/eTransmitting on:?06/14/2024 11:20 AM EDT History and Physical Notes * HPI (History [...] Bronchodilator use is now albuterol rare ly only few times per year Asthma Examination Category Sub-Category Detail Notes Category [...]
--- OUTSIDE RECORDS SUMMARY | 2024-06-14 11:20 | XMS_ITS ---
Author Organization [facility] Address [address] [place], [place] [address] Care Team Providers Care Equestrian Trainer Name Role Phone Lee Barnes MD Primary Care Provider Michael Leonard Unavailable [phone] Josh Power Unavailable Unavailable Allergies Allergen (clinical [...] Blood pressure systolic 118 mm Hg 04/27/19 Blood pressure diastolic 74 mm Hg 024 Heart Rate 88 /min 04/27/2023 Respiratory Rate 16 /min 04/27/2023 Height 66 in 04/27/2023 BMI 20.5 kg/m2 04/27/2023 Encounters Encounter Location Date Provider Diagnosis [facility] [address] [place] [address] 04/27/2023 Michael Gant Moderate persistent asthma J45.40 [...] Name:Michael Gant, 11/14/2024 10:45:00 AM, [address] [place], [address], Progress Notes * FEROZ SIMONSDOB:1950 (72 yo F)Acc No.[id number]:04/27/2023 Patient:?FEROZ SIMONS Provider:?Michael Gant MD, [facility] :1950???Age:72 Y???Sex:Female D ate:04/27/2023 Address:[address] [place], [place] [id number] Pcp:Lee Barnes MD Subjective: * Chief Complaints: [...] status: Completed true * Provider:?Michael Gant MD, [facility] Date:? 04/27/2023 Generated for Radha malave/Sonali/eTransmitting on:?06/14/2024 11:20 AM [...]
--- OUTSIDE RECORDS SUMMARY | 2024-06-14 11:20 | XMS_ITS | Clinical Summary ---
Author Organization [address] [facility] Address [address] [place] [address] Phone Care Team Providers Care Fur Examiner Name Role Phone Physician, Pcp Unknown Primary Care Provider Sara vailable Encounters Date Type Department Care Team Description 03/22/2024 Lab Requisition [facility] - Main Lab [address] [facility] [place] [address] Joshua Arreaga MD Gross hematuria [...] Vaccine ( - 2023-2 5 season) 2023 Colorectal Cancer Screening: Colonoscopy 03/22/2024 Depression Screening 03/22/2024 Falls Risk Assessment 03/22/2024 Hepatitis C Screening 03/22/2024 Medicare Annual Wellness Visit 03/22/2024 Osteoporosis Screening (Bone Density Screening) 03/22/2024 Social Influencers of Health Screening 03/22/2024 RSV Immunization Adult Patie nts (1 - 1-dose 75+ series) 2024 Influenza Vaccine (Season Ended) 2024 HIB Vaccines Aged Out No longer [...] age to complete this topic Meningococcal B Vaccine Aged Out No l onger eligible based on patient's age to complete [...] AM EST) Final Diagnosis A. Urine, Voided, ([id number]): Negative for high grade urothelial carcinoma. Acute inflammatory cells are present. 04/02/2024 4:56 PM [facility] Clinical Information Gross hematuria R31.0 Urine cytology with reflex UroVysion ([facility]) 04/02/2024 4:56 PM [facility] Gross Description A. Urine, Voided, ([id number]): Received is one ThinPrep slide for cytology. 04/02/2024 4:56 PM [facility] Disclaimer Unless otherwise specified, all tissue is 10% NB formalin fixed and paraffin embedded. Technical pathology services provided by [facility] at [address], [place] [address] (CLIA #[id number]/Trino Retana MD, [employer]) 04/02/2024 4:56 PM [facility] Tissue Urine specimen from urethra / Unknown 03/20/2024 03/22/2024 2:13 PM EST us Joshua Arreaga MD LAB PATHOLOGY ORDERABLES Final Result [facility] [address] [place] [address], [place] [phone] from Last 3 Months Insurance [employer] MEDICARE [employer] MEDICARE Care Teams Fur Examiner Relationship Specialty Start Date End Date Physician, Pcp Unknown PCP - General 03/22/24
--- OUTSIDE RECORDS SUMMARY | 2024-06-14 11:20 | XMS_ITS ---
Author Organization [facility] Address [address] [place], [place] [id number] Care Team Providers Care Special Warfare Operator Name Role Phone Lee Barnes MD Primary Care Provider Michael Leonard Unavailable [phone] Josh Power Unavailable Unavailable Allergies Allergen (clinical [...] Provider Diagnosis [facility] [place] [address] [place] [address] 10/28/2023 Michael Gant Moderate persistent asthma J45.40 [...] Name:Michael Gant, 11/14/2024 10:45:00 AM, [address] [place], [address], Progress Notes * FEROZ SIMONSDOB:1950 (73 yo F)Acc No.[id number]:10/28/2023 Patient:?FEROZ SIMONS Provider:?[facility]1950???Age:73 Y???Sex:Female D ate:10/28/2023 Address:[address] [place] [address], [place] [facility] Pcp:Lee Barnes MD Subjective: * Chief Complaints: [...] status: Completed true * Provider:?Michael Gant MD, [facility] Date:? 10/28/2023 Generated for Radha malave/Sonali/eTransmitting on:?06/14/2024 11:20 AM [...]
== END 2024-06-14 10:00 | disposition home or self-care (01) ==
LOC: HO.MAMMO 09:59
PROVIDERS: PCP Physician Assistant; Visit Provider Obstetrics & Gynecology
DX: Z13.820 Encounter for screening for osteoporosis (principal); Z78.0 Asymptomatic menopausal state
CPT/HCPCS: 77080

== ENCOUNTER → 2024-06-14 10:00 | Outpatient (BNV) | payer OTHER, SELFPAY | PROVIDERS: PCP Physician Assistant; Visit Provider Radiology Diagnostic Radiology | DX: E28.39 Other primary ovarian failure (principal) | CPT/HCPCS: 77080 ==

== ENCOUNTER 2024-06-25 14:29 | Outpatient (AMB) | payer OTHER, SELFPAY ==
--- NOTE | 2024-06-25 14:36 | A.OFFPC_ITS ---
Vital Signs 06/25/24 14:42 Height 5 ft 5 in Weight 124 lb 2 oz BMI 20.7 BP 132/70 Blood Pressure Location Lt brachial Position Sitting Pulse 64 Pulse Source Pulse Oximeter Temp 97.3 F Temp Source Temporal Artery Scan Pulse Oximetry (%) 97 Oxygen Delivery Method Room Air Intake Visit Reasons: rt upper quartrant pain Furniture Finisher Required: No Accompanied by: Self / Same As Patient Allergies SKYLAR Inhibitors Adverse Reaction (Mild, Verified 06/25/24 15:00) Cough amlodipine [From [facility]] Adverse Reaction (Mild, Verified 06/25/24 15:00) Rash Medication List - Last Reconciled 06/25/24 by Alvaro Butts PA-C albuterol sulfate 90 mcg/actuation (Ventolin HFA) 2 puffs inhalation Q6H 90 days aspirin-acetaminophen (buffer) 250-250 mg tabs PO PRN calcium carbonate-vitamin D3 250 mg-3.125 mcg (125 unit) (Oyster Shell Calcium- Vitamin D3) 1 tab PO BID 90 days fluticasone propionate 50 mcg/actuation 1 spray intranasal DAILY 90 days ykgldxayjgu-gjlqnaywa-ilaafqbp 200-62.5-25 mcg (Trelegy Ellipta) 1 inh inhalation DAILY 90 days levothyroxine (Levoxyl) 75 mcg PO DAILY 90 days losartan 50 mg PO DAILY 90 days meloxicam 15 mg PO DAILY PRN 14 days pravastatin 40 mg PO BEDTIME 90 days sumatriptan succinate 25 mg orally PRN; 90 days topiramate XR 25 mg PO BID 90 days Tobacco use date assessed: 06/25/24 Fall risk assessment: No Falls in past year Last assessed Fall Risk: 06/25/24 Dental Screening Dental Screen Date: 06/25/24 Did you have a dental visit in the last 12 months?: Yes Did you have a dental problem in the last 6 months where you did not have access to dental care?: No Was dental information given to patient?: Patient has dentist HPI rt upper quartrant pain HPI Details The patient is a 73-year-old female presenting with unintentional weight loss and right upper quadrant (RUQ) pain. Following a colonoscopy, the patient experienced unexplained weight loss by 5 pounds, which she struggled to regain despite increased nutritional efforts. An episode of severe RUQ pain occurred after consumption of fried food, persisting for over a week and easing into continuous soreness next to the right ribs. In conjunction with this pain, the patient reports teeth discoloration, a new and worrying symptom. Although she suspected a possible correlation with gastrointestinal issues like celiac disease, she does not present GI symptoms such as diarrhea or gas. 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 Annual prophylactic checks with a urologist noted no bladder cancer this year, given her family?s predisposition. Regular check-ups are advised for ongoing health monitoring. [facility] Medical History Mild intermittent asthma, uncomplicated Personal history of colonic polyps Lesion of throat SI joint arthritis Chronic osteoarthritis Osteoarthritis of sacroiliac joint Osteoarthritis of right hip Nabothian cyst Lumbar spondylosis SHEBA positive Colon polyps Closed fracture of right ankle B12 deficiency Asthma Migraine Hyperlipidemia Hypertension Hypothyroidism Allergic rhinitis Osteopenia Surgical History History of hysterectomy, supracervical H/O colonoscopy History of cataract surgery S/P left knee arthroscopy History of hip surgery Family History Father Bladder cancer Brother Bladder cancer Social History Housing: House Patient Tobacco Use Status: Never used Tobacco e-Cigarette/Vaping Use: Never Used service: No Current occupational status: retired Current occupation: rt handed Cognitive needs: No Hearing needs: No Vision needs: Yes Questionnaire PHQ-9 Over the last 2 weeks, how often have you been bothered by any of the following problems? 1. Little interest or pleasure in doing things: not at all 2. Feeling down, depressed, or hopeless: not at all 3. Trouble falling or staying asleep, or sleeping too much: not at all 4. Feeling tired or having little energy: not at all 5. Poor appetite or overeating: not at all 6. Feeling bad about yourself - or that you are a failure or have let yourself or your family down: not at all 7. Trouble concentrating on things, such as reading the newspaper or watching television: not at all 8. Moving or speaking so slowly that other people could have noticed. Or the opposite - being so fidgety or restless that you have been moving around a lot more than usual: not at all 9. Thoughts that you would be better off or of hurting yourself in some way: not at all Total score: 0 Depression Screening Interpretation: Negative Depression Screening Done: Yes [id number] - PHQ-9 Billing: Yes Source: Developed by Drs. Arias Darden, Uzma Quintero, Judson Rascon and colleagues, with an educational zhane from [employer]. Thrive Questionnaire Date Thrive assessed: 06/25/24 I am a: Patient What is your living situation today?: I have a steady place to live Within the past 12 months, did the food you bought not last and you didn't have the money to get more?: Never true Within the past 12 months, did you worry whether your food would run out before you got money to buy more?: Never true Do you have trouble paying for medicines?: No Do you have trouble getting transportation to medical appointments?: No Do you have trouble paying your heating and electricity bill?: No Do you have trouble taking care of your child, family member or friend?: No Do you have trouble with day-to-day activities such as bathing, preparing meals, shopping, managing finances, etc.?: No Are you currently unemployed and looking for a job?: No Are you interested in more education?: No Please select the resources that you would like help with: None Currently or been in a relationship where the following occur: No concerns reported THRIVE Score: 0 AUDIT C Alcohol Use Questionnaire (AUDIT-C) 1. How often do you have a drink containing alcohol?: Never 3. How often do you have six or more drinks on one occasion?: Never Total Score: 0 Score Reviewed/Action Taken: No SO-7 AMB Questionnaire SO-7 Date SO - 7 assessed: 06/25/24 Feeling nervous, anxious, or on edge: 0 = Not at all Not being able to stop or control worryin = Not at all Worrying too much about different things: 0 = Not at all Trouble relaxin = Not at all Being so restless that it is hard to sit still: 0 = Not at all Becoming easily annoyed or irritable: 0 = Not at all Feeling afraid as if something awful might happen: 0 = Not at all Total SO-7 score (0-4 normal; 5-9 mild; 10-14 moderate; 15-21 severe): 0 Source: Developed by Drs. Arias Darden, Uzma Quintero, Judson Rascon and colleagues, with an educational zhane from [employer]. SO-7 Assessment Billing SO-7 Assessment Tool: SO-7 Assessment 39549 Review of Systems Const Denies headache(s) Eyes Denies loss of vision ENT Denies vertigo, Denies dizziness, Denies headache(s) and Denies sore throat Card Denies chest pain, Denies leg edema and Denies lightheadedness Resp Denies cough, Denies hemoptysis and Denies wheezing GI Denies abdominal pain, Denies melena, Denies constipation, Denies diarrhea and Denies vomiting Denies urinary frequency, Denies dysuria and Denies urinary urgency Musc Denies arthralgias, Denies joint swelling, Denies numbness and Denies tingling Neuro Denies Abnormal speech present, Denies behavioral changes, Denies vertigo, Denies dizziness, Denies headache(s), Denies loss of vision, Denies memory loss, Denies numbness and Denies tingling Psych Denies anxiety, Denies behavioral changes, Denies depression, Denies memory loss and Denies panic attacks Nayan/Lymph Denies easy bleeding and Denies easy bruising Aller/Immun Denies wheezing Physical exam (Primary Care) Vital Signs: Last Vital Signs Temp 97.3 F 06/25/24 14:42 Pulse 64 06/25/24 14:42 BP 132/70 06/25/24 14:42 Pulse Ox 97 06/25/24 14:42 Oxygen Delivery Method Room Air 06/25/24 14:42 BMI result Body Mass Index 20.7 Tobacco/Smoking Status: Tobacco use Status Tobacco use date assessed 06/25/24 06/25/24 14:54 Patient Tobacco Use Status Never used Tobacco 06/25/24 14:37 e-Cigarette/Vaping Use Never Used 06/25/24 14:37 PHQ-9: PHQ-9 Score PHQ-9: Total score 0 06/25/24 15:03 Depression Screening Interpretation: Negative Thrive Assessment: Date of Thrive Assessment Date Thrive assessed 06/25/24 06/25/24 14:49 Currently or been in a relationship where the following occur: No concerns reported Const General: healthy appearing, no acute distress, alert and awake Nutritional Appearance: well nourished Orientation/consciousness: oriented to person, oriented to place and oriented to time HENMT Ears: TM's normal bilaterally General nose exam: Normal nasal mucous membranes and turbinates present Eyes Conjunctivae: conjunctivae normal Sclerae: sclerae normal Pupils: Equal, round and reactive pupils present Neck Neck: Yes no lymphadenopathy and Yes no JVD Thyroid: Thyroid normal Carotids: no bruits Resp Effort & Inspection: normal respiratory effort and not tachypneic Auscultation: no crackles, no rales, no rhonchi and no wheezes Cardio Rate: regular rate Rhythm: regular rhythm Heart sounds: no murmurs and normal S1 and S2 GI Palpation (GI): Soft to palpation, Tenderness to palpation present (GI) in the RUQ, no hepatomegaly and no splenomegaly Auscultation: normal bowel sounds Skin General skin exam: no rashes or lesions noted and dry skin Neuro General: oriented to person, oriented to place and oriented to time Cranial nerves: Yes Equal, round and reactive pupils present Speech: No Abnormal speech present Gait exam (Neuro): Normal gait present Motor exam (neuro): no tremor noted Extrem Right upper extremity: full ROM Left upper extremity: full ROM Right lower extremity: full ROM; no edema Left lower extremity: full ROM; no edema Psych Mental Status: mental status grossly normal Speech and movement: Normal speech and movement present Affect: normal affect Attitude: cooperative Thought process: Normal thought process present Coding Level of Care Code Est Pt Level 3 (13693) Diagnoses RUQ abdominal pain R10.11 Additional Codes SO-7 Assessment Billing - SO-7 Assessment Tool: SO-7 Assessment 83905 ([id number]) PHQ-9 - 62854 - PHQ-9 Billing: Yes ([id number]) Assessment & Plan Assessment & Plan (1) RUQ abdominal pain: Code(s): R10.11 - Right upper quadrant pain Category: Medical Plan: Abdominal ultrasound to check for gallstones is planned. Dietary changes have been made to minimize symptoms. Orders: Orders Transglutaminase IgA 06/25/24 R10.11 - Right upper quadrant pain, R14.0 - Abdominal distension (gaseous) Lipase 06/25/24 R10.11 - Right upper quadrant pain UA CC w/rflx Micro + Cult 06/25/24 R30.0 - Dysuria, Z80.52 - Family history of malignant neoplasm of bladder Complete Blood Count no Diff 06/25/24 R10.11 - Right upper quadrant pain Transglutaminase Ab IgG 06/25/24 R10.11 - Right upper quadrant pain, R14.0 - Abdominal distension (gaseous) Comprehensive Met. Panel 06/25/24 R10.11 - Right upper quadrant pain
[2024-06-25 14:42] VITALS: BP 132/70; PULSE 64; TEMP 36.3; O2SAT 97; BMI 20.7
--- OUTSIDE RECORDS SUMMARY | 2024-06-25 16:01 | XMS_ITS | Referral Summary ---
Author Organization [facility] Address [address] [place] [address] Care Team Providers Care Jacquard Loom Fixer Name Role Phone Horace Stovall MD Primary [...] Not on file Procedures * Due to [place] Radio[employer] law, this organization might not be sharing [...] to Health Maintenance Results * Due to [place] Radio[employer] law, this organization might not be sharing [...] of this study. COMPARISON Compared to: 10/29/2021 [facility] Screening Digital Mammogram and 10/20/2020 [facility] Screening Digital Mammogram Bilateral Breast [...] OF RADIOLOGY Patient: KAREN SIMONS ?Unit #: [id number] Ordering MD: DEREJE NUNEZ MD ? : [...] was determined using an external X-ray source ([employer]). SITE: ??[facility] COMPARISON: Prior BMD of 2021 FINDINGS: L1-L4: [...] ??Arias Miranda MD 05/26/2022 11:22 AM ?? [id number] Procedure Note Arias Miranda MD - 11/17/2022 DEPARTMENTOF RADIOLOGY Peng t: KAREN SIMONS Unit #:[id number] Ordering MD: DEREJE NUNEZ MD :1950 Procedure: DEXA Bone Density Axial Age:71 Location: XRAY ExamDate: 05/26/22 Status: REG CLIRoom/Bed: Primary MD: YONATAN MAC DO PatientAcct #: [id number] Order:DEXABONE Additional Copy: DEREJE NUNEZ MD, YASIR DO - EXAM: BONE MINERAL DENSITY PROCEDURE: The bone mineral density (BMD) of the spine and proximal leftfemur was determined using an external X-ray source ([employer]). SITE: [facility] COMPARISON: Prior BMD of 2020 FINDINGS: [...] SIGNED BY: Arias Miranda MD 05/26/2022 11:22 [id number] us Dereje Nunez MD IMG DXA PROCEDURES [...] or Most Recently Relevant to Health Maintenance Insurance [facility] MCR Advance Directives Documents on File Type Date Recorded Patient Transit Coach Operator Expl anation Health Care Proxy 03/02/2022 03/02/2022 Health Care Proxy 08/07/2021 07/24/2021 Care Teams Jacquard Loom Fixer Relationship Specialty Start Date End Date Horace Stovall MD [address] [place] [address] PCP - General Internal Medicine 08/01/23
--- OUTSIDE RECORDS SUMMARY | 2024-06-25 16:02 | XMS_ITS | Patient Health Record ---
Author Organization [facility] Address [address] [place], [place] [address] Care Team Providers Care General Merchandise Manager Name Role Phone Molly SERNA, Lee Primary Care Provider Michael Leonard Unavailable [phone] Tono Josh Unavailable Unavailable Allergies Allergen (clinical [...] W/U Status Risk Notes Problem Allergic rhinitis (67180054) Allergic rhinitis (J30.9) Active confirmed Problem Moderate persistent asthma (789057572) Moderate persistent asthma (J45.40) Active confirmed Vital Signs Heart Rate 68 /min 05/09/2024 Respiratory Rate 16 /min 05/09/2024 Blood pressure diastolic 70 mm Hg 05/09/2024 Height 66 in 05/09/2024 Blood pressure systolic 112 mm Hg 05/09/2024 Weight 125 lbs 05/09/2024 BMI 20.17 kg/m2 05/09/2024 Encounters Encounter Location Date Provider Diagnosis [facility] [place] [address] [place] [address] 10/28/2023 Michael Gant Moderate persistent asthma J45.40 and Allergic rhinitis J30.9 [facility] [place] [address] [place] [address] 05/09/2024 Michael Gant Moderate persistent asthma J45.40 [...] Name:Michael Gant, 11/14/2024 10:45:00 AM, [address] [place], [address], Insurance Providers Payer Name Payer Address Payer Phone Subscriber Number Group Number Insured Name Patient Relationship to Insured Coverage Start Date Coverage End Date [facility] [address] [place] [address] [id number] FEROZ SIMONS Self - patient is the insured Medical (General) History Medical History History ICD Code Hyperlipidemia Hypothyroidism Back pain Migraine headache G43.909 Allergic rhinitis J30.9 Moderate persistent asthma J45.40 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
--- OUTSIDE RECORDS SUMMARY | 2024-06-25 16:02 | XMS_ITS | Clinical Summary ---
Author Organization [facility] Address [address] [place] [address] Care Team Providers Care Swatch Paster Name Role Phone Horace Stovall MD Primary [...] complete this topic Procedures * Due to [place] [employer] law, this organization might not be sharing [...] to Health Maintenance Results * Due to [place] [employer] law, this organization might not be sharing [...] 10/29/2021 [facility] Screening Digital Mammogram and 10/20/2020 [facility] Screening Digital Mammogram Bilateral Breast [...] OF RADIOLOGY Patient: KAREN SIMONS ?Unit #: [id number] Ordering MD: DEREJE NUNEZ MD ? : [...] was determined using an external X-ray source ([employer]). SITE: ??[facility] COMPARISON: Prior BMD of 2020 FINDINGS: [...] ??Arias Miranda MD 05/26/2022 11:22 AM ?? [id number] Procedure Note Arias Miranda MD - 11/17/2022 DEPARTMENTOF RADIOLOGY Peng t: KAREN SIMONS Unit #:[id number] Ordering MD: DEREJE NUNEZ MD :1950 Procedure: DEXA Bone Density Axial Age:71 Location: XRAY ExamDate: 05/26/22 Status: REG CLIRoom/Bed: Primary MD: YONATAN MAC DO PatientAcct #: [id number] Order:DEXABONE Additional Copy: DEREJE NUNEZ MD YONATAN MAC DO - EXAM: BONE MINERAL DENSITY PROCEDURE: The bone mineral density (BMD) of the spine and proximal leftfemur was determined using an external X-ray source ([employer]). SITE: [facility] COMPARISON: Prior BMD of 2020 FINDINGS: [...] SIGNED BY: Arias Miranda MD 05/26/2022 11:22 [id number] Dereje Nunez MD IMG DXA PROCEDURES Final [...] Most Recently Relevant to Health Maintenance Insurance [facility] MCR Advance Directives Documents on File Type Date Recorded Patient Telesales Team Leader Expl anation Health Care Proxy 03/02/2022 03/02/2022 Health Care Proxy 08/07/2021 07/24/2021 Care Teams Swatch Paster Relationship Specialty Start Date End Date Horace Stovall MD [address] [place] [address] PCP - General Internal Medicine 08/01/23
--- OUTSIDE RECORDS SUMMARY | 2024-06-25 16:02 | XMS_ITS | Clinical Summary ---
Author Organization [facility] Address [address] [place] [address] Phone Care Team Providers Care Welding Equipment Repairer Name Role Phone Physician, Pcp Unknown Primary Care Provider Sara vailable Social History Tobacco Use Types Packs/Day Years [...] on patient's age to complete this topic Insurance [employer] MEDICARE [employer] MEDICARE Care Teams Welding Equipment Repairer Relationship Specialty Start Date End Date Physician, Pcp Unknown PCP - General 03/22/24
--- OUTSIDE RECORDS SUMMARY | 2024-06-25 16:02 | XMS_ITS | Encounter Summary ---
Author Organization [facility] Address [address] [place] [address] Care Team Providers Care Grey Iron Molder Name Role Phone Physician, Pcp Unknown Primary Care Provider Sara vailable Encounter Details Date Type Department Care Team (Late st Contact Info) Description 03/22/2024 Lab Requisition [facility] - Main Lab [address] [facility] [place] [address] Joshua Arreaga MD [address] [facility] [address] [place] [address] Gross hematuria Social History Tobacco [...] AM EST) Final Diagnosis A. Urine, Voided, ([id number]): Negative for high grade urothelial carcinoma. Acute inflammatory cells are present. 04/02/2024 4:56 PM EST [facility] Clinical Information Gross hematuria R31.0 Urine cytology with reflex UroVysion ([facility]) 04/02/2024 4:56 PM EST [facility] Gross Description A. Urine, Voided, ([id number]): Received is one ThinPrep slide for cytology. 04/02/2024 4:56 PM EST [facility] Disclaimer Unless otherwise specified, all tissue is 10% NB formalin fixed and paraffin embedded. Technical pathology services provided by [facility] at [address], [place] [address] (CLIA #[id number]/Trino Retana MD, Tacking Machine Operator) 04/02/2024 4:56 PM EST [facility] Tissue Urine specimen from urethra / Unknown 03/20/2024 03/22/2024 2:13 PM EST us Joshua Arreaga MD LAB PATHOLOGY ORDERABLES Final Result [facility] [address] [place] [address], documented in this encounter Visit Diagnoses Diagnosis Gross hematuria documented in this encounter Care Teams Grey Iron Molder Relationship Specialty Start Date End Date Physician, Pcp Unknown PCP - General 03/22/24 documented as of this encounter
--- OUTSIDE RECORDS SUMMARY | 2024-06-25 16:02 | XMS_ITS ---
Author Organization [facility] Address [address] [place], [place] [address] Care Team Providers Care Fur Puller Name Role Phone Lee Barnes MD Primary Care Provider Michael Leonard Unavailable [phone] Josh Power Unavailable Unavailable Allergies Allergen (clinical [...] Provider Diagnosis [facility] [place] [address] [place] [address] 05/09/2024 Michael Gant Moderate persistent asthma J45.40 [...] Name:Michael Gant, 11/14/2024 10:45:00 AM, [address] [place], [address], Progress Notes * FEROZ SIMONSDOB:1950 (73 yo F)Acc No.[id number]:05/09/2024 Patient:?FEROZ SIMONS Provider:?Michael Gant MD, [facility]1950???Age:73 Y???Sex:Female D ate:05/09/2024 Address:[address] [place] [address], [place] [facility] Pcp:Lee Barnes MD Subjective: * Chief Complaints: [...] status: Completed true * Provider:?Michael Gant MD, [facility] Date:? 05/09/2024 Generated for Radha malave/Sonali/eTransmitting on:?06/25/2024 04:02 PM EDT History and Physical Notes * HPI [...]
--- OUTSIDE RECORDS SUMMARY | 2024-06-25 16:02 | XMS_ITS | Clinical Summary ---
Author Organization [facility] Address [address] [place] [address] Care Team Providers Care Wire Stripping Machine Operator Name Role Phone No, Pcp INSPECTOR OPTICAL INSTRUMENT Primary Care Provider Unavailabl e Allergies Active [...] Adults 18 yrs or above (or HM Modifier)([facility]) 08/04/1967 Hepatitis C Virus Infection in Adolescents and Adults: Screening (or Modifier) ([facility]) 08/04/1967 SDOK Screening Reminder: Miriam brooks for all adults ([facility]) 08/04/1967 Tobacco Smoking Cessation: i n Adults excluding Women: Behavioral and Pharmacotherapy Interventions ([facility]) 08/04/1967 DTaP/Tdap/Td Vaccines ([facility]) (1 - Tdap) 1968 Colorectal Cancer Screening 45 -75 Yrs (or HM Modifier) 1994 Colorectal Cancer: FLEXIBLE SIGMOIDOSCOPY Screening every 5 yrs 1994 Colorectal Cancer: Fecal Imm unochemical Test (FIT) Annually [facility] 1994 Colorectal Cancer: High-sens itivity gFOBT Screening Annually [facility] 1994 Colorectal Cancer: Stool Col oguard Screening every 3 yrs 1994 Colorectal Cancer:CT Colonog kenya Screening every 5 yrs 1994 Lipid Screening: Every 5 yrs for Women aged 45+ (or HM Modifier) ([facility]) 08/04/1995 Breast Cancer: Screening Miriam ually age 50-74 yrs (or HM Modifier)([facility]) 08/04/1999 Pneumococcal Vaccination Scr eening: Patients 50+ yrs of age ([facility]) (1 of 1 - PCV) 08/04/1999 Zoster/Shingles Vaccine Seri es Screening: Adults aged 18+ yrs (or HM Modifiers)([facility]) (1 of 2) 08/04/1999 Osteoporosis Screening to Pr event Fractures: Women aged 65 years+ ([facility]) 2014 COVID-19 Vaccine Screening: Initial Series and Booster Status ([facility]) (2023- season) 2023 RSV Vaccines (1 - 1-dose 75+ series) 2024 Flu Vaccination: Ages 65+: Y early High Dose Recommended (or Modifier)([facility]) 09/21/2024 10/31/2017, 7 [employer] Not on file Insurance MEDICARE Care Teams Wire Stripping Machine Operator Relationship Specialty Start Date End Date No, Pcp, INSPECTOR OPTICAL INSTRUMENT N/A Do not use PCP - General 11/21/19
--- OUTSIDE RECORDS SUMMARY | 2024-06-25 16:02 | XMS_ITS ---
Author Organization [facility] Lung & All[facility] Address [address] [place], [place] [address] Care Team Providers Care Circulation Supervisor Name Role Phone Lee Barnes MD Primary Care Provider Michael Leonard Unavailable [phone] Josh Power Unavailable Unavailable Allergies Allergen (clinical [...] [facility] [place] [address] [place] [address] 04/27/2023 Michael Gant Moderate persistent asthma J45.40 [...] Name:Michael Gant, 11/14/2024 10:45:00 AM, [address] [place], [address], Progress Notes * FEROZ SIMONSDOB:1950 (72 yo F)Acc No.[id number]:04/27/2023 Patient:?FEROZ SIMONS Provider:?Michael Gant MD, FCCP :1950???Age:72 Y???Sex:Female D ate:04/27/2023 Address:[address] [place], [place] [address] Pcp:Lee Barnes MD Subjective: * Chief Complaints: [...] status: Completed true * Provider:?Michael Gant MD, [facility] Date:? 04/27/2023 Generated for Radha malave/Sonali/eTransmitting on:?06/25/2024 04:01 PM EDT History and Physical Notes * [...]
--- OUTSIDE RECORDS SUMMARY | 2024-06-25 16:02 | XMS_ITS ---
Author Organization [facility] & Allergy [facility] Address [address] [place], [place] [address] Care Team Providers Care Stapling Machine Operator Name Role Phone Lee Barnes MD Primary Care Provider Michael Leonard Unavailable [phone] Josh Power Unavailable Unavailable Allergies Allergen (clinical [...] Provider Diagnosis [facility] [place] [address] [place] [address] 10/28/2023 Michael Gant Moderate persistent asthma J45.40 [...] Name:Michael Gant, 11/14/2024 10:45:00 AM, [address] [place], [address], Progress Notes * FEROZ SIMONSDOB:1950 (73 yo F)Acc No.[id number]:10/28/2023 Patient:?FEROZ SIMONS [facility]:?[facility]1950???Age:73 Y???Sex:Female D ate:10/28/2023 Address:[address] [place] [address], [place] [facility] Pcp:Lee Barnes MD Subjective: * Chief Complaints: [...] status: Completed true * Provider:?Michael Gant MD, [facility] Date:? 10/28/2023 Generated for Radha malave/Sonali/eTransmitting on:?06/25/2024 04:01 PM [...]
== END 2024-06-25 15:14 | disposition home or self-care (01) ==
LOC: HO.HMCH 14:29
PROVIDERS: PCP Physician Assistant; Visit Provider Physician Assistant
DX: R10.11 Right upper quadrant pain (principal)

== ENCOUNTER 2024-06-25 14:29 | Outpatient (REF) | payer OTHER, SELFPAY ==
--- OUTSIDE RECORDS SUMMARY | 2024-06-25 16:58 | XMS_ITS | Clinical Summary ---
Author Organization [facility] Address [address] [place] [address] Care Team Providers Care Garment Patternmaker Name Role Phone No, Pcp ESCAPEMENT MATCHER Primary Care Provider Unavailabl e Allergies Active [...] Adults 18 yrs or above (or HM Modifier)([facility]) 08/04/1967 Hepatitis C Virus Infection in Adolescents and Adults: Screening (or Modifier) ([facility]) 08/04/1967 SDNY Screening Reminder: Miriam brooks for all adults ([facility]) 08/04/1967 Tobacco Smoking Cessation: i n Adults excluding Women: Behavioral and Pharmacotherapy Interventions ([facility]) 08/04/1967 DTaP/Tdap/Td Vaccines ([facility]) (1 - Tdap) 1968 Colorectal Cancer Screening 45 -75 Yrs (or HM Modifier) 1994 Colorectal Cancer: FLEXIBLE SIGMOIDOSCOPY Screening every 5 yrs 1994 Colorectal Cancer: Fecal Imm unochemical Test (FIT) Annually [facility] 1994 Colorectal Cancer: High-sens itivity gFOBT Screening Annually [facility] 1994 Colorectal Cancer: Stool Col oguard Screening every 3 yrs 1994 Colorectal Cancer:CT Colonog kenya Screening every 5 yrs 1994 Lipid Screening: Every 5 yrs for Women aged 45+ (or HM Modifier) ([facility]) 08/04/1995 Breast Cancer: Screening Miriam ually age 50-74 yrs (or HM Modifier)([facility]) 08/04/1999 Pneumococcal Vaccination Scr eening: Patients 50+ yrs of age ([facility]) (1 of 1 - PCV) 08/04/1999 Zoster/Shingles Vaccine Seri es Screening: Adults aged 18+ yrs (or HM Modifiers)([facility]) (1 of 2) 08/04/1999 Osteoporosis Screening to Pr event Fractures: Women aged 65 years+ ([facility]) 2014 COVID-19 Vaccine Screening: Initial Series and Booster Status ([facility]) (2023- season) 2023 RSV Vaccines (1 - 1-dose 75+ series) 2024 Flu Vaccination: Ages 65+: Y early High Dose Recommended (or Modifier)([facility]) 09/21/2024 10/31/2017, 7 [employer] Not on file Insurance MEDICARE Care Teams Garment Patternmaker Relationship Specialty Start Date End Date No, Pcp, ESCAPEMENT MATCHER N/A Do not use PCP - General 11/21/19
--- OUTSIDE RECORDS SUMMARY | 2024-06-25 16:58 | XMS_ITS | Clinical Summary ---
Author Organization [facility] Address [address] [place] [address] Phone Care Team Providers Care Engineer Exhauster Name Role Phone Physician, Pcp Unknown Primary [...] HEALTHCARE MEDICARE [employer] MEDICARE Care Teams Engineer Exhauster Relationship Specialty Start Date End Date Physician, Pcp Unknown PCP - General 03/22/24
--- OUTSIDE RECORDS SUMMARY | 2024-06-25 16:58 | XMS_ITS | Encounter Summary ---
Author Organization [facility] Address [address] [place] [address] Care Team Providers Care Abattoir Supervisor Name Role Phone Physician, Pcp Unknown Primary Care Provider Sara vailable Encounter Details Date Type Department Care Team (Late st Contact Info) Description 03/22/2024 Lab Requisition [facility] - Main Lab [address] [facility] [place] [address] Joshua Arreaga MD [address] [facility] [address] [place] [address] Gross hematuria Social History Tobacco [...] AM EST) Final Diagnosis A. Urine, Voided, ([id number]): Negative for high grade urothelial carcinoma. Acute inflammatory cells are present. 04/02/2024 4:56 PM EST [facility] Clinical Information Gross hematuria R31.0 Urine cytology with reflex UroVysion ([facility]) 04/02/2024 4:56 PM EST [facility] Gross Description A. Urine, Voided, ([id number]): Received is one ThinPrep slide for cytology. 04/02/2024 4:56 PM EST [facility] Disclaimer Unless otherwise specified, all tissue is 10% NB formalin fixed and paraffin embedded. Technical pathology services provided by [facility] at [address] [facility] [address], [place] [address] (CLIA #[id number]/Trino Retana MD, Dry Cans Back Tender) 04/02/2024 4:56 PM EST [facility] Tissue Urine specimen from urethra / Unknown 03/20/2024 03/22/2024 2:13 PM EST us Joshua Arreaga MD LAB PATHOLOGY ORDERABLES Final Result [facility] [address] [place] [address], documented in this encounter Visit Diagnoses Diagnosis Gross hematuria documented in this encounter Care Teams Abattoir Supervisor Relationship Specialty Start Date End Date Physician, Pcp Unknown PCP - General 03/22/24 documented as of this encounter
--- OUTSIDE RECORDS SUMMARY | 2024-06-25 16:58 | XMS_ITS | Clinical Summary ---
Author Organization [facility] Address [address] [place] [address] Care Team Providers Care Transport Tech Name Role Phone Horace Stovall MD Primary [...] Elevated antinuclear antibody (SHEBA) level 2022 Positive SHBEA (antinuclear antibody) 11/23/2022 Essential hypertension 11/23/2022 Hyperlipidemia [...] complete this topic Procedures * Due to [place] [employer]ash[employer] law, this organization might not be sharing [...] to Health Maintenance Results * Due to [place] [employer] law, this organization might not be sharing [...] 10/29/2021 [facility] Screening Digital Mammogram and 10/20/2020 [facility] Screening Digital Mammogram Bilateral Breast [...] OF RADIOLOGY Patient: KAREN SIMONS ?Unit #: [id number] Ordering MD: DEREJE NUNEZ MD ? : [...] was determined using an external X-ray source ([facility]). SITE: ??[facility] COMPARISON: Prior BMD of 2020 FINDINGS: [...] ??Arias Miranda MD 05/26/2022 11:22 AM ?? [id number] Procedure Note Arias Miranda MD - 11/17/2022 DEPARTMENTOF RADIOLOGY Peng t: KAREN SIMONS Unit #:[id number] Ordering MD: DEREJE NUNEZ MD :1950 Procedure: DEXA Bone Density Axial Age:71 Location: XRAY ExamDate: 05/26/22 Status: REG CLIRoom/Bed: Primary MD: YONATAN MAC DO PatientAcct #: [id number] Order:DEXABONE Additional Copy: DEREJE NUNEZ MD YONATAN MAC DO - EXAM: BONE MINERAL DENSITY PROCEDURE: The bone mineral density (BMD) of the spine and proximal leftfemur was determined using an external X-ray source ([employer]). SITE: [facility] COMPARISON: Prior BMD of 2020 FINDINGS: [...] SIGNED BY: Arias Miranda MD 05/26/2022 11:22 [id number] Dereje Nunez MD IMG DXA PROCEDURES Final [...] Most Recently Relevant to Health Maintenance Insurance [facility] MCR Advance Directives Documents on File Type Date Recorded Patient Sheep Killer Expl anation Health Care Proxy 03/02/2022 03/02/2022 Health Care Proxy 08/07/2021 07/24/2021 Care Teams Transport Tech Relationship Specialty Start Date End Date Horace Stovall MD [address] [place] [address] PCP - General Internal Medicine 08/01/23
--- OUTSIDE RECORDS SUMMARY | 2024-06-25 16:58 | XMS_ITS | Referral Summary ---
Author Organization [facility] Address [address] [place] [address] Care Team Providers Care Title Lawyer Name Role Phone Horace Stovall MD Primary [...] on file Procedures * Due to [place] [employer] law, this organization might not be sharing [...] Health Maintenance Results * Due to [place] [employer] law, this organization might not be sharing [...] of this study. COMPARISON Compared to: 10/29/2021 [facility] Screening Digital Mammogram and 10/20/2020 [facility] Screening Digital Mammogram Bilateral Breast Findings: The [...] OF RADIOLOGY Patient: KAREN SIMONS ?Unit #: [id number] Ordering MD: DEREJE NUNEZ MD ? : [...] was determined using an external X-ray source ([employer]). SITE: ??[facility] COMPARISON: Prior BMD of 2021 FINDINGS: [...] ??Arias Miranda MD 05/26/2022 11:22 AM ?? [id number] Procedure Note Arias Miranda MD - 11/17/2022 DEPARTMENTOF RADIOLOGY Peng t: KAREN SIMONS Unit #:[id number] Ordering MD: DEREJE NUNEZ MD :1950 Procedure: DEXA Bone Density Axial Age:71 Location: XRAY ExamDate: 05/26/22 Status: REG CLIRoom/Bed: Primary MD: YONATAN MAC DO PatientAcct #: [id number] Order:DEXABONE Additional Copy: DEREJE NUNEZ MD, YASIR DO - EXAM: BONE MINERAL DENSITY PROCEDURE: The bone mineral density (BMD) of the spine and proximal leftfemur was determined using an external X-ray source ([employer]). SITE: [facility] COMPARISON: Prior BMD of 2020 FINDINGS: [...] SIGNED BY: Arias Miranda MD 05/26/2022 11:22 [id number] us Dereje Nunez MD IMG DXA PROCEDURES [...] Most Recently Relevant to Health Maintenance Insurance [facility] MCR Advance Directives Documents on File Type Date Recorded Patient C D Still Operator Expl anation Health Care Proxy 03/02/2022 03/02/2022 Health Care Proxy 08/07/2021 07/24/2021 Care Teams Title Lawyer Relationship Specialty Start Date End Date Horace Stovall MD [address] [place] [address] PCP - General Internal Medicine 08/01/23
[2024-06-25 17:12] LABS: Hematocrit 41.5 % (37.0-47.0); Hemoglobin 13.8 g/dl (12.0-16.0); Mean Corpuscular HGB Conc 33.3 g/dl (31.0-35.0); Mean Corpuscular Hemoglobin 31.5 pg (27.0-33.0); Mean Corpuscular Volume 94.7 fL (80.0-98.0); Mean Platelet Volume 10.7 fL (9.4-12.3); Platelet Count 253 X10*3/uL (160-400); Red Blood Count 4.38 X10*6/uL (4.20-5.50); Red Cell Distribution Width 13.3 % (11.0-16.0); White Blood Count 10.1 X10*3/uL (4.8-10.8)
[2024-06-25 17:41] LABS: Alanine Aminotransferase 22 U/L (0-31); Albumin Level 4.5 g/dL (3.5-5.0); Alkaline Phosphatase 44 U/L (39-117); Anion Gap 13 (12-20); Aspartate Amino Transferase 28 U/L (5-31); Bilirubin Total 0.6 mg/dL (0.0-1.0); Blood Urea Nitrogen 15 mg/dL (9-16); Calcium 9.5 mg/dL (8.4-10.2); Carbon Dioxide 26 mmol/L (22-29); Chloride 105 mmol/L (96-108); Estimated Glomerular Filt Rate > 60; Glucose Random 83 mg/dL (60-115); Lipase 31 U/L (8-78); Potassium 3.5 mmol/L (3.3-5.1); Sodium 140 mmol/L (135-145); Total Protein 7.2 g/dL (6.5-8.0)
[2024-06-26 22:38] LABS: Transglutaminase Ab IgG <1.0 U/mL; Transglutaminase IgA <1.0 U/mL
== END 2024-06-25 14:30 | disposition home or self-care (01) ==
LOC: HO.LAB 14:29
PROVIDERS: PCP Physician Assistant; Visit Provider Physician Assistant
DX: R10.11 Right upper quadrant pain (principal); R14.0 Abdominal distension (gaseous)
CPT/HCPCS: 36415; 80053; 83690; 85027; 86364; 96127

== ENCOUNTER 2024-07-02 11:18 | Outpatient (AMB) | payer OTHER, SELFPAY ==
--- NOTE | 2024-07-02 11:29 | MHC.OFFVIS ---
Vital Signs 07/02/24 11:30 Height 5 ft 5 in Weight 124 lb BMI 20.6 Intake Visit Reasons: DEXA follow up Allergies SKYLAR Inhibitors Adverse Reaction (Mild, Verified 06/25/24 15:00) Cough amlodipine [From Norvasc] Adverse Reaction (Mild, Verified 06/25/24 15:00) Rash HPI Comments Details: Presenting for DEXA scan follow-up which showed the following: FINDINGS: The bone mineral density of the lumbar spine is 1.091 with a T-score of -0.7, and a Z-score of 1.3. This is indicative of normal bone mineral density. The bone mineral density of the left total hip is 0.820 with a T-score of -1.5, and a Z-score of 0.4. This is indicative of osteopenia. The bone mineral density of the left femoral neck is 0.816 with a T-score of -1.6, and a Z-score of 0.5. This is indicative of osteopenia. MM/XR DEXA axial skeleton IMPRESSION: Based on bone mineral density, and according to World Health Organization (WHO) criteria, the diagnosis is consistent with osteopenia. [facility] Medical History Mild intermittent asthma, uncomplicated Personal history of colonic polyps Lesion of throat SI joint arthritis Chronic osteoarthritis Osteoarthritis of sacroiliac joint Osteoarthritis of right hip Nabothian cyst Lumbar spondylosis SHEBA positive Colon polyps Closed fracture of right ankle B12 deficiency Asthma Migraine Hyperlipidemia Hypertension Hypothyroidism Allergic rhinitis Osteopenia Surgical History History of hysterectomy, supracervical H/O colonoscopy History of cataract surgery S/P left knee arthroscopy History of hip surgery Family History Father Bladder cancer Brother Bladder cancer Social History Housing: House Patient Tobacco Use Status: Never used Tobacco e-Cigarette/Vaping Use: Never Used service: No Current occupational status: retired Current occupation: rt handed Cognitive needs: No Hearing needs: No Vision needs: Yes Review of Systems Const All systems reviewed & are unremarkable except as noted in HPI and below Reports as per HPI and Reports no additional complaints GI Reports no additional complaints Reports no additional complaints Physical Exam Vital Signs: BMI result Body Mass Index 20.6 Assessment & Plan Assessment & Plan (1) Osteopenia: Code(s): M85.80 - Other specified disorders of bone density and structure, unspecified site Category: Medical Qualifiers: Osteopenia location: hip Laterality: unspecified laterality Qualified Code(s): M85.859 - Other specified disorders of bone density and structure, unspecified thigh Plan: Discussed with the patient the DEXA results and FRAX risk. FRAX risk and T score showed no evidence of osteoporosis. Discussed with the patient all the options for osteoporosis prevention including lifestyle modifications including Ca+D supplements 1200 mg po qd/800 MIU, Weight bearing exercises and proteine supplements. The patient verbalized understanding and agreed plan will repeat DEXA in 2 years. Coding Level of Care Code Est Pt Level 3 (92540) Diagnoses Osteopenia of hip, unspecified laterality M85.859 Osteopenia location: hip Laterality: unspecified laterality
[2024-07-02 11:30] VITALS: BMI 20.6
--- OUTSIDE RECORDS SUMMARY | 2024-07-02 12:07 | XMS_ITS ---
Author Organization [facility] Address [address] [place], [place] [address] Care Team Providers Care Insurance Agent Name Role Phone Lee Barnes MD Primary Care Provider Michael Leonard Unavailable [phone] Josh Power Unavailable Unavailable Allergies Allergen (clinical [...] Provider Diagnosis [facility] [place] [address] [place] [address] 10/28/2023 Michael Gant Moderate persistent asthma J45.40 [...] Name:Michael Gant, 11/14/2024 10:45:00 AM, [address] [place], [address], Progress Notes * FEROZ SIMONSDOB:1950 (73 yo F)Acc No.[id number]:10/28/2023 Patient:?FEROZ SIMONS [facility]:?[facility]1950[facility]Age:73 Y???Sex:Female D ate:10/28/2023 Address:[address] [place] [address], [place] [facility] Pcp:Lee Barnes MD Subjective: * Chief Complaints: [...] status: Completed true * Provider:?Michael Gant MD, [facility] Date:? 10/28/2023 Generated for Radha malave/Sonali/eTransmitting on:?07/02/2024 12:07 PM EDT History and Physical Notes * [...]
--- OUTSIDE RECORDS SUMMARY | 2024-07-02 12:07 | XMS_ITS | Clinical Summary ---
Author Organization [facility] Address [address] [place] [address] Care Team Providers Care Operations Business Partner Name Role Phone No, Pcp VIDEOGAME TESTER Primary Care Provider Unavailabl e Allergies Active [...] Adults 18 yrs or above (or HM Modifier)([facility]) 08/04/1967 Hepatitis C Virus Infection in Adolescents and Adults: Screening (or Modifier) ([facility]) 08/04/1967 SDWV Screening Reminder: Miriam brooks for all adults ([facility]) 08/04/1967 Tobacco Smoking Cessation: i n Adults excluding Women: Behavioral and Pharmacotherapy Interventions ([facility]) 08/04/1967 DTaP/Tdap/Td Vaccines ([facility]) (1 - Tdap) 1968 Colorectal Cancer Screening 45 -75 Yrs (or HM Modifier) 1994 Colorectal Cancer: FLEXIBLE SIGMOIDOSCOPY Screening every 5 yrs 1994 Colorectal Cancer: Fecal Imm unochemical Test (FIT) Annually [facility] 1994 Colorectal Cancer: High-sens itivity gFOBT Screening Annually [facility] 1994 Colorectal Cancer: Stool Col oguard Screening every 3 yrs 1994 Colorectal Cancer:CT Colonog kenya Screening every 5 yrs 1994 Lipid Screening: Every 5 yrs for Women aged 45+ (or HM Modifier) ([facility]) 08/04/1995 Breast Cancer: Screening Miriam ually age 50-74 yrs (or HM Modifier)([facility]) 08/04/1999 Pneumococcal Vaccination Scr eening: Patients 50+ yrs of age ([facility]) (1 of 1 - PCV) 08/04/1999 Zoster/Shingles Vaccine Seri es Screening: Adults aged 18+ yrs (or HM Modifiers)([facility]) (1 of 2) 08/04/1999 Osteoporosis Screening to Pr event Fractures: Women aged 65 years+ ([facility]) 2014 COVID-19 Vaccine Screening: Initial Series and Booster Status ([facility]) (2023- season) 2023 RSV Vaccines (1 - 1-dose 75+ series) 2024 Flu Vaccination: Ages 65+: Y early High Dose Recommended (or Modifier)([facility]) 09/21/2024 10/31/2017, 7 [employer] Not on file Insurance MEDICARE Care Teams Operations Business Partner Relationship Specialty Start Date End Date No, Pcp, VIDEOGAME TESTER N/A Do not use PCP - General 11/21/19
--- OUTSIDE RECORDS SUMMARY | 2024-07-02 12:07 | XMS_ITS | Clinical Summary ---
Author Organization [facility] Address [address] [place] [address] Care Team Providers Care School Psychology Professor Name Role Phone Horace Stovall MD Primary [...] complete this topic Procedures * Due to [place] [employer] law, this organization might not be sharing [...] to Health Maintenance Results * Due to [place] [employer] law, this organization might not be sharing [...] 10/29/2021 [facility] Screening Digital Mammogram and 10/20/2020 [facility] Screening Digital Mammogram Bilateral Breast [...] OF RADIOLOGY Patient: KAREN SIMONS ?Unit #: [id number] Ordering MD: DEREJE NUNEZ MD ? : [...] was determined using an external X-ray source ([facility]). SITE: ??[facility] COMPARISON: Prior BMD of 2020 FINDINGS: [...] ??Arias Miranda MD 05/26/2022 11:22 AM ?? [id number] Procedure Note Arias Miranda MD - 11/17/2022 DEPARTMENTOF RADIOLOGY Peng t: KAREN SIMONS Unit #:[id number] Ordering MD: DEREJE NUNEZ MD :1950 Procedure: DEXA Bone Density Axial Age:71 Location: XRAY ExamDate: 05/26/22 Status: REG CLIRoom/Bed: Primary MD: YONATAN MAC DO PatientAcct #: [id number] Order:DEXABONE Additional Copy: DEREJE NUNEZ MD YONATAN MAC DO - EXAM: BONE MINERAL DENSITY PROCEDURE: The bone mineral density (BMD) of the spine and proximal leftfemur was determined using an external X-ray source ([employer]). SITE: [facility] COMPARISON: Prior BMD of 2020 FINDINGS: [...] SIGNED BY: Arias Miranda MD 05/26/2022 11:22 [id number] Dereje Nunez MD IMG DXA PROCEDURES Final [...] Most Recently Relevant to Health Maintenance Insurance [facility] MCR Advance Directives Documents on File Type Date Recorded Patient Competitive Athlete Expl anation Health Care Proxy 03/02/2022 03/02/2022 Health Care Proxy 08/07/2021 07/24/2021 Care Teams School Psychology Professor Relationship Specialty Start Date End Date Horace Stovall MD [address] [place] [address] PCP - General Internal Medicine 08/01/23
--- OUTSIDE RECORDS SUMMARY | 2024-07-02 12:07 | XMS_ITS | Clinical Summary ---
Author Organization [address] [facility] Address [address] [place] [address] Phone Care Team Providers Care Community Engagement Coordinator Name Role Phone Physician, Pcp Unknown Primary [...] HEALTHCARE MEDICARE [employer] MEDICARE Care Teams Community Engagement Coordinator Relationship Specialty Start Date End Date Physician, Pcp Unknown PCP - General 03/22/24
--- OUTSIDE RECORDS SUMMARY | 2024-07-02 12:07 | XMS_ITS | Referral Summary ---
Author Organization [facility] Address [address] [place] [address] Care Team Providers Care Military Logistics Specialist Name Role Phone Horace Stovall MD Primary [...] Not on file Procedures * Due to [place] [employer] law, this organization might not be sharing [...] to Health Maintenance Results * Due to [place] [employer] law, this organization might not be sharing negative HIV tests. * [facility] Bilateral Screening Digital Mammogram With Spike (12/27/2022 8:30 AM EST) Anatomical Region Laterality Modality Breast Bilateral Mammography Narrative 01/01/2023 5:05 PM EST EXAMINATION [facility] Bilateral Screening Digital Mammogram With Spike. INDICATION Karen Smions is a 72 y.o. female and is seen for: [facility] Bilateral Screening Digital Mammogram With Spike. R2 CAD was used in the interpretation of this study. COMPARISON Compared to: 10/29/2021 [facility] Screening Digital Mammogram and 10/20/2020 [facility] Screening Digital Mammogram Bilateral Breast [...] OF RADIOLOGY Patient: KAREN SIMONS ?Unit #: [id number] Ordering MD: DEREJE NUNEZ MD ? : [...] was determined using an external X-ray source ([employer]). SITE: ??[facility] COMPARISON: Prior BMD of 2021 FINDINGS: [...] ??Arias Miranda MD 05/26/2022 11:22 AM ?? [id number] Procedure Note Arias Miranda MD - 11/17/2022 DEPARTMENTOF RADIOLOGY Peng t: KAREN SIMONS Unit #:[id number] Ordering MD: DEREJE NUNEZ MD :1950 Procedure: DEXA Bone Density Axial Age:71 Location: XRAY ExamDate: 05/26/22 Status: REG CLIRoom/Bed: Primary MD: YONATAN MAC DO PatientAcct #: [id number] Order:DEXABONE Additional Copy: DEREJE NUNEZ MD, YASIR DO - EXAM: BONE MINERAL DENSITY PROCEDURE: The bone mineral density (BMD) of the spine and proximal leftfemur was determined using an external X-ray source ([employer]). SITE: [facility] COMPARISON: Prior BMD of 2020 FINDINGS: [...] SIGNED BY: Arias Miranda MD 05/26/2022 11:22 [id number] us Dereje Nunez MD IMG DXA PROCEDURES [...] Most Recently Relevant to Health Maintenance Insurance [facility] MCR Advance Directives Documents on File Type Date Recorded Patient Catalog Librarian Expl anation Health Care Proxy 03/02/2022 03/02/2022 Health Care Proxy 08/07/2021 07/24/2021 Care Teams Military Logistics Specialist Relationship Specialty Start Date End Date Horace Stovall MD [address] [place] [address] PCP - General Internal Medicine 08/01/23
--- OUTSIDE RECORDS SUMMARY | 2024-07-02 12:07 | XMS_ITS | Encounter Summary ---
Author Organization [facility] Address [address] [place] [address] Care Team Providers Care Mortgage Branch Manager Name Role Phone Physician, Pcp Unknown Primary Care Provider Sara vailable Encounter Details Date Type Department Care Team (Late st Contact Info) Description 03/22/2024 Lab Requisition [facility] - Main Lab [address] [facility] [place] [address] Joshua Arreaga MD [address] [facility] [address] [place] [address] Gross hematuria Social History Tobacco [...] AM EST) Final Diagnosis A. Urine, Voided, ([id number]): Negative for high grade urothelial carcinoma. Acute inflammatory cells are present. 04/02/2024 4:56 PM EST [facility] Clinical Information Gross hematuria R31.0 Urine cytology with reflex UroVysion ([facility]) 04/02/2024 4:56 PM EST [facility] Gross Description A. Urine, Voided, ([id number]): Received is one ThinPrep slide for cytology. 04/02/2024 4:56 PM EST [facility] Disclaimer Unless otherwise specified, all tissue is 10% NB formalin fixed and paraffin embedded. Technical pathology services provided by [facility] at [address], [place] [address] (CLIA #[id number]/Trino Retana MD, Distance Learning Technician) 04/02/2024 4:56 PM EST [facility] Tissue Urine specimen from urethra / Unknown 03/20/2024 03/22/2024 2:13 PM EST us Joshua Arreaga MD LAB PATHOLOGY ORDERABLES Final Result [facility] [address] [place] [address], documented in this encounter Visit Diagnoses Diagnosis Gross hematuria documented in this encounter Care Teams Mortgage Branch Manager Relationship Specialty Start Date End Date Physician, Pcp Unknown PCP - General 03/22/24 documented as of this encounter
--- OUTSIDE RECORDS SUMMARY | 2024-07-02 12:07 | XMS_ITS | Patient Health Record ---
Author Organization [facility] Address [address] [place], [place] [address] Care Team Providers Care Furnace Combustion Analyst Name Role Phone Molly SERNA, Lee Primary Care Provider Michael Leonard Unavailable [phone] Tono Josh Unavailable Unavailable Allergies Allergen (clinical [...] W/U Status Risk Notes Problem Allergic rhinitis (86271305) Allergic rhinitis (J30.9) Active confirmed Problem Moderate persistent asthma (281700679) Moderate persistent asthma (J45.40) Active confirmed Vital Signs Heart Rate 68 /min 05/09/2024 Respiratory Rate 16 /min 05/09/2024 Blood pressure diastolic 70 mm Hg 05/09/2024 Height 66 in 05/09/2024 Blood pressure systolic 112 mm Hg 05/09/2024 Weight 125 lbs 05/09/2024 BMI 20.17 kg/m2 05/09/2024 Encounters Encounter Location Date Provider Diagnosis [facility] [place] [address] [place] [address] 10/28/2023 Michael Gant Moderate persistent asthma J45.40 and Allergic rhinitis J30.9 [facility] [address] [place] [address] 05/09/2024 Michael Gant Moderate persistent asthma J45.40 [...] Name:Michael Gant, 11/14/2024 10:45:00 AM, [address] [place], [address], Insurance Providers Payer Name Payer Address Payer Phone Subscriber Number Group Number Insured Name Patient Relationship to Insured Coverage Start Date Coverage End Date [facility] [address] [place] [phone] [id number] FEROZ SIMONS Self - patient is the insured Medical (General) History Medical History History ICD Code Hyperlipidemia Hypothyroidism Back pain Migraine headache G43.909 Allergic rhinitis J30.9 Moderate persistent asthma J45.40 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
--- OUTSIDE RECORDS SUMMARY | 2024-07-02 12:08 | XMS_ITS ---
Author Organization [facility] Address [address] [place], [place] [address] Care Team Providers Care Healthcare Analyst Name Role Phone Lee Barnes MD Primary Care Provider Michael Leonard Unavailable [phone] Josh Power Unavailable Unavailable Allergies Allergen (clinical [...] Lung & [facility] [place] [address] [place] [address] 05/09/2024 Michael Gant Moderate persistent asthma J45.40 [...] Name:Michael Gant, 11/14/2024 10:45:00 AM, [address] [place], [address], Progress Notes * FEROZ SIMONSDOB:1950 (73 yo F)Acc No.[id number]:05/09/2024 Patient:?FEROZ SIMONS Provider:?Michael Gant MD, [facility]1950???Age:73 Y???Sex:Female D ate:05/09/2024 Address:[address] [place] [address], [place] [facility] Pcp:Lee Barnes MD Subjective: * Chief Complaints: [...] Completed true * Provider:?Michael Gant MD, [facility] Date:? 05/09/2024 Generated for Radha malave/Sonali/eTransmitting on:?07/02/2024 12:07 PM [...]
--- OUTSIDE RECORDS SUMMARY | 2024-07-02 12:08 | XMS_ITS ---
Author Organization [facility] Address [address] [place], [place] [address] Care Team Providers Care Clinical Orthoptist Name Role Phone Lee Barnes MD Primary Care Provider Michael Leonard Unavailable [phone] Josh Power Unavailable Unavailable Allergies Allergen (clinical [...] Provider Diagnosis [facility] [place] [address] [place] [address] 04/27/2023 Michael Gant Moderate persistent asthma J45.40 [...] Name:Michael Gant, 11/14/2024 10:45:00 AM, [address] [place], [address], Progress Notes * FEROZ SIMONSDOB:1950 (72 yo F)Acc No.[id number]:04/27/2023 Patient:?FEROZ SIMONS Provider:?Michael Gant MD, [facility]P :1950???Age:72 Y???Sex:Female D ate:04/27/2023 Address:[address] [place], [place] [id number] Pcp:Lee Barnes MD Subjective: * Chief Complaints: [...] status: Completed true * Provider:?Michael Gant MD, [facility] Date:? 04/27/2023 Generated for Radha malave/Sonali/eTransmitting on:?07/02/2024 12:07 PM [...]
== END 2024-07-02 11:43 | disposition home or self-care (01) ==
LOC: HO.HWS 11:18
PROVIDERS: PCP Physician Assistant; Visit Provider Obstetrics & Gynecology
DX: M85.859 Other specified disorders of bone density and structure, unspecified thigh (principal)
CPT/HCPCS: 99213

== ENCOUNTER → 2024-07-02 11:18 | Outpatient (BNVA) | payer OTHER, SELFPAY | PROVIDERS: PCP Physician Assistant; Visit Provider Obstetrics & Gynecology ==

== ENCOUNTER 2024-09-03 06:59 | Outpatient (REF) | payer MEDICARE, SELFPAY ==
--- OUTSIDE RECORDS SUMMARY | 2024-09-03 07:02 | XMS_ITS | Patient Health Record ---
Author Organization [facility] Address [address] [place], [place] [address] Care Team Providers Care Director Talent Management Name Role Phone Molly SERNA, Lee Primary Care Provider Michael Leonard Unavailable [phone] Tono Josh Unavailable Unavailable Allergies Allergen (clinical [...] medicine of the day with plain water Orally; Duration: 30 day(s) Active Super B Complex Acti ve Calcium + D 500-1000-40 MG-UNT-MCG as directed Orally Active SUMAtriptan Succinate 25 MG 1 tablet at least 2 hours between doses as needed Orally Twice a day as needed Active prevastin 40mg one capsual once a day Active Topiramate 25 MG 1 tablet Orally Once a day; Duration: 30 day(s) twice a day Active Fluticasone Propionate 50 MCG/ACT 1 spray in each nostril Nasally Once a day; Duration: 90 days Active Trelegy Ellipta 200-62.5-25 MCG/ACT 1 puff Inhalation Once a day; Duration: 30 days Active Albuterol Sulfate HFA 108 (90 Base) MCG/ACT 1 puff as needed Inhalation every 4 hrs Active Levoxyl 75 MCG 1 tablet in the morning on an empty stomach Orally Once a day Active Losartan Potassium 50 MG 1 tablet Orally Once a day; Duration: 30 day(s) Active Social History Tobacco Use: Social History Observation Description Date Details (start date - stop date) Never Smoker NA - NA Tobacco Question Answer Notes Are you a: never smoker Additional Findings: Tobacco Non-User Does not u se moist powdered tobacco Problems Problem Type SNOMED Code ICD Code Onset Dates Problem Status W/U Status Risk Notes Problem Allergic rhinitis (J30.9) Active confirmed Problem Moderate persistent asthma (263637367) Moderate persistent asthma (J45.40) Active confirmed Vital Signs Heart Rate 68 /min 05/09/2024 Respiratory Rate 16 /min 05/09/2024 Blood pressure diastolic 70 mm Hg 05/09/2024 Height 66 in 05/09/2024 Blood pressure systolic 112 mm Hg 05/09/2024 Weight 125 lbs 05/09/2024 BMI 20.17 kg/m2 05/09/2024 Encounters Encounter Location Date Provider Diagnosis [facility] [address] [place] [address] 10/28/2023 Michael Gant Moderate persistent asthma J45.40 and Allergic rhinitis J30.9 [facility] [address] [place] [address] 05/09/2024 Michael Gant Moderate persistent asthma J45.40 [...] Name:Michael Gant, 11/14/2024 10:45:00 AM, [address] [place], [address], Insurance Providers Payer Name Payer Address Payer Phone Subscriber Number Group Number Insured Name Patient Relationship to Insured Coverage Start Date Coverage End Date [facility] [address] [place] [phone] [id number] FEROZ SIMONS Self - patient is the insured Medical (General) History Medical History History ICD Code Hyperlipidemia Hypothyroidism Back pain Migraine headache G43.909 Allergic rhinitis J30.9 Moderate persistent asthma J45.40 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
--- OUTSIDE RECORDS SUMMARY | 2024-09-03 07:02 | XMS_ITS | Clinical Summary ---
Author Organization [facility] Address [address] [place] [address] Care Team Providers Care Dowel Pin Worker Name Role Phone No, Pcp LEAD RETAIL SALES ASSOCIATE Primary Care Provider Unavailabl e Allergies Active [...] Adults 18 yrs or above (or HM Modifier)([facility]) 08/04/1967 Hepatitis C Virus Infection in Adolescents and Adults: Screening (or Modifier) ([facility]) 08/04/1967 SDRI Screening Reminder: Miriam brooks for all adults ([facility]) 08/04/1967 Tobacco Smoking Cessation: i n Adults excluding Women: Behavioral and Pharmacotherapy Interventions ([facility]) 08/04/1967 DTaP/Tdap/Td Vaccines ([facility]) (1 - Tdap) 1968 Colorectal Cancer Screening 45 -75 Yrs (or HM Modifier) 1994 Colorectal Cancer: FLEXIBLE SIGMOIDOSCOPY Screening every 5 yrs 1994 Colorectal Cancer: Fecal Imm unochemical Test (FIT) Annually [facility] 1994 Colorectal Cancer: High-sens itivity gFOBT Screening Annually [facility] 1994 Colorectal Cancer: Stool Col oguard Screening every 3 yrs 1994 Colorectal Cancer:CT Colonog kenya Screening every 5 yrs 1994 Pneumococcal Vaccination Scr eening: Patients 50+ yrs of age ([facility]) (1 of 1 - PCV) 08/04/1999 Zoster/Shingles Vaccine Seri es Screening: Adults aged 18+ yrs (or HM Modifiers)([facility]) (1 of 2) 08/04/1999 Osteoporosis Screening to Pr event Fractures: Women aged 65 years+ ([facility]) 2014 COVID-19 Vaccine Screening: Initial Series and Booster Status ([facility]) ( - 2023- season) 2023 RSV Vaccines (1 - 1-dose 75+ series) 2024 Flu Vaccination: Ages 65+: Y early High Dose Recommended (or Modifier)([facility]) 09/21/2024 10/31/2017, 7 [employer] [id number] MEDICARE Care Teams Dowel Pin Worker Relationship Specialty Start Date End Date No, Pcp, LEAD RETAIL SALES ASSOCIATE N/A Do not use PCP - General 11/21/19
--- OUTSIDE RECORDS SUMMARY | 2024-09-03 07:02 | XMS_ITS | Encounter Summary ---
Author Organization [facility] Address [address] [place] [address] Care Team Providers Care Lye Boiler Name Role Phone Physician, Pcp Unknown Primary Care Provider Sara vailable Encounter Details Date Type Department Care Team (Late st Contact Info) Description 03/22/2024 Lab Requisition [facility] - Main Lab [address] [facility] [place] [address] Joshua Arreaga MD [address] [facility] [address] [place] [address] Gross hematuria Social History Tobacco [...] AM EST) Final Diagnosis A. Urine, Voided, ([id number]): Negative for high grade urothelial carcinoma. Acute inflammatory cells are present. 04/02/2024 4:56 PM EST [facility] Clinical Information Gross hematuria R31.0 Urine cytology with reflex UroVysion ([facility]) 04/02/2024 4:56 PM EST [facility] Gross Description A. Urine, Voided, ([id number]): Received is one ThinPrep slide for cytology. 04/02/2024 4:56 PM EST [facility] Disclaimer Unless otherwise specified, all tissue is 10% NB formalin fixed and paraffin embedded. Technical pathology services provided by [facility] at [address] [facility] [address], [place] [address] (CLIA #[id number]/Trino Retana MD, Straddle Truck Driver) 04/02/2024 4:56 PM EST [facility] Tissue Urine specimen from urethra / Unknown 03/20/2024 03/22/2024 2:13 PM EST us Joshua Arreaga MD LAB PATHOLOGY ORDERABLES Final Result [facility] [address] [place] [address], documented in this encounter Visit Diagnoses Diagnosis Gross hematuria documented in this encounter Care Teams Lye Boiler Relationship Specialty Start Date End Date Physician, Pcp Unknown PCP - General 03/22/24 documented as of this encounter
[2024-09-03 09:01] LABS: Alanine Aminotransferase 22 U/L (0-31); Albumin Level 3.9 g/dL (3.5-5.0); Alkaline Phosphatase 45 U/L (39-117); Anion Gap 11 (12-20); Aspartate Amino Transferase 41 U/L (5-31); Blood Urea Nitrogen 17 mg/dL (9-16); Calcium 9.3 mg/dL (8.4-10.2); Carbon Dioxide 23 mmol/L (22-29); Chloride 113 mmol/L (96-108); Cholesterol 159 mg/dL (<200); Estimated Glomerular Filt Rate 55; HDL Cholesterol 64 mg/dL (>40); Potassium 4.1 mmol/L (3.3-5.1); Sodium 143 mmol/L (135-145); Total Protein 6.8 g/dL (6.5-8.0); Triglycerides 64 mg/dL (<150)
[2024-09-03 10:42] LABS: Appearance Urine Clear; Glucose Urine UA Negative (Negative); PH 7.0 (5.0-9.0); Specific Gravity - Urine <= 1.005 (1.005-1.025); UMIC TRIGGER UACC YES
[2024-09-03 11:09] LABS: UACC Culture Trigger YES
== END 2024-09-03 07:00 | disposition home or self-care (01) ==
LOC: HO.LAB 06:59
PROVIDERS: PCP Physician Assistant; Visit Provider Physician Assistant
DX: E03.9 Hypothyroidism, unspecified (principal); E78.2 Mixed hyperlipidemia; I10 Essential (primary) hypertension; R30.0 Dysuria; Z80.52 Family history of malignant neoplasm of bladder
CPT/HCPCS: 36415; 80053; 80061; 81001; 81003; 84443; 87086

== ENCOUNTER 2024-09-11 09:50 | Outpatient (AMB) | payer OTHER, SELFPAY ==
--- NOTE | 2024-09-11 10:07 | MHC.PC.OV ---
Vital Signs 09/11/24 10:08 Height 5 ft 5 in Weight 123 lb BMI 20.5 BP 110/66 Blood Pressure Location Lt brachial Position Sitting Pulse 77 Pulse Source Pulse Oximeter Temp 96.9 F Temp Source Temporal Artery Scan Pulse Oximetry (%) 98 Oxygen Delivery Method Room Air Intake Visit Reasons: f/u hypothyroid Intake Note: Patient is here to follow up on Hypothyriod. High Heel Builder Required: No Pleating Supervisor: Not Required per policy Accompanied by: Self / Same As Patient Allergies SKYLAR Inhibitors Adverse Reaction (Mild, Verified 09/11/24 10:25) Cough amlodipine (From [facility]) Adverse Reaction (Mild, Verified 09/11/24 10:25) Rash Medication List - Last Reconciled 09/11/24 by Alvaro Butts PA-C albuterol sulfate 90 mcg/actuation (Ventolin HFA) 2 puffs inhalation Q6H 90 days aspirin-acetaminophen (buffer) 250-250 mg tabs PO PRN calcium carbonate-vitamin D3 250 mg-3.125 mcg (125 unit) (Oyster Shell Calcium-Vitamin D3) 1 tab PO BID 90 days calcium carbonate-vitamin D3 500 mg-10 mcg (400 unit) (Oyster Shell Calcium-Vitamin D3) 1 tab PO BID 90 days fluticasone propionate 50 mcg/actuation 1 spray intranasal DAILY 90 days oytgubujmnq-ihkfzfmco-qhcxedfa 200-62.5-25 mcg (Trelegy Ellipta) 1 inh inhalation DAILY 90 days levothyroxine (Levoxyl) 75 mcg PO DAILY 90 days losartan 50 mg PO DAILY 90 days meloxicam 15 mg PO DAILY PRN 14 days pravastatin 40 mg PO BEDTIME 90 days sumatriptan succinate 25 mg orally PRN; 90 days topiramate XR 25 mg PO BID 90 days Tobacco use date assessed: 09/11/24 Fall risk assessment: No Falls in past year Last assessed Fall Risk: 09/11/24 Dental Screening Dental Screen Date: 06/25/24 HPI f/u hypothyroid HPI Details Patient is a 74-year-old female here today for a follow-up visit. Patient has a past medical history significant for moderate persistent asthma, migraine disorder, osteopenia, hypothyroidism, hypertension and hyperlipidemia. .. Asthma : Is followed by a book publisher in the [facility]. Patient reports she has been has been to use her rescue inhaler more often due to the hot weather. The patient experiences voice changes, which she attributes to the use of the inhaler Trelegy. She reports gargling as advised by her book publisher, but the voice change persists. .. Migraines : Migraine disorder has been well controlled with daily Topamax and p.r.n. use of Imitrex. .. HTN: Patient's blood pressure acceptable today in office. She does report monitoring her blood pressure at home reports normal readings. .. Laboratory Tests 11/15/23 06/25/24 09/03/24 08:40 15:32 07:13 AST 28 41 H Cholesterol 154 LDL Cholesterol, C alc 73 TSH 0.83 1.55 PFSH Medical History Mild intermittent asthma, uncomplicated Personal history of colonic polyps Lesion of throat SI joint arthritis Chronic osteoarthritis Osteoarthritis of sacroiliac joint Osteoarthritis of right hip Nabothian cyst Lumbar spondylosis SHEBA positive Colon polyps Closed fracture of right ankle B12 deficiency Asthma Migraine Hyperlipidemia Hypertension Hypothyroidism Allergic rhinitis Osteopenia Surgical History History of hysterectomy, supracervical H/O colonoscopy History of cataract surgery S/P left knee arthroscopy History of hip surgery Family History Father Bladder cancer Brother Bladder cancer Social History Housing: House Patient Tobacco Use Status: Never used Tobacco e-Cigarette/Vaping Use: Never Used Second Hand Smoke Exposure: No service: No Current occupational status: retired Current occupation: rt handed Cognitive needs: No Hearing needs: No Vision needs: Yes Questionnaire Thrive Questionnaire Date Thrive assessed: 06/23/24 I am a: Patient What is your living situation today?: I have a steady place to live Within the past 12 months, did the food you bought not last and you didn't have the money to get more?: Never true Within the past 12 months, did you worry whether your food would run out before you got money to buy more?: Never true Do you have trouble paying for medicines?: No Do you have trouble getting transportation to medical appointments?: No Do you have trouble paying your heating and electricity bill?: No Do you have trouble taking care of your child, family member or friend?: No Do you have trouble with day-to-day activities such as bathing, preparing meals, shopping, managing finances, etc.?: No Are you currently unemployed and looking for a job?: No Are you interested in more education?: No Please select the resources that you would like help with: None Currently or been in a relationship where the following occur: No concerns reported THRIVE Score: 0 SO-7 AMB Questionnaire SO-7 Date SO - 7 assessed: 06/25/24 Source: Developed by Drs. Arias Darden, Uzma Quintero, Judson Rascon and colleagues, with an educational zhane from [employer]. Review of Systems Const Denies headache(s) Eyes Denies loss of vision ENT Denies vertigo, Denies dizziness, Denies headache(s) and Denies sore throat Card Denies chest pain, Denies leg edema and Denies lightheadedness Resp Denies cough, Denies hemoptysis and Denies wheezing GI Denies abdominal pain, Denies melena, Denies constipation, Denies diarrhea and Denies vomiting Denies urinary frequency, Denies dysuria and Denies urinary urgency Musc Denies arthralgias, Denies joint swelling, Denies numbness and Denies tingling Neuro Denies Abnormal speech present, Denies behavioral changes, Denies vertigo, Denies dizziness, Denies headache(s), Denies loss of vision, Denies memory loss, Denies numbness and Denies tingling Psych Denies anxiety, Denies behavioral changes, Denies depression, Denies memory loss and Denies panic attacks Nayan/Lymph Denies easy bleeding and Denies easy bruising Aller/Immun Denies wheezing Physical exam (Primary Care) Vital Signs: Last Vital Signs Temp 96.9 F 09/11/24 10:08 Pulse 77 09/11/24 10:08 BP 110/66 09/11/24 10:08 Pulse Ox 98 09/11/24 10:08 Oxygen Delivery Method Room Air 09/11/24 10:08 BMI result Body Mass Index 20.5 Tobacco/Smoking Status: Tobacco use Status Tobacco use date assessed 09/11/24 09/11/24 10:12 Patient Tobacco Use Status Never used Tobacco 09/11/24 10:12 e-Cigarette/Vaping Use Never Used 09/11/24 10:12 Thrive Assessment: Date of Thrive Assessment Date Thrive assessed 06/23/24 09/11/24 10:12 Currently or been in a relationship where the following occur: No concerns reported Const General: healthy appearing, no acute distress, alert and awake Nutritional Appearance: well nourished Orientation/consciousness: oriented to person, oriented to place and oriented to time HENMT Ears: TM's normal bilaterally General nose exam: Normal nasal mucous membranes and turbinates present Eyes Conjunctivae: conjunctivae normal Sclerae: sclerae normal Pupils: Equal, round and reactive pupils present Neck Neck: Yes no lymphadenopathy and Yes no JVD Thyroid: Thyroid normal Carotids: no bruits Resp Effort & Inspection: normal respiratory effort and not tachypneic Auscultation: no crackles, no rales, no rhonchi and no wheezes Cardio Rate: regular rate Rhythm: regular rhythm Heart sounds: no murmurs and normal S1 and S2 GI Palpation (GI): Soft to palpation, nontender, no hepatomegaly and no splenomegaly Auscultation: normal bowel sounds Skin General skin exam: no rashes or lesions noted and dry skin Neuro General: oriented to person, oriented to place and oriented to time Cranial nerves: Yes Equal, round and reactive pupils present Speech: No Abnormal speech present Gait exam (Neuro): Normal gait present Motor exam (neuro): no tremor noted Extrem Right upper extremity: full ROM Left upper extremity: full ROM Right lower extremity: full ROM; no edema Left lower extremity: full ROM; no edema Psych Mental Status: mental status grossly normal Speech and movement: Normal speech and movement present Affect: normal affect Attitude: cooperative Thought process: Normal thought process present Coding Level of Care Code Est Pt Level 4 (43265) Diagnoses Mixed hyperlipidemia E78.2 Hyperlipidemia type: mixed hyperlipidemia Acquired hypothyroidism E03.9 Hypothyroidism type: acquired RUQ abdominal pain R10.11 Moderate persistent asthma without complication J45.40 Asthma severity: moderate Asthma persistence: persistent Asthma complication type: uncomplicated Assessment & Plan Assessment & Plan (1) Hyperlipidemia: Code(s): E78.5 - Hyperlipidemia, unspecified Category: Medical Qualifiers: Hyperlipidemia type: mixed hyperlipidemia Qualified Code(s): E78.2 - Mixed hyperlipidemia Plan: Patient continues on pravastatin 40 mg. Most recent lipid panel showing excellent control over total cholesterol and LDL (2) Hypothyroidism: Code(s): E03.9 - Hypothyroidism, unspecified Category: Medical Qualifiers: Hypothyroidism type: acquired Qualified Code(s): E03.9 - Hypothyroidism, unspecified Plan: Patient continues on levothyroxine 75 mcg daily with good effect. Most recent TSH is stable. (3) RUQ abdominal pain: Code(s): R10.11 - Right upper quadrant pain Category: Medical Plan: Abdominal ultrasound to check for gallstones is planned. Dietary changes have been made to minimize symptoms. (4) Asthma: Code(s): J45.909 - Unspecified asthma, uncomplicated Category: Medical Qualifiers: Asthma severity: moderate Asthma persistence: persistent Asthma complication type: uncomplicated Qualified Code(s): J45.40 - Moderate persistent asthma, uncomplicated Plan: Patient reports her asthma has been fairly well controlled. Has been followed by a book publisher. Continues on Trelegy which does cause hoarseness of her voice. She has been using her albuterol inhaler a bit more often due to hot humid weather. Otherwise no recent exacerbations in her asthma. Orders: Orders Complete Blood Count no Diff Today J45.40 - Moderate persistent asthma, uncomplicated Vitamin B12 and Folate Today E53.8 - Deficiency of other specified B group vitamins TSH reflex Free T4 Today E03.9 - Hypothyroidism, unspecified Microalbumin, Random (w Creat) Today I10 - Essential (primary) hypertension Comprehensive [place]. Panel Fast Today I10 - Essential (primary) hypertension Lipid Panel Today E78.2 - Mixed hyperlipidemia
[2024-09-11 10:08] VITALS: BP 110/66; PULSE 77; TEMP 36.1; O2SAT 98; BMI 20.5
--- OUTSIDE RECORDS SUMMARY | 2024-09-11 10:38 | XMS_ITS | Clinical Summary ---
Author Organization [facility] lin Address [address] [place] [address] Care Team Providers Care Steel Rule Die Maker Name Role Phone No, Pcp ANIMAL PHYSIOLOGIST Primary Care Provider Unavailabl e Allergies Active [...] Adults 18 yrs or above (or HM Modifier)([facility]) 08/04/1967 Hepatitis C Virus Infection in Adolescents and Adults: Screening (or Modifier) ([facility]) 08/04/1967 SDWV Screening Reminder: Miriam brooks for all adults ([facility]) 08/04/1967 Tobacco Smoking Cessation: i n Adults excluding Women: Behavioral and Pharmacotherapy Interventions ([facility]) 08/04/1967 DTaP/Tdap/Td Vaccines ([facility]) (1 - Tdap) 1968 Colorectal Cancer Screening 45 -75 Yrs (or HM Modifier) 1994 Colorectal Cancer: FLEXIBLE SIGMOIDOSCOPY Screening every 5 yrs 1994 Colorectal Cancer: Fecal Imm unochemical Test (FIT) Annually [facility] 1994 Colorectal Cancer: High-sens itivity gFOBT Screening Annually [facility] 1994 Colorectal Cancer: Stool Col oguard Screening every 3 yrs 1994 Colorectal Cancer:CT Colonog kenya Screening every 5 yrs 1994 Pneumococcal Vaccination Scr eening: Patients 50+ yrs of age ([facility]) (1 of 1 - PCV) 08/04/1999 Zoster/Shingles Vaccine Seri es Screening: Adults aged 18+ yrs (or HM Modifiers)([facility]) (1 of 2) 08/04/1999 Osteoporosis Screening to Pr event Fractures: Women aged 65 years+ ([facility]) 2014 COVID-19 Vaccine Screening: Initial Series and Booster Status ([facility]) ( - 2023- season) 2023 RSV Vaccines (1 - 1-dose 75+ series) 2024 Flu Vaccination: Ages 65+: Y early High Dose Recommended (or Modifier)([facility]) 09/21/2024 10/31/2017, [employer] [id number] MEDICARE Care Teams Steel Rule Die Maker Relationship Specialty Start Date End Date No, Pcp, ANIMAL PHYSIOLOGIST N/A Do not use PCP - General 11/21/19
--- OUTSIDE RECORDS SUMMARY | 2024-09-11 10:38 | XMS_ITS | Patient Health Record ---
Author Organization [facility] Address [address] [place], [place] [id number] Care Team Providers Care Complaint Supervisor Name Role Phone Molly SERNA, Lee Primary Care Provider Michael Leonard Unavailable [phone] Tono Josh Unavailable Unavailable Allergies Allergen (clinical [...] (J30.9) Active confirmed Problem Moderate persistent asthma (322288850) Moderate persistent asthma (J45.40) Active confirmed Vital Signs Heart Rate 68 /min 05/09/2024 Respiratory Rate 16 /min 05/09/2024 Blood pressure diastolic 70 mm Hg 05/09/2024 Height 66 in 05/09/2024 Blood pressure systolic 112 mm Hg 05/09/2024 Weight 125 lbs 05/09/2024 BMI 20.17 kg/m2 05/09/2024 Encounters Encounter Location Date Provider Diagnosis [facility] [place] [address] [place] [address] 10/28/2023 Michael Gant Moderate persistent asthma J45.40 and Allergic rhinitis J30.9 [facility] [place] [address] [place] [address] 05/09/2024 Michael Gant Moderate persistent asthma J45.40 [...] Name:Michael Gant, 11/14/2024 10:45:00 AM, [address] [place], [address], Insurance Providers Payer Name Payer Address Payer Phone Subscriber Number Group Number Insured Name Patient Relationship to Insured Coverage Start Date Coverage End Date [facility] [address] [place] [phone] [id number] FEROZ SIMONS Self - patient is the insured Medical (General) History Medical History History ICD Code Hyperlipidemia Hypothyroidism Back pain Migraine headache G43.909 Allergic rhinitis J30.9 Moderate persistent asthma J45.40 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
--- OUTSIDE RECORDS SUMMARY | 2024-09-11 10:38 | XMS_ITS | Referral Summary ---
Author Organization [facility] Address [address] [place] [address] Care Team Providers Care Edi Analyst Name Role Phone Horace Stovall MD Primary [...] Not on file Procedures * Due to [place] [employer] law, this organization might not be sharing [...] to Health Maintenance Results * Due to [place] [employer] law, this organization might not be sharing [...] of this study. COMPARISON Compared to: 10/29/[address] [facility] Screening Digital Mammogram and 10/20/[address] [facility] Screening Digital Mammogram Bilateral Breast Findings: The breasts have scattered areas of fibroglandular density. No significant masses, calcifications or other abnormalities are seen. IMPRESSION No mammographic findings of malignancy. BI-RADS ATLAS category (overall): 1 - Negative MANAGEMENT Routine Screening Mammogram in 1 Year is recommended for bilateral. The patient was entered into a reminder system with a target date for their next mammogram. If this radiology report contains a blank impression section, it is an incomplete radiology report. Please contact the interpreting radiologist or applicable radiology division as soon as possible to obtain the completed interpretation. us Wil Wallace MD IMG BI PROCEDURES Final Res ult * DEXA Bone Density Axial (05/26/2022 8:53 AM EDT) Anatomical Region Laterality Modality Hip, L-spine Bone Densitometr y 05/26/2022 11:2 1 AM EDT Narrative 05/26/2022 11:24 AM EDT DEPARTMENT OF RADIOLOGY Patient: KAREN SIMONS Unit #: [id number] Ordering MD: DEREJE NUNEZ MD : 1950 Procedure: DEXA Bone Density Axial Age: 71 Location: XRAY Exam Date: 05/26/22 Status: REG [facility] Room/Bed: Primary MD: YONATAN MAC DO Patient Order: DEXABONE Additional Copy: DEREJE NUNEZ MD, YASIR DO - EXAM: BONE MINERAL DENSITY PROCEDURE: The bone mineral density (BMD) of the spine and proximal left femur was determined using an external X-ray source (Hologic). SITE: [facility] COMPARISON: Prior BMD of 2020 FINDINGS: L1-L4: BMD 0.98gm/cm2 T-Score -0.6 Z-score: 1.7 prior BMD(T) 1.03 (-0.2) Femoral neck: BMD 0.68gm/cm2 T-Score -1.5 Z-score: 0.4 Total hip: BMD 0.82 gm/cm2 T-Score -1 Z-score: 0.6 prior BMD(T) 0.88 (-0.6) The World [...] SIGNED BY: Arias Miranda MD 05/26/2022 11:22 AM [id number] Procedure Note Arias Miranda MD - 11/17/2022 DEPARTMENTOF RADIOLOGY Peng t: RONAK,KAREN Unit #:[id number] Ordering MD: DEREJE NUNEZ MD :1950 Procedure: DEXA Bone Density Axial Age:71 Location: XRAY ExamDate: 05/26/22 Status: REG CLIRoom/Bed: Primary MD: YONATAN MAC DO PatientAcct #: [id number] Order:DEXABONE Additional Copy: DEREJE NUNEZ MD, YASIR DO - EXAM: BONE MINERAL DENSITY PROCEDURE: The bone mineral density (BMD) of the spine and proximal leftfemur was determined using an external X-ray source (HoloEvergram). SITE: [facility] COMPARISON: Prior BMD [...] SIGNED BY: Arias Miranda MD 05/26/2022 11:22 [id number] us Dereje Nunez MD IMG DXA PROCEDURES [...] MD LAB BLOOD ORDERABLES Anayeli l Result Performing Organization Address City/[facility]/ZIP Co de Phone Number CONVERSION DATA LAB * Hepatitis C Antibody w/Reflex to HCV RNA, Quantitative PCR (05/15/2020 9:11 AM EDT) Hepatitis C Antibody Interpretation NONREACTIVE NONREACTIVE . CONVERSION DATA LAB 05/15/2020 9:11 AM EDT us Susy Rdz MD LAB BLOOD ORDERABLES Final Resu lt Performing Organization Address City/[facility] Co de Phone Number CONVERSION DATA LAB from Last 3 Months or Most Recently Relevant to Health Maintenance Insurance [facility] MCR Advance Directives Documents on File Type Date Recorded Patient Clay Roaster Expl anation Health Care Proxy 03/02/2022 03/02/2022 Health Care Proxy 08/07/2021 07/24/2021 Care Teams Edi Analyst Relationship Specialty Start Date End Date Horace Stovall MD [address] [place] [address] PCP - General Internal Medicine 08/01/23
--- OUTSIDE RECORDS SUMMARY | 2024-09-11 10:38 | XMS_ITS | Encounter Summary ---
Author Organization [facility] Address [address] [place] [address] Care Team Providers Care Sorority Mother Name Role Phone Physician, Pcp Unknown Primary Care Provider Sara vailable Encounter Details Date Type Department Care Team (Late st Contact Info) Description 03/22/2024 Lab Requisition [facility] - Main Lab [address] [place] [address] Joshua Arreaga MD [address] [facility] [address] [place] [address] Gross hematuria Social History Tobacco [...] AM EST) Final Diagnosis A. Urine, Voided, ([id number]): Negative for high grade urothelial carcinoma. Acute inflammatory cells are present. 04/02/2024 4:56 PM EST [facility] Clinical Information Gross hematuria R31.0 Urine cytology with reflex UroVysion ([facility]) 04/02/2024 4:56 PM EST [facility] Gross Description A. Urine, Voided, ([id number]): Received is one ThinPrep slide for cytology. 04/02/2024 4:56 PM EST [facility] Disclaimer Unless otherwise specified, all tissue is 10% NB formalin fixed and paraffin embedded. Technical pathology services provided by [facility] at [address], [place] [address] (CLIA #[id number]/Trino Retana MD, Superior Court Judge) 04/02/2024 4:56 PM EST [facility] Tissue Urine specimen from urethra / Unknown 03/20/2024 03/22/2024 2:13 PM EST us Joshua Arreaga MD LAB PATHOLOGY ORDERABLES Final Result [facility] [address] [place] [address], documented in this encounter Visit Diagnoses Diagnosis Gross hematuria documented in this encounter Care Teams Sorority Mother Relationship Specialty Start Date End Date Physician, Pcp Unknown PCP - General 03/22/24 documented as of this encounter
== END 2024-09-11 10:36 | disposition home or self-care (01) ==
LOC: HO.HMCH 09:51
PROVIDERS: PCP Physician Assistant; Visit Provider Physician Assistant
DX: E78.2 Mixed hyperlipidemia (principal); E03.9 Hypothyroidism, unspecified; R10.11 Right upper quadrant pain; J45.40 Moderate persistent asthma, uncomplicated

== ENCOUNTER 2024-10-25 06:48 | Outpatient (REF) | payer OTHER, SELFPAY ==
--- NOTE | ~2024-10-25 | CT_ITS ---
EXAMINATION: CT ABDOMEN WITHOUT CONTRAST CLINICAL INFORMATION: R10.11 - Right upper quadrant pain COMPARISON: None available. TECHNIQUE: Contiguous axial thin section helical images of the abdomen were performed without contrast. The data set was reformatted in the coronal and sagittal planes and reviewed on an independent workstation. This CT examination was performed using dose optimization techniques as appropriate, variously including the following: *Automated exposure control *Adjustment of mA and/or kV according to patient size (this includes techniques or standardized protocols for targeted exams where dose is matched to indication/reason for exam; i.e. extremities or head) *Use of iterative reconstruction technique FINDINGS: LOWER CHEST: No consolidation in the lung bases. No pleural effusion. LIVER: No focal lesions in the included liver. GALLBLADDER/BILIARY TREE: Normal gallbladder. No radiopaque gallstones. No biliary ductal dilatation. PANCREAS: Unremarkable. SPLEEN: No splenomegaly. ADRENAL GLANDS: No nodules KIDNEYS/URETERS: Right: No renal stones. There is a 0.4 cm stone in the proximal ureter that results in mild dilatation of the proximal ureter and renal pelvis (3:36, 6, 38). Extrarenal pelvis. No evidence of inflammatory changes surrounding the collecting system. Left: No renal/ureteral stones. Extrarenal pelvis. No hydronephrosis. BOWEL LOOPS: No bowel distention. Orally administered contrast opacifies the stomach and proximal small bowel loops. Multiple diverticula along the included descending colon. LYMPH NODES: No lymphadenopathy. VASCULAR: No abdominal aortic aneurysm. Scattered vascular calcifications. BONES: Degenerative changes. CT/CT abdomen wo IV con IMPRESSION: 1. Normal CT appearance of the gallbladder, without radiopaque gallstones. 2. Right proximal ureteral stone measuring 0.4 cm and resulting in mild prominence of the proximal collecting system. No additional renal or ureteral stones identified on either side. Electronically signed by: Mary Fonseca MD 10/25/2024 09:17 AM EDT
--- OUTSIDE RECORDS SUMMARY | 2024-10-25 06:50 | XMS_ITS | Clinical Summary ---
Author Organization [facility] [employer] [facility] lin Address [address] [place] [address] Care Team Providers Care Historic Site Administrator Name Role Phone No, Pcp LAUNCHING PAD MECHANIC Primary Care Provider Unavailabl e Allergies Active [...] or above (or HM Modifier)([facility]) 08/04/1967 Hepatitis C Virus Infection in Adolescents and Adults: Screening (or Modifier) ([facility]) 08/04/1967 SDWA Screening Reminder: Miriam brooks for all adults ([facility]) 08/04/1967 Tobacco Smoking Cessation: i n Adults excluding Women: Behavioral and Pharmacotherapy Interventions ([facility]) 08/04/1967 DTaP/Tdap/Td Vaccines ([facility]) (1 - Tdap) 1968 Colorectal Cancer Screening 45 -75 Yrs (or HM Modifier) 1994 Colorectal Cancer: FLEXIBLE SIGMOIDOSCOPY Screening every 5 yrs 1994 Colorectal Cancer: Fecal Imm unochemical Test (FIT) Annually [facility] 1994 Colorectal Cancer: High-sens itivity gFOBT Screening Annually [facility] 1994 Colorectal Cancer: Stool Col oguard Screening every 3 yrs 1994 Colorectal Cancer:CT Colonog kenya Screening every 5 yrs 1994 Pneumococcal Vaccination Scr eening: Patients 50+ yrs of age ([facility]) (1 of 1 - PCV) 08/04/1999 Zoster/Shingles Vaccine Seri es Screening: Adults aged 18+ yrs (or HM Modifiers)([facility]) (1 of 2) 08/04/1999 Osteoporosis Screening to Pr event Fractures: Women aged 65 years+ ([facility]) 2014 RSV Vaccines (1 - 1-dose 75+ series) 2024 Flu Vaccination: Ages 65+: Y early High Dose Recommended (or Modifier)([facility]) 09/21/2024 10/31/2017, 7 [employer] Not on file Insurance MEDICARE Care Teams Historic Site Administrator Relationship Specialty Start Date End Date No, Pcp, LAUNCHING PAD MECHANIC N/A Do not use PCP - General 11/21/19
--- OUTSIDE RECORDS SUMMARY | 2024-10-25 06:50 | XMS_ITS | Clinical Summary ---
Author Organization [facility] Address [address] [place] [address] Care Team Providers Care Talend Developer Name Role Phone Horace Stovall MD Primary Care Provider [phone] Allergies Active Allergy Reactions Criticality Noted Date [...] 05/10/2022 , 07/24/2021, 07/24/2021, Additional history exists Alcohol/Substance Use Screening 02/22/2024 Depression Screening and Follow-Up 02/22/2024 11/23/2022 Health Care Proxy Review 02/22/2024 Social Drivers of Health Annual Screening 02/22/2024 COVID-19 Vaccine ( season) 2024 12/01/2022, 12/01/2021, 12/01/2021, Additional history exists Influenza Vaccine (#1) 2024 3, 12/01/2022, 12/01/2021, Additional history exists Pneumococcal Vaccine: 50+ Years Completed 04/19/2017, 05/16/2015, 08/22/2006 Zoster Vaccines Completed 01/02/2020, 10/22, 11/02/2019, Additional history exists Hepatitis C Screening Completed 05/15/2020 Osteoporosis Screening Completed 05/26/2022, 2020 RSV Vaccine (60+ years old and patients) Completed 12/08/2022 Mammogram Discontinued 12/27/2022, 09/2021, 10/20/2020 Hepatitis B Vaccines Aged Out No long er eligible based on patient's age to complete this topic Procedures * Due to [employer] law, this organization might not be sharing [...] to Health Maintenance Results * Due to [place] [employer] law, this organization might not be sharing [...] 10/29/2021 LYRIC Screening Digital Mammogram and 10/20/2020 [facility] Screening Digital Mammogram Bilateral [...] OF RADIOLOGY Patient: KAREN SIMONS Unit #: [id number] Ordering MD: DEREJE NUNEZ MD : 1950 Procedure: DEXA Bone Density Axial Age: 71 Location: XRAY Exam Date: 05/26/22 Status: [facility] Room/Bed: Primary MD: YONATAN MAC DO Patient Order: DEXABONE Additional Copy: DEREJE NUNEZ MD, YASIR DO - EXAM: BONE MINERAL DENSITY PROCEDURE: The bone mineral density (BMD) of the spine and proximal left femur was determined using an external X-ray source (Hologic). SITE: [facility] COMPARISON: Prior BMD of 2020 FINDINGS: [...] BY: Arias Miranda MD 05/26/2022 11:22 AM [id number] Procedure Note Arias Miranda MD - 11/17/2022 DEPARTMENTOF RADIOLOGY Peng t: KAREN SIMONS Unit #:[id number] Ordering MD: DEREJE NUNEZ MD :1950 Procedure: DEXA Bone Density Axial Age:71 Location: XRAY ExamDate: 05/26/22 Status: REG CLIRoom/Bed: Primary MD: YONATAN MAC DO PatientAcct #: [id number] Order:DEXABONE Additional Copy: DEREJE NUNEZ MD, YASIR DO - EXAM: BONE MINERAL DENSITY PROCEDURE: The bone mineral density (BMD) of the spine and proximal leftfemur was determined using an external X-ray source (Hologic). SITE: [facility] COMPARISON: Prior BMD of 2020 FINDINGS: [...] SIGNED BY: Arias Miranda MD 05/26/2022 11:22 [place] [id number] Dereje Nunez MD IMG DXA PROCEDURES Final [...] Most Recently Relevant to Health Maintenance Insurance [facility] MCR Advance Directives Documents on File Type Date Recorded Patient Supervisor Tree Trimming Expl anation Health Care Proxy 03/02/2022 03/02/2022 Health Care Proxy 08/07/2021 07/24/2021 Care Teams Talend Developer Relationship Specialty Start Date End Date Horace Stovall MD [address] [place] [id number] PCP - General Internal Medicine 08/01/23
--- OUTSIDE RECORDS SUMMARY | 2024-10-25 06:51 | XMS_ITS | Encounter Summary ---
Author Organization [employer] Address [address] [place] [address] Care Team Providers Care Seamless Hosiery Knitter Name Role Phone Physician, Pcp Unknown Primary Care Provider Sara vailable Encounter Details Date Type Department Care Team (Late st Contact Info) Description 03/22/2024 Lab Requisition [facility] - Main Lab [address] [facility] [place] [address] Joshua Arreaga MD [address] [facility] [address] [place] [address] Gross hematuria Social History Tobacco [...] AM EST) Final Diagnosis A. Urine, Voided, ([id number]): Negative for high grade urothelial carcinoma. Acute inflammatory cells are present. 04/02/2024 4:56 PM EST [facility] Clinical Information Gross hematuria R31.0 Urine cytology with reflex UroVysion ([facility]) 04/02/2024 4:56 PM EST [facility] Gross Description A. Urine, Voided, ([id number]): Received is one ThinPrep slide for cytology. 04/02/2024 4:56 PM EST [facility] Disclaimer Unless otherwise specified, all tissue is 10% NB formalin fixed and paraffin embedded. Technical pathology services provided by [facility] at [address] [facility] [address], [place] [address] (CLIA #[id number]/Trino Retana MD, Excel Developer) 04/02/2024 4:56 PM EST [facility] Tissue Urine specimen from urethra / Unknown 03/20/2024 03/22/2024 2:13 PM EST us Joshua Arreaga MD LAB PATHOLOGY ORDERABLES Final Result [facility] [address] [place] [address], documented in this encounter Visit Diagnoses Diagnosis Gross hematuria documented in this encounter Care Teams Seamless Hosiery Knitter Relationship Specialty Start Date End Date Physician, Pcp Unknown PCP - General 03/22/24 documented as of this encounter
--- OUTSIDE RECORDS SUMMARY | 2024-10-25 06:51 | XMS_ITS | Clinical Summary ---
Author Organization [address] [facility] Address [address] [place] [address] Phone Care Team Providers Care Tobacco Shaker Name Role Phone Physician, Pcp Unknown Primary [...] Health Maintenance Due Date Last Done Comments DTaP,Tdap,and Td Vaccines (1 - Tdap) 1968 Pneumococcal Vaccine: 50+ Ye ars (1 of 1 - PCV) 08/04/1999 Zoster Vaccines (1 of 2) 08/04/1999 Depression Screening 02/22/2024 Colorectal Cancer Screening: Colonoscopy 03/22/2024 Falls Risk Assessment 03/22/2024 Hepatitis C Screening 03/22/2024 Medicare Annual Wellness Visit 03/22/2024 Osteoporosis Screening (Bone Density Screening) 03/22/2024 Social Influencers of Health Screening 03/22/2024 RSV Immunization Adult Patie nts (1 - 1-dose 75+ series) 2024 COVID-19 Vaccine ( - 2023-2 5 season) 2024 Influenza Vaccine (#1) 2024 HIB Vaccines Aged Out No longer [...] HEALTHCARE MEDICARE [employer] MEDICARE Care Teams Tobacco Shaker Relationship Specialty Start Date End Date Physician, Pcp Unknown PCP - General 03/22/24
--- OUTSIDE RECORDS SUMMARY | 2024-10-25 06:51 | XMS_ITS | Patient Health Record ---
Author Organization [facility] Address [address] [place], [place] [id number] Care Team Providers Care Magnetic Resonance Technologist Name Role Phone Molly SERNA, Lee Primary Care Provider Michael Leonard Unavailable [phone] Tono Josh Unavailable Unavailable Allergies Allergen (clinical [...] W/U Status Risk Notes Problem Allergic rhinitis (23055739) Allergic rhinitis (J30.9) Active confirmed Problem Moderate persistent asthma (484405515) Moderate persistent asthma (J45.40) Active confirmed Vital Signs Heart Rate 68 /min 05/09/2024 Respiratory Rate 16 /min 05/09/2024 Blood pressure diastolic 70 mm Hg 05/09/2024 Height 66 in 05/09/2024 Blood pressure systolic 112 mm Hg 05/09/2024 Weight 125 lbs 05/09/2024 BMI 20.17 kg/m2 05/09/2024 Encounters Encounter Location Date Provider Diagnosis [facility] [address] [place] [address] 10/28/2023 Michael Gant Moderate persistent asthma J45.40 and Allergic rhinitis J30.9 [facility] [address] [place] [address] 05/09/2024 Michael Gant Moderate persistent asthma J45.40 [...] Name:Michael Gant, 11/14/2024 10:45:00 AM, [address] [place], [address], Insurance Providers Payer Name Payer Address Payer Phone Subscriber Number Group Number Insured Name Patient Relationship to Insured Coverage Start Date Coverage End Date [facility] [address] [place] [address] [id number] FEROZ SIMONS Self - patient is the insured Medical (General) History Medical History History ICD Code Hyperlipidemia Hypothyroidism Back pain Migraine headache G43.909 Allergic rhinitis J30.9 Moderate persistent asthma J45.40 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
[2024-10-25] MEDS: Barium Sulfate Oral (Vanilla) 450 ML ORAL.SUSP PO (08:35)
== END 2024-10-25 06:49 | disposition home or self-care (01) ==
LOC: HO.CT 06:48
PROVIDERS: PCP Physician Assistant; Visit Provider Physician Assistant
DX: R10.11 Right upper quadrant pain (principal)
CPT/HCPCS: 74150

== ENCOUNTER → 2024-10-25 06:50 | Outpatient (BNV) | payer OTHER, SELFPAY | PROVIDERS: PCP Physician Assistant; Visit Provider Radiology Body Imaging | DX: N13.2 Hydronephrosis with renal and ureteral calculous obstruction (principal) | CPT/HCPCS: 74150 ==

== ENCOUNTER 2024-11-02 15:16 | Outpatient (AMB) | payer OTHER, SELFPAY ==
--- NOTE | 2024-11-02 15:30 | MHC.OFFVIS ---
Intake Visit Reasons: ureteral stone Intake Note: patient presents today for: new pt ureteral stone urology medications: none blood thinners: none CT done: 10/25/24 Excavator Operator Required: No Accompanied by: Self / Same As Patient Allergies SKYLAR Inhibitors Adverse Reaction (Mild, Verified 11/02/24 15:31) Cough amlodipine (From Norvasc) Adverse Reaction (Mild, Verified 11/02/24 15:31) Rash HPI Comments Details: Karen is a pleasant female. She is a patient of Dr. Butts. She is seen for the following urologic conditions - nephrolithiasis Initial stone Persistent pain right side since April CT - Right: No renal stones. There is a 0.4 cm stone in the proximal ureter that results in mild dilatation of the proximal ureter and renal pelvis Printed copy provided Is interested in intervention Pain has been steady at proximally 6 Discussed possible ESWL right side PFS Medical History Mild intermittent asthma, uncomplicated Personal history of colonic polyps Lesion of throat SI joint arthritis Chronic osteoarthritis Osteoarthritis of sacroiliac joint Osteoarthritis of right hip Nabothian cyst Lumbar spondylosis SHEBA positive Colon polyps Closed fracture of right ankle B12 deficiency Asthma Migraine Hyperlipidemia Hypertension Hypothyroidism Allergic rhinitis Osteopenia Surgical History History of hysterectomy, supracervical H/O colonoscopy History of cataract surgery S/P left knee arthroscopy History of hip surgery Family History Father Bladder cancer Brother Bladder cancer Social History Housing: House Patient Tobacco Use Status: Never used Tobacco e-Cigarette/Vaping Use: Never Used Second Hand Smoke Exposure: No service: No Current occupational status: retired Current occupation: rt handed Cognitive needs: No Hearing needs: No Vision needs: Yes Review of Systems Const Denies chills and Denies fever(s) Card Reports no additional complaints and Denies syncope Resp Denies cough GI Denies abdominal pain and Denies heartburn Reports as per HPI and Denies change in libido Neuro Denies syncope Psych Denies change in libido Endo Denies change in libido Physical Exam Const General: cooperative, healthy appearing, comfortable and no acute distress Orientation/consciousness: patient oriented x3 HEENT Face and sinus: Yes normal facial exam Mouth: moist mucous membranes Neck Neck: Yes normal visual inspection, Yes full ROM and Yes trachea midline Chest Chest palpation & inspection: normal inspection of the chest Resp Effort & Inspection: normal respiratory effort, able to speak in complete sentences and no respiratory distress GI Inspection: Yes normal to inspection Back/Spine/Pelvis Cervical Spine: normal cervical lordosis Thoracic/Lumbar Spine: thoracic and lumbar spine normal to inspection Skin General skin exam: no rashes or lesions noted Neuro General: patient oriented x3, gait normal, tone normal and moves all extremities Extrem General: Yes normal to inspection and Yes capillary refill normal Results AMB Urinalysis, Automated UA Leukoctes 15 Meet/uL Last Edit by FREDO Mathews on 11/02/24 15:48 UA Nitrite Last Edit by FREDO Mathews on 11/02/24 15:48 UA Urobilinogen 0.2 mg/dL Last Edit by FREDO Mathews on 11/02/24 15:48 UA Protein 0 mg/dL Last Edit by Greta Wofle CCM on 11/02/24 15:48 UA pH 7.0 Last Edit by FREDO Mathews on 11/02/24 15:48 UA Blood 0 Volodymyr/uL Last Edit by FREDO Mathews on 11/02/24 15:48 UA Specific [place] 1.005 Last Edit by FREDO Mathews on 11/02/24 15:48 UA Ketone Last Edit by FREDO Mathews on 11/02/24 15:48 UA Bilirubin 0 mg/dL Last Edit by FREDO Mathews on 11/02/24 15:48 UA Glucose 0 mg/dL Last Edit by Greta Wolfe CCM on 11/02/24 15:48 Results Reviewed Results Reviewed: Laboratory Last Values Urine pH (Auto) 7.0 11/02/24 15:45 Specific [place] (Auto) 1.005 11/02/24 15:45 Urine Protein (Auto) 0 mg/dL 11/02/24 15:45 Glucose (UA)(Auto) 0 mg/dL 11/02/24 15:45 Urine Blood (Auto) 0 Volodymyr/uL 11/02/24 15:45 Urine Bilirubin (Auto) 0 mg/dL 11/02/24 15:45 Urine Urobilinogen (Auto) 0.2 mg/dL 11/02/24 15:45 Leukocyte Esterase (Auto) 15 Meet/uL 11/02/24 15:45 Assessment & Plan Assessment & Plan (1) Right ureteral stone: Code(s): N20.1 - Calculus of ureter Category: Medical Plan Extracorporeal Shock Wave Lithotripsy We discussed the nature of the decision and reasonable alternatives for performing the above surgery. Interventions include chemical dissolution, ESWL, ureteroscopy with laser lithotripsy and stent placement, PCNL. Options such as medical therapy were discussed. The relative uncertainties and benefits related to each alternate procedure were adequately discussed. General surgical risks including, but not limited to, pain, bleeding, infection, myocardial infarction, pulmonary embolus, deep vein thrombosis and cerebrovascular accident which may result in further hospitalization were discussed. Full disclosure of the procedure as well as all major risks, benefits and complications were discussed including but not limited to risks of bleeding, injury to the kidney with hematoma or gloria-hematoma, failure to fragments stone, potential for ureteric obstruction from stone passage and need for secondary procedures. There is a small long-term risk of hypertension and a question yee of diabetes. Success rate of fragmentation and passage is approximately 70- 75%. This is compared to the risks and benefits for ureteroscopy which has a higher success rate but is a more invasive procedure. The success rate of the procedure was discussed. Success of the procedure in the short-term does not necessarily guarantee that long-term success will be maintained. Suitable follow up will need to be maintained. The patient showed understanding of the discussion as well as the typical recovery time, and the outpatient nature of this procedure. Opportunity was given for questions. Repeat-back protocol used to confirm understanding. They wish to proceed with right ESWL Orders: Orders AMB Urinalysis Automated Today Z13.9 - Encounter for screening, unspecified Patient Instructions: This note is constructed using voice recognition software. While every effort has been made to ensure accuracy database manager errors may have been included. Imaging studies, laboratory and physical exam results were discussed and reviewed in detail. No major barriers to patient understanding were identified. An opportunity to ask questions regarding the treatment plan was provided. All questions were answered. The patient expressed understanding and agreement with the above treatment plan. The patient is aware they should contact our office by phone for worsening of their current condition or the appearance of new urologic symptoms. Compliance is encouraged with any medications and followup testing that is ordered. It is a privilege to participate in the urologic care of your patient. If you have any questions or concerns regarding treatment for the above conditions, or other urologic issues, please do not hesitate to contact me. The office telephone contact is [phone]. Sincerely, Dr Antonio Good MD, [facility] - Urology Compassionate Specialist Care for the Genitourinary System Coding Level of Care Code New Pt Level 4 (55713) Diagnoses Right ureteral stone N20.1
--- OUTSIDE RECORDS SUMMARY | 2024-11-02 17:39 | XMS_ITS | Encounter Summary ---
Author Organization [employer] Address [address] [place] [address] Care Team Providers Care Water Control Station Engineer Name Role Phone Physician, Pcp Unknown Primary Care Provider Sara vailable Encounter Details Date Type Department Care Team (Late st Contact Info) Description 03/22/2024 Lab Requisition [facility] - Main Lab [address] [facility] [place] [address] Joshua Arreaga MD [address] [facility] [address] [place] [address] Gross hematuria Social History Tobacco [...] AM EST) Final Diagnosis A. Urine, Voided, ([id number]): Negative for high grade urothelial carcinoma. Acute inflammatory cells are present. 04/02/2024 4:56 PM EST [facility] Clinical Information Gross hematuria R31.0 Urine cytology with reflex UroVysion ([facility]) 04/02/2024 4:56 PM EST [facility] Gross Description A. Urine, Voided, ([id number]): Received is one ThinPrep slide for cytology. 04/02/2024 4:56 PM EST [facility] Disclaimer Unless otherwise specified, all tissue is 10% NB formalin fixed and paraffin embedded. Technical pathology services provided by [facility] at [address] [facility] [address], [place] [address] (CLIA #[id number]/Trino Retana MD, Correctional Officer Lieutenant) 04/02/2024 4:56 PM EST [facility] Tissue Urine specimen from urethra / Unknown 03/20/2024 03/22/2024 2:13 PM EST us Joshua Arreaga MD LAB PATHOLOGY ORDERABLES Final Result [facility] [address] [place] [address], documented in this encounter Visit Diagnoses Diagnosis Gross hematuria documented in this encounter Care Teams Water Control Station Engineer Relationship Specialty Start Date End Date Physician, Pcp Unknown PCP - General 03/22/24 documented as of this encounter
--- OUTSIDE RECORDS SUMMARY | 2024-11-02 17:39 | XMS_ITS | Clinical Summary ---
Author Organization [facility] Address [address] [place] [address] Care Team Providers Care Senior Manufacturing Engineer Name Role Phone Horace Stovall MD Primary [...] Influenza, High Dose Seasona l, Preservative Free (FLUZONE HIGH-DOSE) 10/31/2017,11/20/2016 Influenza, High Dose Seasona l, Quadrivalent [...] complete this topic Procedures * Due to [place] [employer] law, this organization might not be sharing [...] Health Maintenance Results * Due to [place] [employer] law, this organization might not be sharing [...] 10/29/2021 LYRIC Screening Digital Mammogram and 10/20/2020 [facility] Screening Digital Mammogram Bilateral Breast Findings: The [...] OF RADIOLOGY Patient: KAREN SIMONS Unit #: [id number] Ordering MD: DEREJE NUNEZ MD : 1950 Procedure: DEXA Bone Density Axial Age: 71 Location: XRAY Exam Date: 05/26/22 Status: [facility] Room/Bed: Primary MD: YONATAN MAC DO Patient Order: DEXABONE Additional Copy: DEREJE NUNEZ MD, YASIR DO - EXAM: BONE MINERAL DENSITY PROCEDURE: The bone mineral density (BMD) of the spine and proximal left femur was determined using an external X-ray source (Hologic). SITE: [facility] COMPARISON: Prior BMD of 2020 FINDINGS: L1-L4: [...] BY: Arias Miranda MD 05/26/2022 11:22 AM [id number] Procedure Note Arias Miranda MD - 11/17/2022 DEPARTMENTOF RADIOLOGY Patien t: KAREN SIMONS Unit #:[id number] Ordering MD: DEREJE NUNEZ MD :1950 Procedure: DEXA Bone Density Axial Age:71 Location: XRAY ExamDate: 05/26/22 Status: REG CLIRoom/Bed: Primary MD: YONATAN MAC DO PatientAcct #: [id number] Order:DEXABONE Additional Copy: DEREJE NUNEZ MD, YASIR DO - EXAM: BONE MINERAL DENSITY PROCEDURE: The bone mineral density (BMD) of the spine and proximal leftfemur was determined using an external X-ray source ([employer]). SITE: [facility] COMPARISON: Prior BMD of 2020 FINDINGS: L1-L4: [...] SIGNED BY: Arias Miranda MD 05/26/2022 11:22 [id number] us Dereje Nunez MD IMG DXA PROCEDURES [...] Most Recently Relevant to Health Maintenance Insurance [facility] MCR Advance Directives Documents on File Type Date Recorded Patient Scientific Illustrator Expl anation Health Care Proxy 03/02/2022 03/02/2022 Health Care Proxy 08/07/2021 07/24/2021 Care Teams Senior Manufacturing Engineer Relationship Specialty Start Date End Date Horace Stovall MD [address] [place] [id number] PCP - General Internal Medicine 08/01/23
--- OUTSIDE RECORDS SUMMARY | 2024-11-02 17:39 | XMS_ITS | Clinical Summary ---
Author Organization [facility] Address [address] [place] [address] Phone Care Team Providers Care Basting Marker Name Role Phone Physician, Pcp Unknown Primary [...] HEALTHCARE MEDICARE UNITED HE[employer] MEDICARE Care Teams Basting Marker Relationship Specialty Start Date End Date Physician, Pcp Unknown PCP - General 03/22/24
--- OUTSIDE RECORDS SUMMARY | 2024-11-02 17:39 | XMS_ITS | Clinical Summary ---
Author Organization [facility] [email or web address] [facility] Address [address] [place] [address] Care Team Providers Care Centrifuge Operator Name Role Phone No, Pcp JIG GRINDER Primary Care Provider Unavailabl e Allergies Active Allergy Reactions Criticality Noted Date Comments Reuben Inhibitors Other (See Comments) 11/20/2016 Amlodipine Rash Low 11/20/2016 Immunizations Immunization Administration Dates Next Due Fluzone Trivalent High [...] Adults 18 yrs or above (or HM Modifier)([facility]) 08/04/1967 Hepatitis C Virus Infection in Adolescents and Adults: Screening (or Modifier) ([facility]) 08/04/1967 SDUT Screening Reminder: Miriam brooks for all adults ([facility]) 08/04/1967 Tobacco Smoking Cessation: i n Adults excluding Women: Behavioral and Pharmacotherapy Interventions ([facility]) 08/04/1967 DTaP/Tdap/Td Vaccines ([facility]) (1 - Tdap) 1968 Colorectal Cancer Screening 45 -75 Yrs (or HM Modifier) 1994 Colorectal Cancer: FLEXIBLE SIGMOIDOSCOPY Screening every 5 yrs 1994 Colorectal Cancer: Fecal Imm unochemical Test (FIT) Annually [facility] 1994 Colorectal Cancer: High-sens itivity gFOBT Screening Annually [facility] 1994 Colorectal Cancer: Stool Col oguard Screening every 3 yrs 1994 Colorectal Cancer:CT Colonog kenya Screening every 5 yrs 1994 Pneumococcal Vaccination Scr eening: Patients 50+ yrs of age ([facility]) (1 of 1 - PCV) 08/04/1999 Zoster/Shingles Vaccine Seri es Screening: Adults aged 18+ yrs (or HM Modifiers)([facility]) (1 of 2) 08/04/1999 Osteoporosis Screening to Pr event Fractures: Women aged 65 years+ ([facility]) 2014 RSV Vaccines (1 - 1-dose 75+ series) 2024 Flu Vaccination: Ages 65+: Y early High Dose Recommended (or Modifier)([facility]) 09/21/2024 10/31/2017, 7 COVID-19 Vaccine Screening: Initial Series and Booster Status ([facility]) ( season) 2024 Medical [id number] MEDICARE Care Teams Centrifuge Operator Relationship Specialty Start Date End Date No, Pcp, JIG GRINDER N/A Do not use PCP - General 11/21/19
--- OUTSIDE RECORDS SUMMARY | 2024-11-02 17:39 | XMS_ITS | Patient Health Record ---
Author Organization [facility] Address [address] [place], [place] [id number] Care Team Providers Care Demonstrator Knitting Name Role Phone Molly SERNA, Lee Primary Care Provider Michael Leonard Unavailable [phone] Tono Josh Unavailable Unavailable Allergies Allergen (clinical [...] W/U Status Risk Notes Problem Allergic rhinitis (87726903) Allergic rhinitis (J30.9) Active confirmed Problem Moderate persistent asthma (070128440) Moderate persistent asthma (J45.40) Active confirmed Vital Signs Heart Rate 68 /min 05/09/2024 Respiratory Rate 16 /min 05/09/2024 Blood pressure diastolic 70 mm Hg 05/09/2024 Height 66 in 05/09/2024 Blood pressure systolic 112 mm Hg 05/09/2024 Weight 125 lbs 05/09/2024 BMI 20.17 kg/m2 05/09/2024 Encounters Encounter Location Date Provider Diagnosis [facility] [place] [address] [place] [address] 05/09/2024 Michael Gant Moderate persistent asthma J45.40 [...] Name:Michael Gant, 11/14/2024 10:45:00 AM, [address] [place], [address], Insurance Providers Payer Name Payer Address Payer Phone Subscriber Number Group Number Insured Name Patient Relationship to Insured Coverage Start Date Coverage End Date [facility] [address] [place] [address] [id number] FEROZ SIMONS Self - patient is the insured Medical (General) History Medical History History ICD Code Hyperlipidemia Hypothyroidism Back pain Migraine headache G43.909 Allergic rhinitis J30.9 Moderate persistent asthma J45.40 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
== END 2024-11-02 16:11 | disposition home or self-care (01) ==
LOC: HO.HUSH 15:17
PROVIDERS: PCP Physician Assistant; Visit Provider Urology
DX: N20.1 Calculus of ureter (principal); Z13.9 Encounter for screening, unspecified
CPT/HCPCS: 99204

== ENCOUNTER → 2024-11-02 15:16 | Outpatient (BNVA) | payer OTHER, SELFPAY | PROVIDERS: PCP Physician Assistant; Visit Provider Urology | DX: N20.1 Calculus of ureter (principal) | CPT/HCPCS: 81003 ==

== ENCOUNTER 2024-11-07 07:45 | Day surgery (SDC) | payer MEDICARE, SELFPAY ==
--- OUTSIDE RECORDS SUMMARY | 2024-11-05 14:32 | XMS_ITS | Clinical Summary ---
Author Organization [facility] Address [address] [place] [address] Care Team Providers Care Refrigerator Assembler Name Role Phone Horace Stovall MD Primary [...] complete this topic Procedures * Due to [place] [employer] law, this organization might not be sharing [...] to Health Maintenance Results * Due to [place] [employer] law, this organization might not be sharing [...] LYRIC Screening Digital Mammogram and 10/20/2020 [facility] Screening Digital Mammogram Bilateral Breast Findings: The [...] OF RADIOLOGY Patient: KAREN SIMONS Unit #: [id number] Ordering MD: DEREJE NUNEZ MD : 1950 Procedure: DEXA Bone Density Axial Age: 71 Location: XRAY Exam Date: 05/26/22 Status: [facility] Room/Bed: Primary MD: YONATAN MAC DO Patient Order: DEXABONE Additional Copy: DEREJE NUNEZ MD, YASIR DO - EXAM: BONE MINERAL DENSITY PROCEDURE: The bone mineral density (BMD) of the spine and proximal left femur was determined using an external X-ray source (Hologic). SITE: [facility] COMPARISON: Prior BMD of 2020 FINDINGS: [...] BY: Arias Miranda MD 05/26/2022 11:22 AM [id number] Procedure Note Arias Miranda MD - 11/17/2022 DEPARTMENTOF RADIOLOGY Patien t: KAREN SIMONS Unit #:[id number] Ordering MD: DEREJE NUNEZ MD :1950 Procedure: DEXA Bone Density Axial Age:71 Location: XRAY ExamDate: 05/26/22 Status: REG CLIRoom/Bed: Primary MD: YONATAN MAC DO PatientAcct #: [id number] Order:DEXABONE Additional Copy: DEREJE NUNEZ MD, YASIR DO - EXAM: BONE MINERAL DENSITY PROCEDURE: The bone mineral density (BMD) of the spine and proximal leftfemur was determined using an external X-ray source ([employer]). SITE: [facility] COMPARISON: Prior BMD of 2020 FINDINGS: [...] SIGNED BY: Arias Miranda MD 05/26/2022 11:22 [id number] us Dereje Nunez MD IMG DXA PROCEDURES [...] Most Recently Relevant to Health Maintenance Insurance [facility] MCR Advance Directives Documents on File Type Date Recorded Patient Briquette Maker Expl anation Health Care Proxy 03/02/2022 03/02/2022 Health Care Proxy 08/07/2021 07/24/2021 Care Teams Refrigerator Assembler Relationship Specialty Start Date End Date Horace Stovall MD [address] [place] [address] PCP - General Internal Medicine 08/01/23
--- OUTSIDE RECORDS SUMMARY | 2024-11-05 14:32 | XMS_ITS | Patient Health Record ---
Author Organization [facility] Address [address] [place], [place] [id number] Care Team Providers Care Certified Alcohol And Drug Counselor Name Role Phone Molly SERNA, Lee Primary Care Provider Michael Leonard Unavailable [phone] Tono Josh Unavailable Unavailable Allergies Allergen (clinical [...] W/U Status Risk Notes Problem Allergic rhinitis (28915527) Allergic rhinitis (J30.9) Active confirmed Problem Moderate persistent asthma (190492749) Moderate persistent asthma (J45.40) Active confirmed Vital Signs Heart Rate 68 /min 05/09/2024 Respiratory Rate 16 /min 05/09/2024 Blood pressure diastolic 70 mm Hg 05/09/2024 Height 66 in 05/09/2024 Blood pressure systolic 112 mm Hg 05/09/2024 Weight 125 lbs 05/09/2024 BMI 20.17 kg/m2 05/09/2024 Encounters Encounter Location Date Provider Diagnosis [facility] [place] [address] [place] [address] 05/09/2024 Michael Gant Moderate persistent asthma J45.40 [...] Lateral 08/04/2021 Next Appt Details Provider Name:Michael Gatn, 11/14/2024 10:45:00 AM, [address] [place], [address], Insurance Providers Payer Name Payer Address Payer Phone Subscriber Number Group Number Insured Name Patient Relationship to Insured Coverage Start Date Coverage End Date [facility] [address] [place] [address] [id number] FEROZ SIMONS Self - patient is the insured Medical (General) History Medical History History ICD Code Hyperlipidemia Hypothyroidism Back pain Migraine headache G43.909 Allergic rhinitis J30.9 Moderate persistent asthma J45.40 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
--- OUTSIDE RECORDS SUMMARY | 2024-11-05 14:32 | XMS_ITS | Clinical Summary ---
Author Organization [facility] Address [address] [place] [address] Care Team Providers Care Windows Infrastructure Engineer Name Role Phone No, Pcp EVENT PROMOTER Primary Care Provider Unavailabl e Allergies Active [...] (or Modifier) ([facility]) 08/04/1967 SDMA Screening Reminder: Miriam brooks for all adults ([facility]) 08/04/1967 Tobacco Smoking Cessation: i n Adults excluding Women: Behavioral and Pharmacotherapy Interventions ([facility]) 08/04/1967 DTaP/Tdap/Td Vaccines ([facility]) (1 - Tdap) 1968 Colorectal Cancer Screening 45 -75 Yrs (or HM Modifier) 1994 Colorectal Cancer: FLEXIBLE SIGMOIDOSCOPY Screening every 5 yrs 1994 Colorectal Cancer: Fecal Imm unochemical Test (FIT) Annually [facility] 1994 Colorectal Cancer: High-sens itivity [...] Modifier)([facility]) 09/21/2024 10/31/2017, 7 COVID-19 Vaccine Screening: Initial Series and Booster Status ([facility]) ( season) 2024 [employer] [id number] MEDICARE Care Teams Windows Infrastructure Engineer Relationship Specialty Start Date End Date No, Pcp, EVENT PROMOTER N/A Do not use PCP - General 11/21/19
--- OUTSIDE RECORDS SUMMARY | 2024-11-05 14:32 | XMS_ITS | Clinical Summary ---
Author Organization [address] [facility] Address [address] [place] [address] Phone Care Team Providers Care Upholstery Trimmer Name Role Phone Physician, Pcp Unknown Primary [...] HEALTHCARE MEDICARE UNITED HEALTHCARE MEDICARE Care Teams Upholstery Trimmer Relationship Specialty Start Date End Date Physician, Pcp Unknown PCP - General 03/22/24
--- OUTSIDE RECORDS SUMMARY | 2024-11-05 14:32 | XMS_ITS | Encounter Summary ---
Author Organization [facility] Address [address] [place] [address] Care Team Providers Care Fire Assistant Name Role Phone Physician, Pcp Unknown Primary Care Provider Sara vailable Encounter Details Date Type Department Care Team (Late st Contact Info) Description 03/22/2024 Lab Requisition [facility] Main Lab [address] [facility] [place] [address] Joshua Arreaga MD [address] [facility] [address] [place] [address] Gross hematuria Social History Tobacco [...] AM EST) Final Diagnosis A. Urine, Voided, ([id number]): Negative for high grade urothelial carcinoma. Acute inflammatory cells are present. 04/02/2024 4:56 PM EST [facility] Clinical Information Gross hematuria R31.0 Urine cytology with reflex UroVysion ([facility]) 04/02/2024 4:56 PM EST [facility] Gross Description A. Urine, Voided, ([id number]): Received is one ThinPrep slide for cytology. 04/02/2024 4:56 PM EST [facility] Disclaimer Unless otherwise specified, all tissue is 10% NB formalin fixed and paraffin embedded. Technical pathology services provided by [facility] at [address], [place] [address] (CLIA #[id number]/Trino Retana MD, Tassel Snipper) 04/02/2024 4:56 PM EST [facility] Tissue Urine specimen from urethra / Unknown 03/20/2024 03/22/2024 2:13 PM EST us Joshua Arreaga MD LAB PATHOLOGY ORDERABLES Final Result [facility] [address] [place] [address], documented in this encounter Visit Diagnoses Diagnosis Gross hematuria documented in this encounter Care Teams Fire Assistant Relationship Specialty Start Date End Date Physician, Pcp Unknown PCP - General 03/22/24 documented as of this encounter
--- NOTE | 2024-11-06 10:04 | P.CONAN_ITS ---
Documented by User: Dina Richardson NP 11/06/24 10:06 HPI - Anesthesia Eval Consult details Narrative: 74yo F for Right Lithotripsy ESW s/p colo with TIVA 04/2024 [facility] Active Problems Active Problems: All Active Problems Right ureteral stone (Acute) RUQ abdominal pain (Acute) Annual wellness visit (Acute) Well woman exam (Acute) Benign paroxysmal positional vertigo (Acute) Right shoulder tendonitis (Acute) Cervical cancer screening (Acute) De Quervain's tenosynovitis, right (Acute) Tenderness of anatomical snuffbox (Acute) Right hand fracture (Acute) Closed right fibular fracture (Acute) Tubular adenoma of colon (Acute) Tendinopathy of right shoulder (Acute) B12 deficiency (Acute) Migraine (Acute) Family history of bladder cancer (Acute) Breast cancer screening (Acute) Osteopenia (Acute) Hypothyroidism (Acute) Hypertension (Acute) Hyperlipidemia (Acute) Asthma (Acute) Colon polyps (Acute) Past Medical History Medical History Mild intermittent asthma, uncomplicated Personal history of colonic polyps Lesion of throat SI joint arthritis Chronic osteoarthritis Osteoarthritis of sacroiliac joint Osteoarthritis of right hip Nabothian cyst Lumbar spondylosis SHEBA positive Colon polyps Closed fracture of right ankle B12 deficiency Asthma Migraine Hyperlipidemia Hypertension Hypothyroidism Allergic rhinitis Osteopenia Family History Family History Father Bladder cancer Brother Bladder cancer Family history of problems with anesthesia: No Surgical History Surgical History History of hysterectomy, supracervical H/O colonoscopy History of cataract surgery S/P left knee arthroscopy History of hip surgery History of Problems with Anesthesia: No Social History Social History Housing: House Patient Tobacco Use Status: Never used Tobacco e-Cigarette/Vaping Use: Never Used Second Hand Smoke Exposure: No Advance Directives: No Advance Directives Information Provided: Yes service: No Current occupational status: retired Current occupation: rt handed Cognitive needs: No Hearing needs: No Vision needs: Yes Meds Allergies Allergy/AdvReac Type Severity Reaction Status Date / Time SKYLAR Inhibitors AdvReac Mild Cough Verified 11/02/24 15:31 [facility] AdvReac Mild Rash Verified 11/02/24 15:31 Home Medications ?Medication ?Instructions ?Recorded ?Confirmed ?Last Taken ?Type aspirin-acetaminophen (buffered) tab PO PRN Headache 0 06/01/23 09/11/24 Unknown History 250 mg-250 mg tablet Exam Pertinent Lab Results Pertinent Lab Results: Laboratory Tests 06/25/24 09/03/24 15:32 07:13 WBC 10.1 Hgb 13.8 Hct 41.5 Plt Count 253 Sodium 143 Potassium 4.1 Chloride 113 H Carbon Dioxide 23 BUN 17 H Creatinine 0.98 Assessment and Plan Assessment Anesthesia Assessment: Chart Reviewed Final Anesthetic Review Family History of Problems with Anesthesia: No History of Problems with Anesthesia: No Documented by User: Shahrzad Tracey MD 11/07/24 08:03 [facility] Past Medical History Medical History Mild intermittent asthma, uncomplicated Personal history of colonic polyps Lesion of throat SI joint arthritis Chronic osteoarthritis Osteoarthritis of sacroiliac joint Osteoarthritis of right hip Nabothian cyst Lumbar spondylosis SHEBA positive Colon polyps Closed fracture of right ankle B12 deficiency Asthma Migraine Hyperlipidemia Hypertension Hypothyroidism Allergic rhinitis Osteopenia Family History Family History Father Bladder cancer Brother Bladder cancer Surgical History Surgical History History of hysterectomy, supracervical H/O colonoscopy History of cataract surgery S/P left knee arthroscopy History of hip surgery Social History Social History Housing: House Patient Tobacco Use Status: Never used Tobacco e-Cigarette/Vaping Use: Never Used Second Hand Smoke Exposure: No Advance Directives: No Advance Directives Information Provided: Yes service: No Current occupational status: retired Current occupation: rt handed Cognitive needs: No Hearing needs: No Vision needs: Yes Meds Allergies Allergy/AdvReac Type Severity Reaction Status Date / Time SKYLAR Inhibitors AdvReac Mild Cough Verified 11/02/24 15:31 amlodipine (From [facility]) AdvReac Mild Rash Verified 11/02/24 15:31 Home Medications ?Medication ?Instructions ?Recorded ?Confirmed ?Last Taken ?Type aspirin-acetaminophen (buffered) tab PO PRN Headache 0 06/01/23 09/11/24 Unknown History 250 mg-250 mg tablet Exam Airway Mallampati Class: II TM Dist: >3cm Neck ROM: Limited Heart: rrr Lungs: cta Assessment and Plan Assessment Anesthesia Assessment: Anesthesia Plan Discussed Final Anesthetic Review NPO: Yes ASA Class: III Final Preanesthetic Review: No Changes in Pt Med Stat, Meds/Allgs Chart Reviewed, Consent Obtained/Reviewed and Anes Risks/Benef Reviewed Patient Risk: Intermediate Procedure Risk: Low Anesthetic Plan Anesthetic Plan: MAC: and Agree w/ Assess. and Plan Disposition: Standard PACU
--- NOTE | ~2024-11-07 | XR_ITS ---
CLINICAL HISTORY: right renal stone 1 view abdomen Comparison: None provided Findings: The bowel-gas pattern is normal. No abnormal calcifications are seen. No acute osseous abnormality identified. IMPRESSION: No obvious renal stone is identified. This document has been electronically signed by: Hamilton Hale on 11/07/2024 08:14:55
[2024-11-07 08:49] VITALS: BP 135/65; PULSE 55; RESP 12; TEMP 36.7; O2SAT 100; BMI 21.0
[2024-11-07] MEDS: Lactated Ringers 1,000 ML 100 ML IVCONT (09:09)
--- NOTE | 2024-11-07 09:46 | MHC.SHP ---
Pre-Procedural Eval Section A - 24 Hr Update-Section A only Date of Service: 11/07/24 The patient is an INPATIENT: No Changes since office visit: No Cold of Flu in the past 2 weeks, No New Medical Problems, No Changes in Medication and No Patient answered all questions The patient has been examined within 24 hours of the surgical procedure. The History & Physical has been completed within 30 days and I have reviewed it.: Yes Section B - Complete if H&P > 30 days Chief Complaint: Calculus of ureter Details of Present Illness: right proximal ureter stone Allergies: Allergies Allergy/AdvReac Type Severity Reaction Status Date / Time SKYLAR Inhibitors AdvReac Mild Cough Verified 11/07/24 08:47 amlodipine (From Norvasc) AdvReac Mild Rash Verified 11/07/24 08:47 Review of Systems Sugical H&P ROS: Negative: Constitution, Cardiovascular, Respiratory, Neurological, Psychiatric, Hem-Onc, Allergic/Immunologic, Gastrointestinal, Genitourinary, Musculoskeletal, Integumentary, Endocrine and Eyes/Ears/Nose/Throat Exam Surgical H&P Exam: Normal: HEENT, Normal: Heart, Normal: Lungs, Normal: Extremities, Normal: Abdomen, Normal: Skin and Normal: Neurological Plan Diagnosis/Plan: Unchanged I have reviewed the history and physical and performed a pertinent physical examination on my patient. No changes have occurred unless specified. Time Spent With Patient Time: Total time managing care of this patient today ____ minutes.
--- NOTE | 2024-11-07 10:34 | P.OP_ITS ---
Operative Note Operative Note Date of Service: 11/07/24 Narrative: PreOperative Diagnosis: right ureteric stones Post Operative Diagnosis: right Renal stones Procedure: right ureteric ESWL Surgeon: Dr Antonio Good Anesthesia: mac/sedation Indications for procedure: The patient understands ESWL may be a staged procedure and subsequent i ntervention may be required based on imaging after ESWL. Quoted stone clearance rates for a solitary procedure are in the 70-80% range based primarily on stone location. They also understand there is a risk of bleeding to the kidney, infection, damage to adjacent organs, and stone migration following the procedure. - Imaging 5mm right ureteric stone Procedure optimization has been performed with IV acetaminophen given in the holding area and 1 L of lactated Ringer's to be given in order to optimize the fluid-stone interface. 20 mg of IV Lasix will be given in the last 5 minutes of the procedure to optimize stone clearance. Procedure: After informed consent was verified the patient was brought to the operating room and placed in a supine position. Anesthesia was performed per protocol. Safety pause time-out was performed. Imaging was displayed in the room and laterality confirmed. ESWL was performed. The 1st 500 shocks were performed at 60 hertz. These were performed with increasing power. Once maximum power was reached the rate was increased to 180 hertz. A total of 2500 shocks were given. Targeted imaging with ultrasound/fluoroscopy showed stone smudging suggestive of disintegration. The patient tolerated the procedure well and was transferred to the recovery area upon completion. Post procedure imaging will be organized. There was no evidence for flank discoloration.
[2024-11-07 10:45] VITALS: BP 109/55; PULSE 74; RESP 10; TEMP 36.3; O2SAT 100
[2024-11-07 11:00] VITALS: BP 126/50; PULSE 74; RESP 16; O2SAT 100
[2024-11-07 11:15] VITALS: BP 126/49; PULSE 63; RESP 16; O2SAT 100
[2024-11-07 11:30] VITALS: BP 126/54; PULSE 62; RESP 16; O2SAT 95
[2024-11-07 11:45] VITALS: BP 127/55; PULSE 62; RESP 16; TEMP 36.1; O2SAT 96
== END 2024-11-07 12:46 | disposition home or self-care (01) ==
PROVIDERS: PCP Physician Assistant; Visit Provider Urology
PROC: (CPT 50590; principal; 2024-11-07 10:10)
DX: N20.1 Calculus of ureter (principal); J45.20 Mild intermittent asthma, uncomplicated; J39.2 Other diseases of pharynx; R76.0 Raised antibody titer; I10 Essential (primary) hypertension; E78.5 Hyperlipidemia, unspecified; E03.9 Hypothyroidism, unspecified; Z88.8 Allergy status to other drugs, medicaments and biological substances; Z98.890 Other specified postprocedural states; Z79.82 Long term (current) use of aspirin
CPT/HCPCS: 50590; 74018; J0131; J1885; J1938; J2003; J2704; J3010

== ENCOUNTER → 2024-11-07 07:45 | Outpatient (BNV) | payer MEDICARE, SELFPAY | PROVIDERS: PCP Physician Assistant; Visit Provider Urology | DX: N20.1 Calculus of ureter (principal) | CPT/HCPCS: 50590 ==

== ENCOUNTER → 2024-11-07 08:00 | Outpatient (BNV) | payer MEDICARE, SELFPAY | PROVIDERS: PCP Physician Assistant; Visit Provider Radiology Vascular & Interventional Radiology | DX: N20.0 Calculus of kidney (principal) | CPT/HCPCS: 74018 ==

== ENCOUNTER 2024-12-11 12:51 | Outpatient (REF) | payer MEDICARE, SELFPAY ==
--- NOTE | ~2024-12-11 | US_ITS ---
EXAMINATION: US KIDNEY BILATERAL HISTORY: N20.1 - Calculus of ureter TECHNIQUE: Real-time grayscale ultrasound imaging of the kidneys was performed and images were reviewed. COMPARISON: Correlation is made with a CT of the abdomen without contrast dated 10/25/2024. FINDINGS: Right kidney: The right kidney measures 10.2 x 3.4 x 3.3 cm. Renal parenchymal echotexture and thickness are normal. There are no masses. There is no hydronephrosis or renal calculi. Left Kidney: The left kidney measures 9.2 x 4.5 x 3.7 cm. Renal parenchymal echotexture and thickness are normal. There are no masses. There is no hydronephrosis or renal calculi. US/US renal BI IMPRESSION: Unremarkable renal ultrasound. Electronically signed by: Arias Yee MD 12/11/2024 01:35 PM EDT
--- OUTSIDE RECORDS SUMMARY | 2024-12-11 16:24 | XMS_ITS | Clinical Summary ---
Author Organization [facility] Address [address] [place] [address] Care Team Providers Care Citrix Lead Name Role Phone Horace Stovall MD Primary [...] Screening 02/22/2024 Depression Screening and Follow-Up 02/22/2024 Health Care Proxy Review 02/22/2024 Social Drivers [...] complete this topic Procedures * Due to [place] [employer] law, this organization might not be sharing [...] to Health Maintenance Results * Due to [place] law, this organization might not be sharing [...] 10/29/2021 [facility] Screening Digital Mammogram and 10/20/2020 [facility] Screening Digital Mammogram Bilateral Breast [...] OF RADIOLOGY Patient: KAREN SIMONS Unit #: [id number] Ordering MD: DEREJE NUNEZ MD : 1950 Procedure: DEXA Bone Density Axial Age: 71 Location: XRAY Exam Date: 05/26/22 Status: [facility] Room/Bed: Primary MD: YONATAN MAC DO Patient [...] BY: Arias Miranda MD 05/26/2022 11:22 AM [id number] Procedure Note Arias Miranda MD - 11/17/2022 DEPARTMENTOF RADIOLOGY Peng t: KAREN SIMONS Unit #:[id number] Ordering MD: DEREJE NUNEZ MD :1950 Procedure: DEXA Bone Density Axial Age:71 Location: XRAY ExamDate: 05/26/22 Status: REG CLIRoom/Bed: Primary MD: YONATAN MAC DO PatientAcct #: [id number] Order:DEXABONE Additional Copy: DEREJE NUNEZ MD, YASIR [...] SIGNED BY: Arias Miranda MD 05/26/2022 11:22 [id number] Dereje Nunez MD IMG DXA PROCEDURES Final [...] Most Recently Relevant to Health Maintenance Insurance [facility] MCR Advance Directives Documents on File Type Date Recorded Patient Rip Sawyer Expl anation Health Care Proxy 03/02/2022 03/02/2022 Health Care Proxy 08/07/2021 07/24/2021 Care Teams Citrix Lead Relationship Specialty Start Date End Date Horace Stovall MD [address] [place] [address] PCP - General Internal Medicine 08/01/23
--- OUTSIDE RECORDS SUMMARY | 2024-12-11 16:24 | XMS_ITS | Clinical Summary ---
Author Organization [facility] Address [address] [place] [address] Care Team Providers Care Wharf Helper Name Role Phone No, Pcp CHEESE FACTORY WORKER Primary Care Provider Unavailabl e Allergies Active [...] or above (or HM Modifier)([facility]) 08/04/1967 Hepatitis C Virus Infection in Adolescents and Adults: Screening (or Modifier) ([facility]) 08/04/1967 SDNH Screening Reminder: Miriam brooks for all adults ([facility]) 08/04/1967 Tobacco Smoking Cessation: i n Adults excluding Women: Behavioral and Pharmacotherapy Interventions ([facility]) 08/04/1967 DTaP/Tdap/Td Vaccines ([facility]) (1 - Tdap) 1968 Colorectal Cancer Screening 45 -75 Yrs (or HM Modifier) 1994 Colorectal Cancer: FLEXIBLE SIGMOIDOSCOPY Screening every 5 yrs 1994 Colorectal Cancer: Fecal Imm unochemical Test (FIT) Annually [facility] 1994 Colorectal Cancer: High-sens itivity gFOBT Screening Annually [facility] 1994 Colorectal Cancer: Stool Col oguard Screening every 3 yrs 1994 Colorectal Cancer:CT Colonog kenya Screening every 5 yrs 1994 Pneumococcal Vaccination Scr eening: Patients 50+ yrs of age ([facility]) (1 of 1 - PCV) 08/04/1999 Zoster/Shingles Vaccine Seri es Screening: Adults aged 18+ yrs (or HM Modifiers)([facility]) (1 of 2) 08/04/1999 Osteoporosis Screening to Pr event Fractures: Women aged 65 years+ ([facility]) 2014 RSV Vaccines (1 - 1-dose 75+ series) 2024 Flu Vaccination: Ages 65+: Y early High Dose Recommended (or Modifier)([facility]) 09/21/2024 10/31/2017, 7 COVID-19 Vaccine Screening: Initial Series and Booster Status ([facility]) ( season) 2024 [id number] MEDICARE Care Teams Wharf Helper Relationship Specialty Start Date End Date No, Pcp, CHEESE FACTORY WORKER N/A Do not use PCP - General 11/21/19
--- OUTSIDE RECORDS SUMMARY | 2024-12-11 16:24 | XMS_ITS | Patient Health Record ---
Author Organization [facility] Address [address] [place], [place] [address] Care Team Providers Care Mechanical Engineering Director Name Role Phone Lee Barnes MD Primary Care Provider Michael Leonard Unavailable [phone] Josh Power Unavailable Unavailable Allergies Allergen (clinical drug ingredient) Drug/Non Drug Allergy documented on EMR Reaction Allergy Type Onset Date Status amlodipine Norvasc rash Drug Allergy Active angiotensin-converting enzyme inhibitor (FN) SKYLAR Inhibitors Unknown Drug Allergy Acti ve Reason For Referral No Information Medications Medication SIG (Take, Route, Frequency, Duration) Notes Start Date End Date Status Tamsulosin HCl 0.4 MG Capsule TAKE 1 CAPSULE BY MOUTH AT BEDTIME FOR 14 DAYS Oral; Duration: 14 Days Active Naproxen 500 MG Tablet Oral; Duration: 7 Days Active prevastin 40mg one capsual once a day Active Topiramate 25 MG Tablet 1 tablet Orally Once a day; Duration: 30 day(s) twice a day Active Fluticasone Propionate 50 MCG/ACT Suspension 1 spray in each nostril Nasally Once a day; Duration: 90 days Active Levoxyl 75 MCG Tablet 1 tablet in the morning on an empty stomach Orally Once a day Active Losartan Potassium 50 MG Tablet 1 tablet Orally Once a day; Duration: 30 day(s) Active Amoxicillin 500 MG Capsule 1 capsule Orally every 8 hrs; Duration: 5 days 11/14/2024 Active Alendronate Sodium 35 MG Tablet 1 tablet 30 minutes before the first food, beverage or medicine of the day with plain water Orally; Duration: 30 day(s) Not-Taking/PRN Super B Complex Not- Taking/PRN Calcium + D 500-1000-40 MG-UNT-MCG Tablet Chewable as directed Orally Active Breztri Aerosphere 160-9-4.8 MCG/ACT Aerosol 2 puffs Inhalation Twice a day; Duration: 30 days 11/14/2024 Active SUMAtriptan Succinate 25 MG Tablet 1 tablet at least 2 hours between doses as needed Orally Twice a day as needed Active Albuterol Sulfate HFA 108 (90 Base) MCG/ACT Aerosol Solution 1 puff as needed Inhalation every 4 hrs Active Social History Tobacco Use: Social History Observation Description Date Details (start date - stop date) Never Smoker NA - NA Social History Social History Social Info Question Answer Notes Tobacco Are you a: never smoker Additional Findings: Tobacco Non-User Does not u se moist powdered tobacco Additional Details Category Social Info Options Details Social History 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 exposure: None Alcohol: None Recreational drug use: None Marital status Problems Problem Type SNOMED Code ICD Code Onset Dates Problem Status W/U Status Risk Notes Problem Allergic rhinitis (04412393) Allergic rhinitis (J30.9) Active confirmed Problem Moderate persistent asthma (669705239) Moderate persistent asthma (J45.40) Active confirmed Problem Acute maxillary sinusitis (85877642) Subacute maxillary sinusitis (J01.00) Active confirmed Vital Signs Heart Rate 70 /min 11/14/2024 Respiratory Rate 16 /min 11/14/2024 Blood pressure diastolic 62 mm Hg 11/14/2024 Height 66 in 11/14/2024 Blood pressure systolic 118 mm Hg 11/14/2024 Weight 129 lbs 11/14/2024 BMI 20.82 kg/m2 11/14/2024 Encounters Encounter Location Date Provider Diagnosis [facility] [address] [place] [address] 05/09/2024 Michael Aghassi Moderate persistent asthma J45.40 and Allergic rhinitis J30.9 [facility] [address] [place] [address] 11/14/2024 Michael Aghassi Moderate persistent asthma J45.40 ; Allergic rhinitis J30.9 and Subacute maxillary sinusitis J01.00 Assessments Encounter Date Diagnosis (ICD Code) Assessment Notes Treatment Notes Treatment Clinical Notes Section Notes 05/09/2024 Moderate persistent asthma (ICD-10 - J45.40) Will require pneumonia vaccination if has not received yet also influenza vaccination annually. Also had RSV vaccine 11/14/2024 Allergic rhinitis (ICD-10 - J30.9) 11/14/2024 Moderate persistent asthma (ICD-10 - J45.40) Will require pneumonia vaccination if has not received yet also influenza vaccination annually. Also had RSV vaccine. She has difficutly with Trelegy causing hoarsness 05/09/2024 Allergic rhinitis (ICD-10 - J30.9) 11/14/2024 Subacute maxillary sinusitis (ICD-10 - J01.00) She will use OTC decongestants as well Plan Of Treatment Pending Test Test Name Order Date Chest X-Ray PA and Lateral 08/04/2021 Next Appt Details Provider Name:Michael Gant, 02/08/2025 09:45:00 AM, [address] [facility], [address], [place], [place], [id number], Insurance Providers Payer Name Payer Address Payer Phone Subscriber Number Group Number Insured Name Patient Relationship to Insured Coverage Start Date Coverage End Date [facility] [address] [place] [address] [id number] FEROZ SIMONS Self - patient is the insured Medical (General) History Medical History History ICD Code Hyperlipidemia Hypothyroidism Back pain Migraine headache G43.909 Allergic rhinitis J30.9 Moderate persistent asthma J45.40 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
== END 2024-12-11 12:52 | disposition home or self-care (01) ==
LOC: HO.US 12:51
PROVIDERS: PCP Physician Assistant; Visit Provider Urology
DX: N20.1 Calculus of ureter (principal)
CPT/HCPCS: 76775

== ENCOUNTER → 2024-12-11 12:52 | Outpatient (BNV) | payer MEDICARE, SELFPAY | PROVIDERS: PCP Physician Assistant; Visit Provider Radiology Diagnostic Radiology | DX: N20.1 Calculus of ureter (principal) | CPT/HCPCS: 76775 ==

== ENCOUNTER 2024-12-21 11:30 | Outpatient (REF) | payer OTHER, SELFPAY | END 2024-12-21 11:31 | disposition home or self-care (01) | LOC: HO.LAB 11:30 | PROVIDERS: PCP Physician Assistant; Visit Provider Urology | DX: Z13.89 Encounter for screening for other disorder (principal) ==

== ENCOUNTER 2024-12-21 11:30 | Outpatient (AMB) | payer OTHER, SELFPAY ==
--- NOTE | 2024-12-21 11:36 | MHC.OFFVIS ---
Intake Visit Reasons: ESWL/US Intake Note: Patient is present for Ultrasound follow up Urology Med: Tamsulosin Antibiotic Allergy: None Blood Thinner:aspirin [employer] Required: No Accompanied by: Self / Same As Patient Allergies SKYLAR Inhibitors Adverse Reaction (Mild, Verified 12/21/24 11:42) Cough amlodipine (From Norvasc) Adverse Reaction (Mild, Verified 12/21/24 11:42) Rash HPI Comments Details: Karen is a pleasant female. She is a patient of Dr. Butts. She is seen for the following urologic conditions - nephrolithiasis Post ESWL Effective clearance Dietary advice regarding decreased salt intake Start B6 Nephrolithiasis Persistent pain right side since April CT - Right: No renal stones. There is a 0.4 cm stone in the proximal ureter that results in mild dilatation of the proximal ureter and renal pelvis Underwent ESWL Imaging - 12/15 renal ultrasound no evidence of stones PFSH Medical History Mild intermittent asthma, uncomplicated Personal history of colonic polyps Lesion of throat SI joint arthritis Chronic osteoarthritis Osteoarthritis of sacroiliac joint Osteoarthritis of right hip Nabothian cyst Lumbar spondylosis SHEBA positive Colon polyps Closed fracture of right ankle B12 deficiency Asthma Migraine Hyperlipidemia Hypertension Hypothyroidism Allergic rhinitis Osteopenia Surgical History History of hysterectomy, supracervical H/O colonoscopy History of cataract surgery S/P left knee arthroscopy History of hip surgery Family History Father Bladder cancer Brother Bladder cancer Social History Housing: House Are you a primary healthcare representative to a significant other at home: No Do you presently have visiting nurse or other home services: No Patient Tobacco Use Status: Never used Tobacco e-Cigarette/Vaping Use: Never Used Second Hand Smoke Exposure: No service: No Current occupational status: retired Current occupation: rt handed Cognitive needs: No Hearing needs: No Vision needs: Yes Review of Systems Const Denies chills and Denies fever(s) Card Reports no additional complaints and Denies syncope Resp Denies cough GI Denies abdominal pain and Denies heartburn Reports as per HPI and Denies change in libido Neuro Denies syncope Psych Denies change in libido Endo Denies change in libido Physical Exam Const General: cooperative, healthy appearing, comfortable and no acute distress Orientation/consciousness: patient oriented x3 HEENT Face and sinus: Yes normal facial exam Mouth: moist mucous membranes Neck Neck: Yes normal visual inspection, Yes full ROM and Yes trachea midline Chest Chest palpation & inspection: normal inspection of the chest Resp Effort & Inspection: normal respiratory effort, able to speak in complete sentences and no respiratory distress GI Inspection: Yes normal to inspection Back/Spine/Pelvis Cervical Spine: normal cervical lordosis Thoracic/Lumbar Spine: thoracic and lumbar spine normal to inspection Skin General skin exam: no rashes or lesions noted Neuro General: patient oriented x3, gait normal, tone normal and moves all extremities Extrem General: Yes normal to inspection and Yes capillary refill normal Assessment & Plan Assessment & Plan (1) Right ureteral stone: Code(s): N20.1 - Calculus of ureter Category: Medical Plan Twelve month follow-up renal ultrasound Orders: Orders US renal BI 12 Months N20.1 - Calculus of ureter Medications: New pyridoxine (vitamin B6) 50 mg PO DAILY 90 tabs 3RF 90 days N20.1 - Calculus of ureter Patient Instructions: This note is constructed using voice recognition software. While every effort has been made to ensure accuracy signals officer errors may have been included. Imaging studies, laboratory and physical exam results were discussed and reviewed in detail. No major barriers to patient understanding were identified. An opportunity to ask questions regarding the treatment plan was provided. All questions were answered. The patient expressed understanding and agreement with the above treatment plan. The patient is aware they should contact our office by phone for worsening of their current condition or the appearance of new urologic symptoms. Compliance is encouraged with any medications and followup testing that is ordered. It is a privilege to participate in the urologic care of your patient. If you have any questions or concerns regarding treatment for the above conditions, or other urologic issues, please do not hesitate to contact me. The office telephone contact is [phone]. Sincerely, Dr Antonio Good MD, [facility] Compassionate Specialist Care for the Genitourinary System Coding Level of Care Code Est Pt Level 3 (27083) Complex EM visit Add On G2211 Diagnoses Right ureteral stone N20.1
--- OUTSIDE RECORDS SUMMARY | 2024-12-21 13:10 | XMS_ITS | Clinical Summary ---
Author Organization [facility] Address [address] [place] [address] Phone Care Team Providers Care Custodial Operations Manager Name Role Phone Physician, Pcp Unknown [...] Maintenance Due Date Last Done Comments Colorectal Cancer Screening: Colonoscopy 1950 DTaP,Tdap,and Td Vaccines (1 - Tdap) 1968 Pneumococcal Vaccine: 50+ Ye ars (1 of 1 - PCV) 08/04/1999 Zoster Vaccines (1 of 2) 08/04/1999 Depression Screening 02/22/2024 Falls Risk Assessment 03/22/2024 Hepatitis C Screening [...] HEALTHCARE MEDICARE [employer] MEDICARE Care Teams Custodial Operations Manager Relationship Specialty Start Date End Date Physician, Pcp Unknown PCP - General 03/22/24
--- OUTSIDE RECORDS SUMMARY | 2024-12-21 13:10 | XMS_ITS | Patient Health Record ---
Author Organization [facility] Address [address] [place], [place] [address] Care Team Providers Care Environmental Department Manager Name Role Phone Lee Barnes MD Primary Care Provider Michael Leonard Unavailable [phone] Josh Power Unavailable Unavailable Allergies Allergen (clinical [...] W/U Status Risk Notes Problem Allergic rhinitis (45687208) Allergic rhinitis (J30.9) Active confirmed Problem Moderate persistent asthma (129602753) Moderate persistent asthma (J45.40) Active confirmed Problem Acute maxillary sinusitis (11985808) Subacute maxillary sinusitis (J01.00) Active confirmed Vital Signs Heart Rate 70 /min 11/14/2024 Respiratory Rate 16 /min 11/14/2024 Blood pressure diastolic 62 mm Hg 11/14/2024 Height 66 in 11/14/2024 Blood pressure systolic 118 mm Hg 11/14/2024 Weight 129 lbs 11/14/2024 BMI 20.82 kg/m2 11/14/2024 Encounters Encounter Location Date Provider Diagnosis [facility] [place] [address] [place] [address] 05/09/2024 Michael Aghassi Moderate persistent asthma J45.40 and Allergic rhinitis J30.9 [facility] [place] [address] [place] [address] 11/14/2024 Michael Aghassi Moderate persistent asthma J45.40 [...] Provider Name:Michael Gant, 02/08/2025 09:45:00 AM, [address] [facility], [address], [place], [place], [id number], Insurance Providers Payer Name Payer Address Payer Phone Subscriber Number Group Number Insured Name Patient Relationship to Insured Coverage Start Date Coverage End Date 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
--- OUTSIDE RECORDS SUMMARY | 2024-12-21 13:10 | XMS_ITS | Clinical Summary ---
Author Organization [facility] Address [address] [place] [address] Care Team Providers Care Sole Edge Inker Machine Name Role Phone No, Pcp GLOVE WRAPPER Primary Care Provider Unavailabl e Allergies Active [...] Orientation Not on file Plan of Treatment Not on file Medical Devices Not on file Insurance [facility] [place] [id number] MEDICARE Care Teams Sole Edge Inker Machine Relationship Specialty Start Date End Date No, Pcp, GLOVE WRAPPER N/A Do not use PCP - General 11/21/19
--- OUTSIDE RECORDS SUMMARY | 2024-12-21 13:10 | XMS_ITS | Encounter Summary ---
Author Organization [facility] Address [address] [place] [address] Care Team Providers Care Syrup Shed Supervisor Name Role Phone Physician, Pcp Unknown Primary Care Provider Sara vailable Encounter Details Date Type Department Care Team (Late st Contact Info) Description 03/22/2024 Lab Requisition [facility] - Main Lab [address] [facility] [place] [address] Joshua Arreaga MD [address] [facility] [address] [place] [address] Gross hematuria Social History Tobacco [...] AM EST) Final Diagnosis A. Urine, Voided, ([id number]): Negative for high grade urothelial carcinoma. Acute inflammatory cells are present. 04/02/2024 4:56 PM EST [facility] Clinical Information Gross hematuria R31.0 Urine cytology with reflex UroV[facility]ion ([facility]) 04/02/2024 4:56 PM EST [facility] Gross Description A. Urine, Voided, ([id number]): Received is one ThinPrep slide for cytology. 04/02/2024 4:56 PM EST [facility] Disclaimer Unless otherwise specified, all tissue is 10% NB formalin fixed and paraffin embedded. Technical pathology services provided by [facility] at [address] [facility] [address], [place] [address] (CLIA #[id number]/Trino Retana MD, Second Watch Sergeant) 04/02/2024 4:56 PM EST [facility] Tissue Urine specimen from urethra / Unknown 03/20/2024 03/22/2024 2:13 PM EST us Joshua Arreaga MD LAB PATHOLOGY ORDERABLES Final Result [facility] [address] [place] [address], documented in this encounter Visit Diagnoses Diagnosis Gross hematuria documented in this encounter Care Teams Syrup Shed Supervisor Relationship Specialty Start Date End Date Physician, Pcp Unknown PCP - General 03/22/24 documented as of this encounter
--- OUTSIDE RECORDS SUMMARY | 2024-12-21 13:10 | XMS_ITS | Clinical Summary ---
Author Organization [facility] Address [address] [place] [address] Care Team Providers Care Retail Presentation Specialist Name Role Phone Horace Stovall MD [...] complete this topic Procedures * Due to [place] [employer] law, this organization might not be sharing [...] to Health Maintenance Results * Due to [place] [employer] law, this organization might not be sharing [...] 10/29/2021 [facility] Screening Digital Mammogram and 10/20/2020 [facility] Screening Digital Mammogram Bilateral Breast Findings: The [...] OF RADIOLOGY Patient: KAREN SIMONS Unit #: [id number] Ordering MD: DEREJE NUNEZ MD : 1950 Procedure: DEXA Bone Density Axial Age: 71 Location: XRAY Exam Date: 05/26/22 Status: [facility] Room/Bed: Primary MD: YONATAN MAC DO Patient Order: DEXABONE Additional Copy: DEREJE NUNEZ MD, YASIR DO - EXAM: BONE MINERAL DENSITY PROCEDURE: The bone mineral density (BMD) of the spine and proximal left femur was determined using an external X-ray source (Hologic). SITE: [facility] COMPARISON: Prior BMD of 2020 FINDINGS: [...] BY: Arias Miranda MD 05/26/2022 11:22 AM [id number] Procedure Note Arias Miranda MD - 11/17/2022 DEPARTMENTOF RADIOLOGY Peng t: KAREN SIMONS Unit #:[id number] Ordering MD: DEREJE NUNEZ MD :1950 Procedure: DEXA Bone Density Axial Age:71 Location: XRAY ExamDate: 05/26/22 Status: REG CLIRoom/Bed: Primary MD: YONATAN MAC DO PatientAcct #: [id number] Order:DEXABONE Additional Copy: DEREJE NUNEZ MD, YASIR DO - EXAM: BONE MINERAL DENSITY PROCEDURE: The bone mineral density (BMD) of the spine and proximal leftfemur was determined using an external X-ray source (Hologic). SITE: [facility] COMPARISON: Prior BMD of 2020 FINDINGS: [...] SIGNED BY: Arias Miranda MD 05/26/2022 11:22 [id number] Dereje Nunez MD IMG DXA PROCEDURES Final [...] Most Recently Relevant to Health Maintenance Insurance [facility] MCR Advance Directives Documents on File Type Date Recorded Patient Bone Density Technician Expl anation Health Care Proxy 03/02/2022 03/02/2022 Health Care Proxy 08/07/2021 07/24/2021 Care Teams Retail Presentation Specialist Relationship Specialty Start Date End Date Horace Stovall MD [address] [place] [id number] PCP - General Internal Medicine 08/01/23
== END 2024-12-21 12:03 | disposition home or self-care (01) ==
LOC: HO.HUSH 11:31
PROVIDERS: PCP Physician Assistant; Visit Provider Urology
DX: N20.1 Calculus of ureter (principal)
CPT/HCPCS: 99024

== ENCOUNTER 2025-01-21 10:43 | Outpatient (REF) | payer OTHER, SELFPAY ==
--- NOTE | ~2025-01-21 | MM_ITS ---
EXAMINATION: MM SCREENING DIGITAL BREAST TOMOSYNTHESIS, BILATERAL CLINICAL INFORMATION: Screening. Asymptomatic. COMPARISON: Mammography: Comparison is made with available priors TECHNIQUE: Digital breast mammography with tomosynthesis is performed in both the craniocaudal and mediolateral oblique views along with computer-aided detection (CAD). FINDINGS: There are scattered areas of fibroglandular density. Focal asymmetry upper outer right breast stable dating back to 2020. There are no significant masses, abnormal calcifications, or other abnormalities. MM/MM tomosynthesis screening BI IMPRESSION: No mammographic evidence of malignancy. ASSESSMENT: BI-RADS Category 2: Benign RECOMMENDATION: Routine annual mammography screening. 1 year F/U This examination should not preclude the clinical evaluation of a suspicious palpable abnormality. This patient's information was entered into a reminder system with a target due date for their next mammogram. Electronically signed by: Courtney Segundo DO 01/21/2025 12:32 PM BLANK
--- OUTSIDE RECORDS SUMMARY | 2025-01-21 13:41 | XMS_ITS | Clinical Summary ---
Author Organization [facility] Address [address] [place] [address] Care Team Providers Care Canal Boat Captain Name Role Phone Horace Stovall MD Primary [...] Screening 02/22/2024 Depression Screening and Follow-Up 02/22/2024 Fall Risk Screening 02/22/2024 Health Care Proxy Review 02/22/2024 Social Drivers of Health Annual Screening 02/22/2024 Influenza Vaccine (#1) 2024 , 12/01/2022, 12/01/2021, Additional history exists COVID-19 Vaccine ( season) 2024 12/01/2022, 12/01/2021, 12/01/2021, Additional history exists Pneumococcal Vaccine: 50+ [...] complete this topic Procedures * Due to [place] [email or web address] law, this organization might not be sharing [...] to Health Maintenance Results * Due to [place] [email or web address] law, this organization might not be sharing [...] of this study. COMPARISON Compared to: 10/29/2021 [facility] Screening Digital Mammogram and 10/20/2020 [facility] Screening Digital Mammogram Bilateral [...] OF RADIOLOGY Patient: KAREN SIMONS Unit #: [id number] Ordering MD: DEREJE NUNEZ MD : 1950 Procedure: DEXA Bone Density Axial Age: 71 Location: XRAY Exam Date: 05/26/22 Status: [facility] Room/Bed: Primary MD: YONATAN MAC DO Patient Order: DEXABONE Additional Copy: DEREJE NUNEZ MD, YASIR DO - EXAM: BONE MINERAL DENSITY PROCEDURE: The bone mineral density (BMD) of the spine and proximal left femur was determined using an external X-ray source (Hologic). SITE: [facility] COMPARISON: Prior BMD of 2020 FINDINGS: [...] BY: Arias Miranda MD 05/26/2022 11:22 AM [id number] Procedure Note Arias Miranda MD - 11/17/2022 DEPARTMENTOF RADIOLOGY Patien t: KAREN SIMONS Unit #:[id number] Ordering MD: DEREJE NUNEZ MD :1950 Procedure: DEXA Bone Density Axial Age:71 Location: XRAY ExamDate: 05/26/22 Status: REG CLIRoom/Bed: Primary MD: YONATAN MAC DO PatientAcct #: [id number] Order:DEXABONE Additional Copy: DEREJE NUNEZ MD, YASIR DO - EXAM: BONE MINERAL DENSITY PROCEDURE: The bone mineral density (BMD) of the spine and proximal leftfemur was determined using an external X-ray source ([employer]). SITE: [facility] COMPARISON: Prior BMD of 2020 FINDINGS: [...] SIGNED BY: Arias Miranda MD 05/26/2022 11:22 [id number] Dereje Nunez MD IMG DXA PROCEDURES Final [...] Most Recently Relevant to Health Maintenance Insurance [facility] MCR Advance Directives Documents on File Type Date Recorded Patient Magnet Valve Assembler Expl anation Health Care Proxy 03/02/2022 03/02/2022 Health Care Proxy 08/07/2021 07/24/2021 Care Teams Canal Boat Captain Relationship Specialty Start Date End Date Horace Stovall MD [address] [place] [id number] PCP - General Internal Medicine 08/01/23
--- OUTSIDE RECORDS SUMMARY | 2025-01-21 13:41 | XMS_ITS | Clinical Summary ---
Author Organization [facility] Address [address] [place] [address] Care Team Providers Care Marketing Operations Specialist Name Role Phone No, Pcp SALESMAN/OWNER Primary Care Provider Unavailabl e Allergies Active [...] file Medical Devices Not on file Insurance [place] [id number] MEDICARE Care Teams Marketing Operations Specialist Relationship Specialty Start Date End Date No, Pcp, SALESMAN/OWNER N/A Do not use PCP - General 11/21/19
== END 2025-01-21 10:44 | disposition home or self-care (01) ==
LOC: HO.MAMMO 10:43
PROVIDERS: PCP Physician Assistant; Visit Provider Physician Assistant
DX: Z12.31 Encounter for screening mammogram for malignant neoplasm of breast (principal)
CPT/HCPCS: 77063; 77067

== ENCOUNTER → 2025-01-21 11:07 | Outpatient (BNV) | payer OTHER, SELFPAY | PROVIDERS: PCP Physician Assistant; Visit Provider Internal Medicine | DX: Z12.31 Encounter for screening mammogram for malignant neoplasm of breast (principal) | CPT/HCPCS: 77063; 77067 ==